=== PATIENT | female | born 1945 | race Caucasian/White ===

== ENCOUNTER 2016-07-26 23:52 | Inpatient (IN) | payer MEDICARE, OTHER ==
[2016-07-27] MEDS ORDERED: HYDROmorphone 1 MG/ML 1 ML SYRINGE IVP STA (00:51)
[2016-07-27] MEDS ORDERED: ONDANSETRON 4 MG/2 ML VIAL IVP STA (00:51)
[2016-07-27] MEDS ORDERED: SODIUM CHLORIDE 0.9% 1,000 ML IV ONE (00:51)
--- NOTE | 2016-07-27 01:11 | ED ---
Abdominal Pain HPI - General Source: patient, RN notes reviewed Mode of arrival: wheelchair Limitations: no limitations <Sarah Toney - Last Filed: 07/27/16 04:21> <Collin Barnhart - Last Filed: 08/03/16 08:51> - General Chief Complaint: Abdominal Pain Stated Complaint: Abd Pain/Vomiting Time Seen by Provider: 07/27/16 00:25 - History of Present Illness Initial Comments: Patient is a 70-year-old female presents to the emergency room for evaluation of abdominal pain. Patient states the pain began around 7 PM this evening. Patient states the pain began about 2 hours after she ate. Patient states the pain is sharp and constant. Patient states she never had pain this bad before. Patient states the pain is a right upper quadrant radiates to her back. Patient states that she's been vomiting from the pain. Patient does admit that she's had slight right upper quadrant pain over the past few weeks and is supposed to go in for an ultrasound of her gallbladder tomorrow morning. Patient states she has a history section. Patient denies any other surgical histories in her abdomen. Patient denies chest pain, shortness of breath, fevers, chills. Patient denies constipation or diarrhea. Patient states she is very nauseous right now. Patient states having 10 out of 10 pain. (Sarah Toney) - Related Data Home Medications Medication Instructions Recorded Confirmed Aspirin 81 mg PO HS 11/03/14 07/27/16 Cetirizine HCl [Zyrtec] 10 mg PO DAILY PRN 11/03/14 07/27/16 Cholecalciferol [Vitamin D3] 1,000 unit PO DAILY@69911/03/14 07/27/16 FLUoxetine HCL [PROzac] 20 mg PO DAILY@69911/03/14 07/27/16 Fenofibrate Nanocrystallized 145 mg PO HS 11/03/14 07/27/16 [Tricor] Fluticasone/Salmeterol [Advair 1 puff INHALATION RT-BID 11/03/14 07/27/16 100-50 Diskus] Metoprolol Tartrate [Lopressor] 50 mg PO BID 11/03/14 07/27/16 Pantoprazole Sodium 40 mg PO DAILY@59911/03/14 07/27/16 Sucralfate [Carafate] 1 gm PO QID PRN 11/03/14 07/27/16 Albuterol Sulfate [Proventil Hfa] 2 puff INHALATION RT-Q6H PRN 07/27/16 07/27/16 Digoxin [Lanoxin] 125 mcg PO DAILY 07/27/16 07/27/16 Estradiol [Vagifem] 10 mcg VAGINAL Q72H 07/27/16 07/27/16 Levothyroxine Sodium [Synthroid] 112 mcg PO DAILY@0600 07/27/16 07/27/16 busPIRone HCL 15 mg PO DAILY@0600 07/27/16 07/27/16 mg Trisilicate/Alh/Nahco3/Aa 2 tab PO QID PRN 07/27/16 07/27/16 [Gaviscon 80-14.2 mg Tab Chew] Previous Rx's Medication Instructions Recorded Amoxic-Pot Clav 875-125Mg 1 tab PO Q12HR #14 tablet 07/28/16 [Augmentin 875-125] traMADol HCl [Ultram] 50 mg PO Q4H PRN #20 tab 07/28/16 Ondansetron HCl [Zofran] 4 mg PO Q6H PRN #14 tablet 07/29/16 traMADol HCl [Ultram] 50 mg PO QID tab 07/29/16 Allergies Allergy/AdvReac Type Severity Reaction Status Date / Time atorvastatin calcium Allergy Itching Verified 07/27/16 08:29 [From Lipitor] codeine Allergy Nausea Verified 07/27/16 08:29 erythromycin base Allergy Abdominal Verified 07/27/16 08:29 Pain yeast, dried [yeast] Allergy Nausea & Verified 07/27/16 08:29 Vomiting & Diarrhea Iodinated Contrast Media - AdvReac KIDNEY Verified 07/27/16 08:43 Oral and ISSUES Review of Systems ROS Other: All systems not noted in ROS Statement are negative. <Sarah Toney - Last Filed: 07/27/16 04:21> ROS Other: All systems not noted in ROS Statement are negative. <Collin Barnhart - Last Filed: 08/03/16 08:51> ROS Statement: Those systems with pertinent positive or pertinent negative responses have been documented in the HPI. Past Medical History Past Medical History: Atrial Fibrillation, Asthma, GERD/Reflux, Hyperlipidemia, Thyroid Disorder Additional Past Medical History / Comment(s): lo, back pain DDD SPINAL STENOSIS, BOARDERLINE DIABETIC, KIDNEY STONES, UTI, CATARACT History of Any Multi-Drug Resistant Organisms: None Reported Past Surgical History: Adenoidectomy, Breast Surgery, Section, Orthopedic Surgery, Tonsillectomy Additional Past Surgical History / Comment(s): thyroidectomy, LT KNEE REPLACEMENT(HAD SEVERAL SX ON THAT KNEE, 1 ST ONE HAD A TORN MENISCUS HAD SX THEN GOT INFECTION /SEPTIC HAD TO REOPEN IT. THEN 20 YEARS LATER HAD A TOTAL KNEE REPLACEMENT.MILES CARPAL TUNNEL, CKC, 3 RT BREAST LUMPS REMOVED ALL BENIGN, STERO BIOPSY FOR SUSPICIUS CALCIFICATION BUT CAME BACK BENIGN, Past Anesthesia/Blood Transfusion Reactions: Motion Sickness Past Psychological History: Depression Smoking Status: Never smoker Past Alcohol Use History: Occasional Past Drug Use History: None Reported - Past Family History Father Additional Family Medical History / Comment(s): PARONIOD SCHITZ, HX TB. COMMITTED SUICIDE. Mother Additional Family Medical History / Comment(s): LEG INFECTION PT BECAME SEPTIC WAS HOSPITALIZED BUT . <Sarah Toney - Last Filed: 07/27/16 04:21> General Exam Limitations: no limitations General appearance: alert, in no apparent distress Head exam: Present: atraumatic, normocephalic, normal inspection Eye exam: Present: normal appearance ENT exam: Present: normal exam Neck exam: Present: normal inspection Respiratory exam: Present: normal lung sounds bilaterally. Absent: respiratory distress Cardiovascular Exam: Present: regular rate, normal rhythm, normal heart sounds GI/Abdominal exam: Present: soft, tenderness (RUQ), guarding (Voluntary guarding on palpating over the right upper quadrant), normal bowel sounds. Absent: distended, rebound, rigid Extremities exam: Present: normal inspection Back exam: Present: normal inspection Neurological exam: Present: alert, oriented X3, CN II-XII intact, normal gait Psychiatric exam: Present: normal affect, normal mood Skin exam: Present: warm, dry, intact, normal color. Absent: rash <Sarah Toney - Last Filed: 07/27/16 04:21> <Collin Barnhart - Last Filed: 08/03/16 08:51> - General Exam Comments Initial Comments: Laying in exam room, she was uncomfortable secondary to pain, no acute distress (Sarah Toney) Medical Decision Making - Lab Data Result diagrams: 07/27/16 00:50 07/27/16 00:50 - Radiology Data Radiology results: report reviewed, image reviewed <Sarah Toney - Last Filed: 07/27/16 04:21> - Lab Data Result diagrams: 07/29/16 06:28 07/29/16 06:28 <Collin Barnhart - Last Filed: 08/03/16 08:51> - Medical Decision Making Patient is a 70-year-old female presents to the emergency room for evaluation of abdominal pain. Labs shows no significant findings. However, ultrasound: Findings raising concern for the presence of acute cholecystitis. Examination of mild biliary and pancreatic ductal dilation can be seen in the setting of choledocholithiasis distally located stone, or due to a process involving the pancreatic head, the former of which is favored given the other findings present (per radiology). Case discussed with Dr. Barnhart. Patient will be admitted and further evaluated by general surgery. (Sarah Toney) I saw this patient in conjunction with the physician diver assistant. I performed independent history and physical exam. Agree with case management. (Collin Barnhart) - Lab Data Lab Results 07/27/16 07/27/16 07/27/16 Range/Units 00:50 00:50 00:50 WBC 6.3 (3.8-10.6) k/uL RBC 4.64 (3.80-5.40) m/uL Hgb 13.5 (11.4-16.0) gm/dL Hct 38.8 (34.0-46.0) % MCV 83.7 (80.0-100.0) fL MCH 29.2 (25.0-35.0) pg MCHC 34.9 (31.0-37.0) g/dL RDW 12.6 (11.5-15.5) % Plt Count 197 (150-450) k/uL Neutrophils % 70 % Lymphocytes % 23 % Monocytes % 5 % Eosinophils % 1 % Basophils % 0 % Neutrophils # 4.4 (1.3-7.7) k/uL Lymphocytes # 1.4 (1.0-4.8) k/uL Monocytes # 0.3 (0-1.0) k/uL Eosinophils # 0.1 (0-0.7) k/uL Basophils # 0.0 (0-0.2) k/uL Sodium 143 (137-145) mmol/L Potassium 4.1 (3.5-5.1) mmol/L Chloride 106 (98-107) mmol/L Carbon Dioxide 21 L (22-30) mmol/L Anion Gap 16 mmol/L BUN 23 H (7-17) mg/dL Creatinine 1.10 H (0.52-1.04) mg/dL Est GFR (MDRD) Af Amer 60 (>60 ml/min/1.73 sqM) Est GFR (MDRD) Non-Af 49 (>60 ml/min/1.73 sqM) Glucose 182 H (74-99) mg/dL Estimated Ave Glu mg/dL 126 mg/dL Hemoglobin A1c 6.0 (4.2-6.1) % Calcium 10.2 (8.4-10.2) mg/dL Magnesium 1.6 (1.6-2.3) mg/dL Total Bilirubin 0.6 (0.2-1.3) mg/dL AST 26 (14-36) U/L ALT 38 (9-52) U/L Alkaline Phosphatase 61 (38-126) U/L Total Protein 7.2 (6.3-8.2) g/dL Albumin 4.6 (3.5-5.0) g/dL Amylase 41 (30-110) U/L Lipase 113 (23-300) U/L Urine Color Urine Appearance (Clear) Urine pH (5.0-8.0) Ur Specific [place] (1.001-1.035) Urine Protein (Negative) Urine Glucose (UA) (Negative) Urine Ketones (Negative) Urine Blood (Negative) Urine Nitrate (Negative) Urine Bilirubin (Negative) Urine Urobilinogen (<2.0) mg/dL Ur Leukocyte Esterase (Negative) Urine RBC (0-5) /hpf Ur Squamous Epith Cells (0-4) /hpf Amorphous Sediment (None) /hpf Urine Bacteria (None) /hpf Urine Mucus (None) /hpf 07/27/16 Range/Units 01:55 WBC (3.8-10.6) k/uL RBC (3.80-5.40) m/uL Hgb (11.4-16.0) gm/dL Hct (34.0-46.0) % MCV (80.0-100.0) fL MCH (25.0-35.0) pg MCHC (31.0-37.0) g/dL RDW (11.5-15.5) % Plt Count (150-450) k/uL Neutrophils % % Lymphocytes % % Monocytes % % Eosinophils % % Basophils % % Neutrophils # (1.3-7.7) k/uL Lymphocytes # (1.0-4.8) k/uL Monocytes # (0-1.0) k/uL Eosinophils # (0-0.7) k/uL Basophils # (0-0.2) k/uL Sodium (137-145) mmol/L Potassium (3.5-5.1) mmol/L Chloride (98-107) mmol/L Carbon Dioxide (22-30) mmol/L Anion Gap mmol/L BUN (7-17) mg/dL Creatinine (0.52-1.04) mg/dL Est GFR (MDRD) Af Amer (>60 ml/min/1.73 sqM) Est GFR (MDRD) Non-Af (>60 ml/min/1.73 sqM) Glucose (74-99) mg/dL Estimated Ave Glu mg/dL mg/dL Hemoglobin A1c (4.2-6.1) % Calcium (8.4-10.2) mg/dL Magnesium (1.6-2.3) mg/dL Total Bilirubin (0.2-1.3) mg/dL AST (14-36) U/L ALT (9-52) U/L Alkaline Phosphatase (38-126) U/L Total Protein (6.3-8.2) g/dL Albumin (3.5-5.0) g/dL Amylase (30-110) U/L Lipase (23-300) U/L Urine Color Yellow Urine Appearance Cloudy H (Clear) Urine pH 8.0 (5.0-8.0) Ur Specific [place] 1.013 (1.001-1.035) Urine Protein Negative (Negative) Urine Glucose (UA) Negative (Negative) Urine Ketones Negative (Negative) Urine Blood Negative (Negative) Urine Nitrate Negative (Negative) Urine Bilirubin Negative (Negative) Urine Urobilinogen <2.0 (<2.0) mg/dL Ur Leukocyte Esterase Negative (Negative) Urine RBC 2 (0-5) /hpf Ur Squamous Epith Cells 5 H (0-4) /hpf Amorphous Sediment Rare H (None) /hpf Urine Bacteria Occasional H (None) /hpf Urine Mucus Rare H (None) /hpf Disposition Decision Date: 07/27/16 <Sarah Toney - Last Filed: 07/27/16 04:21> <Collin Barnhart - Last Filed: 08/03/16 08:51> Clinical Impression: Abdominal pain Disposition: ADMITTED IP TO THIS HOSP Condition: Stable
[2016-07-27 01:14] LABS: Basophils % (A) 0 %; CH 30.4; CHCM 36.5; Eosinophils # (A) 0.1 k/uL (0-0.7); Eosinophils % (A) 1 %; HCT 38.8 % (34.0-46.0); HDW 2.75; HGB 13.5 gm/dL (11.4-16.0); Luc % (Auto) 2; Lymphocytes # (A) 1.4 k/uL (1.0-4.8); Lymphocytes % (A) 23 %; MCH 29.2 pg (25.0-35.0); MCHC 34.9 g/dL (31.0-37.0); MCV 83.7 fL (80.0-100.0); Mean Platelet Volume 7.5; Monocytes # (A) 0.3 k/uL (0-1.0); Monocytes % (A) 5 %; Neutrophils # (A) 4.4 k/uL (1.3-7.7); Neutrophils % (A) 70 %; RBC 4.64 m/uL (3.80-5.40); RDW 12.6 % (11.5-15.5); WBC 6.3 k/uL (3.8-10.6)
[2016-07-27 01:18] LABS: Calcium 10.2 mg/dL (8.4-10.2); Magnesium 1.6 mg/dL (1.6-2.3); Potassium 4.1 mmol/L (3.5-5.1); Total Bilirubin 0.6 mg/dL (0.2-1.3); Total Protein 7.2 g/dL (6.3-8.2)
--- NOTE | 2016-07-27 01:47 | US ---
EXAM: US Abdomen Limited, Right Upper Quadrant. CLINICAL HISTORY: Reason: Pain TECHNIQUE: Real-time ultrasound of the right upper quadrant with image documentation. COMPARISON: No relevant prior studies available. FINDINGS: Liver: Mildly enlarged liver measuring 18.9 cm in length with diffusely increased echogenicity consistent with generalized hepatic steatosis. Intra-and extrahepatic biliary duct dilatation with common duct measuring up to 10 mm in the melecio hepatis. Gallbladder: Distended gallbladder, which contains an approximate or 13-14 mm stone that appears lodged in the region of the gallbladder neck, and smaller stones or debris elsewhere within the gallbladder. While no gallbladder wall thickening or pericholecystic fluid is seen, there was a reported sonographic Chaves sign. Common bile duct: See above. Pancreas: Mild pancreatic ductal dilatation with common duct measuring just over 3 mm in the proximal to mid pancreas. The distal pancreas is not seen. Right kidney: Unremarkable. No stones. No solid mass. No hydronephrosis. IMPRESSION: 1. Findings raising concern for the presence of acute cholecystitis. 2. The combination of mild biliary and pancreatic ductal dilatation can be seen in the setting of choledocholithiasis with distally located stone, or due to a process involving the pancreatic head, the former of which is favored given the other findings present. Further evaluation the form of MRI/MRCP could be considered on a follow-up basis.
[2016-07-27 02:12] LABS: Amorphous Sediment,Urine Rare /hpf; Appearance,Urine Cloudy (Clear); Bacteria,Urine Occasional /hpf; Bilirubin,Urine Negative (Negative); Glucose,Urine (UA) Negative (Negative); Ketones,Urine Negative (Negative); Leukocyte Esterase,Urine Negative (Negative); Mucus,Urine Rare /hpf; Nitrite,Urine Negative (Negative); Particle Count 6108; Protein,Urine Negative (Negative); RBC,Urine 2 /hpf (0-5); Specific Gravity,Urine 1.013 (1.001-1.035); Squamous Epithelial Cell,Urine 5 /hpf (0-4); UA Billing (MACRO vs. MICRO) MICRO; Urobilinogen,Urine <2.0 mg/dL (<2.0)
[2016-07-27] MEDS ORDERED: HYDROmorphone 1 MG/ML 1 ML SYRINGE IV PRN (02:28)
[2016-07-27] MEDS ORDERED: NALOXONE 0.4 MG/ML 1 ML VIAL IV PRN (02:28)
[2016-07-27] MEDS ORDERED: SODIUM CHLORIDE 0.9% 1,000 ML IV SCH (02:30)
[2016-07-27 03:50] VITALS: BMI 29.2
[2016-07-27] MEDS ORDERED: LORATADINE 10 MG TAB PO PRN (07:50)
[2016-07-27] MEDS ORDERED: SYMBICORT 80-4.5 MCG INHALER INHALATION PRN (07:50)
[2016-07-27] MEDS ORDERED: SUCRALFATE 1 GM TAB PO PRN (07:50)
[2016-07-27] MEDS ORDERED: IPRATROPIUM-ALBUTEROL 3 ML NEB INHALATION PRN (07:50)
[2016-07-27] MEDS ORDERED: DIGOXIN 250 MCG TAB PO SCH (09:00)
[2016-07-27] MEDS ORDERED: LEVOTHYROXINE 125 MCG TAB PO SCH (09:00)
[2016-07-27] MEDS: METOPROLOL TARTRATE 50 MG TAB PO SCH ×2 (09:31→20:51)
[2016-07-27] MEDS: FLUoxetine HCL 20 MG CAP PO SCH (09:32)
[2016-07-27] MEDS: PANTOPRAZOLE 40 MG TABLET PO SCH (09:32)
[2016-07-27] MEDS: CHOLECALCIFEROL 1,000 UNIT TAB PO SCH (09:33)
[2016-07-27] MEDS ORDERED: ALBUTEROL NEBULIZED 2.5 MG/3 ML INHALATION PRN (09:34)
[2016-07-27] MEDS: ONDANSETRON 4 MG/2 ML VIAL IVP PRN ×2 (09:44→20:19)
[2016-07-27] MEDS: LEVOTHYROXINE 112 MCG TAB PO SCH (09:46)
[2016-07-27] MEDS ORDERED: DEXAMETHASONE SOD PHOS (MDV) 100 MG/10 ML VIAL ONE (10:29)
[2016-07-27] MEDS ORDERED: ONDANSETRON 4 MG/2 ML VIAL ONE (10:29)
[2016-07-27] MEDS ORDERED: ROCURONIUM BROMIDE 10 MG/ML 10 ML VIAL IV ONE (10:29)
[2016-07-27] MEDS ORDERED: LIDOCAINE 1% INJ 10MG/ML (20 ML MDV) ONE (10:29)
[2016-07-27] MEDS ORDERED: KETOROLAC 30 MG/ML 1 ML VIAL ONE (10:29)
[2016-07-27] MEDS ORDERED: PHENYLEPHRINE-0.9% NACL SYG 1 MG/10 ML SYRINGE ONE (10:29)
[2016-07-27] MEDS ORDERED: PROPOFOL 10 MG/ML 20 ML VIAL IV ONE (10:29)
[2016-07-27] MEDS ORDERED: SUCCINYLCHOLINE CHLORIDE 100 MG/5 ML SYR IV ONE (10:29)
[2016-07-27] MEDS ORDERED: HYDROmorphone (PF) 1 MG/ML ONE (10:29)
[2016-07-27] MEDS ORDERED: MIDAZOLAM 2 MG/2 ML VIAL ONE (10:29)
[2016-07-27] MEDS ORDERED: GLYCOPYRROLATE 0.2 MG/ML 2 ML VIAL ONE (10:29)
[2016-07-27] MEDS ORDERED: NEOSTIGMINE 1 MG/ML 10 ML VIAL ONE (10:29)
[2016-07-27] MEDS ORDERED: fentaNYL (PF) 50 MCG/ML 2 ML AMP ONE (10:29)
[2016-07-27] MEDS: SODIUM CHLORIDE 0.9% 1,000 ML IV SCH (11:48)
--- NOTE | 2016-07-27 12:28 | P.GSCN ---
History of Present Illness Consult date: 07/27/16 Reason for Consult: Cholecystitis Requesting physician: Twila Medina History of present illness: Thank you very much for asking me to see Mrs. Wall who I just saw in the office last week. She had commented that time for evaluation for screening colonoscopy. She developed severe abdominal pain last night presented to the emergency room. Had some nausea and vomiting. The pain radiated the to the back. Similar symptoms. Ultrasound showed cholelithiasis with a stone impacted in the area of the neck of the gallbladder. The jaundice. No major change in her bowel habits. No definite fever or chills at home. Past history well-documented. Since for degenerative joint disease with multiple replacements. in 1982. Thyroidectomy for Lo's disease. Breast lumpectomies for benign disease. Has uncomplicated asthma. Atrial fibrillation on digoxin. History of depression, reflux disease hyperlipidemia. Medications as listed including Synthroid Protonix Lopressor Lanoxin Prozac buspirone TriCor Advair Diskus Combivent Vagifem vitamin D.. ALLERGIES Yeast, codeine, Lipitor no erythromycin. Social history and family history well-documented. Systems review as above. No chest pain or cough hemoptysis. No urinary symptoms. No vaginal discharge or bleeding. No TIN POURER problems at this time. On examination the patient is well-built well-nourished has a low-grade fever. Little overweight at the 77 kg BMI of 29.2. She is anicteric hydration borderline. Heart regular. The lungs are clear. Abdomen is soft with marked tenderness in the right upper quadrant with some guarding. No mass or organomegaly or hernias noted. LFTs are normal. WBC mildly elevated. Ultrasound reviewed. Impression acute cholecystitis cholelithiasis medical issues as above. Recommendation continue IV fluids antibiotics. Recommend a laparoscopic cholecystectomy possible open and informed consent was obtained procedure having been explained to him including potential complications particular bleeding and infection surrounding injury possibly of open surgery etc. she understood and agree to proceed. Past Medical History Past Medical History: Atrial Fibrillation, Asthma, GERD/Reflux, Hyperlipidemia, Thyroid Disorder Additional Past Medical History / Comment(s): lo, back pain DDD SPINAL STENOSIS, BOARDERLINE DIABETIC, KIDNEY STONES, UTI, CATARACT History of Any Multi-Drug Resistant Organisms: None Reported Past Surgical History: Adenoidectomy, Breast Surgery, Section, Orthopedic Surgery, Tonsillectomy Additional Past Surgical History / Comment(s): thyroidectomy, LT KNEE REPLACEMENT(HAD SEVERAL SX ON THAT KNEE, 1 ST ONE HAD A TORN MENISCUS HAD SX THEN GOT INFECTION /SEPTIC HAD TO REOPEN IT. THEN 20 YEARS LATER HAD A TOTAL KNEE REPLACEMENT.MILES CARPAL TUNNEL, CKC, 3 RT BREAST LUMPS REMOVED ALL BENIGN, STERO BIOPSY FOR SUSPICIUS CALCIFICATION BUT CAME BACK BENIGN, Past Anesthesia/Blood Transfusion Reactions: Motion Sickness Additional Past Anesthesia/Blood Transfusion Reaction / Comm: Anesthesia- depends on what they give her. Past Psychological History: Depression Additional Psychological History / Comment(s): Takes prozac and busporin Smoking Status: Never smoker Past Alcohol Use History: Occasional Past Drug Use History: None Reported - Past Family History Father Additional Family Medical History / Comment(s): PARONIOD [place]EVER[place], HX TB. COMMITTED SUICIDE. Mother Additional Family Medical History / Comment(s): LEG INFECTION PT BECAME SEPTIC WAS HOSPITALIZED BUT . Medications and Allergies Home Medications Medication Instructions Recorded Confirmed Type Aspirin 81 mg PO HS 11/03/14 07/27/16 History Cetirizine HCl [Zyrtec] 10 mg PO DAILY PRN 11/03/14 07/27/16 History Cholecalciferol [Vitamin D3] 1,000 unit PO DAILY@0700 11/03/14 07/27/16 History FLUoxetine HCL [PROzac] 20 mg PO DAILY@0700 11/03/14 07/27/16 History Fenofibrate Nanocrystallized 145 mg PO HS 11/03/14 07/27/16 History [Tricor] Fluticasone/Salmeterol [Advair 1 puff INHALATION RT-BID 11/03/14 07/27/16 History 100-50 Diskus] Metoprolol Tartrate [Lopressor] 50 mg PO BID 11/03/14 07/27/16 History Pantoprazole Sodium 40 mg PO DAILY@0600 11/03/14 07/27/16 History Sucralfate [Carafate] 1 gm PO QID PRN 11/03/14 07/27/16 History Albuterol Sulfate [Proventil Hfa] 2 puff INHALATION RT-Q6H PRN 07/27/16 History Digoxin [Lanoxin] 125 mcg PO DAILY 07/27/16 07/27/16 History Estradiol [Vagifem] 10 mcg VAGINAL Q72H 07/27/16 07/27/16 History Krill Oil 500 mg PO DAILY 07/27/16 07/27/16 History Levothyroxine Sodium [Synthroid] 112 mcg PO DAILY@0600 07/27/16 07/27/16 History busPIRone HCL 15 mg PO DAILY@0600 07/27/16 07/27/16 History mg Trisilicate/Alh/Nahco3/Aa 2 tab PO QID PRN 07/27/16 07/27/16 History [Gaviscon 80-14.2 mg Tab Chew] Allergies Allergy/AdvReac Type Severity Reaction Status Date / Time atorvastatin calcium Allergy Itching Verified 07/27/16 08:29 [From Lipitor] codeine Allergy Nausea Verified 07/27/16 08:29 erythromycin base Allergy Abdominal Verified 07/27/16 08:29 Pain yeast, dried [yeast] Allergy Nausea & Verified 07/27/16 08:29 Vomiting & Diarrhea Iodinated Contrast Media - AdvReac KIDNEY Verified 07/27/16 08:43 Oral and ISSUES Surgical - Exam Vital Signs Temp Pulse Resp BP Pulse Ox 97.7 F 80 20 130/64 97 07/27/16 00:12 07/27/16 00:12 07/27/16 00:12 07/27/16 00:12 07/27/16 00:12 Results - Labs 07/27/16 00:50 07/27/16 00:50
[2016-07-27] MEDS: metroNIDAZOLE-NS PMX 500 MG in SALINE 1 100ML.BAG IVPB SCH ×2 (12:32→20:12)
[2016-07-27 13:27] LABS: Glucose,Whole Blood 103 mg/dL (75-99)
[2016-07-27] MEDS: INSULIN LISPRO (humaLOG) 300 UNIT/3 ML VIAL SQ SCH ×3 (13:30→21:04)
[2016-07-27] MEDS ORDERED: HYDROmorphone 1 MG/ML 1 ML SYRINGE IVP PRN (14:40)
--- NOTE | 2016-07-27 14:41 | P.HPIM ---
History of Present Illness H&P Date: 07/27/16 Chief Complaint: Abdominal pain This is a 70-year-old female. Her primary care physician is Dr. Harrington. She has a past medical history of atrial fibrillation, mild intermittent asthma, gastroesophageal reflux disease, hypothyroidism with Lo, degenerative disc disease of the lumbar spine and spinal stenosis, borderline diabetic, kidney stones, urinary tract infection, cataract, depression. Patient states that she has had some abdominal pain in the right upper quadrant for couple weeks but was very mild. Yesterday at 7 PM approximately 2 hours after she ate she developed sharp constant abdominal pain to the right upper quadrant along with vomiting. She came into [facility] emergency center with the above area and abdominal ultrasound showed acute cholecystitis. Mild biliary and pancreatic ductal dilatation may be seen in the setting of choledocholelithiasis with distally located stone or due to process involving the pancreatic head. CBC was normal. BUN 23 and creatinine 1.1 with GFR of 49. This appears to be patient's baseline. Blood sugar was 182 red amylase and lipase were normal as well as liver function tests. Urinalysis was cloudy, occasional bacteria, leukoesterase and nitrate negative. Patient was [facility] floor and started on Zofran, Dilaudid for pain, IV fluids and consult with Dr. Jamilah cool. He is planning for cholecystectomy for tomorrow. Patient is also started on IV antibiotics in form of ceftriaxone and Flagyl. Review of Systems All systems: negative Constitutional: Denies chills, Denies fever Eyes: denies blurred vision, denies pain Ears, nose, mouth and throat: Denies headache, Denies sore throat Cardiovascular: Denies chest pain, Denies shortness of breath Respiratory: Denies cough Gastrointestinal: Reports abdominal pain, Reports bloating, Reports nausea, Reports vomiting, Denies coffee ground emesis, Denies diarrhea, Denies hematemesis, Denies hematochezia, Denies melena Genitourinary: Denies dysuria, Denies hematuria Musculoskeletal: Denies myalgias Integumentary: Denies pruritus, Denies rash Neurological: Denies numbness, Denies weakness Psychiatric: Denies anxiety, Denies depression Endocrine: Denies fatigue, Denies weight change Past Medical History Past Medical History: Atrial Fibrillation, Asthma, GERD/Reflux, Hyperlipidemia, Thyroid Disorder Additional Past Medical History / Comment(s): lo, back pain DDD SPINAL STENOSIS, BOARDERLINE DIABETIC, KIDNEY STONES, UTI, CATARACT History of Any Multi-Drug Resistant Organisms: None Reported Past Surgical History: Adenoidectomy, Breast Surgery, Section, Orthopedic Surgery, Tonsillectomy Additional Past Surgical History / Comment(s): thyroidectomy, LT KNEE REPLACEMENT(HAD SEVERAL SX ON THAT KNEE, 1 ST ONE HAD A TORN MENISCUS HAD SX THEN GOT INFECTION /SEPTIC HAD TO REOPEN IT. THEN 20 YEARS LATER HAD A TOTAL KNEE REPLACEMENT.MILES CARPAL TUNNEL, CKC, 3 RT BREAST LUMPS REMOVED ALL BENIGN, STERO BIOPSY FOR SUSPICIUS CALCIFICATION BUT CAME BACK BENIGN, Past Anesthesia/Blood Transfusion Reactions: Motion Sickness Additional Past Anesthesia/Blood Transfusion Reaction / Comment(s): Anesthesia- depends on what they give her. Past Psychological History: Depression Additional Psychological History / Comment(s): Takes prozac and busporin Smoking Status: Never smoker Past Alcohol Use History: Occasional Past Drug Use History: None Reported - Past Family History Father Additional Family Medical History / Comment(s): PARONIOD BEVERLY, HX TB. COMMITTED SUICIDE. Mother Additional Family Medical History / Comment(s): Mother at age 86 with history of hyperlipidemia. She had leg infection that became septic and she from this and acute kidney injury. Daughter(s) Additional Family Medical History / Comment(s): Malcolm has 2 children with no major medical problems. Medications and Allergies Home Medications Medication Instructions Recorded Confirmed Type Aspirin 81 mg PO HS 11/03/14 07/27/16 History Cetirizine HCl [Zyrtec] 10 mg PO DAILY PRN 11/03/14 07/27/16 History Cholecalciferol [Vitamin D3] 1,000 unit PO DAILY@0700 11/03/14 07/27/16 History FLUoxetine HCL [PROzac] 20 mg PO DAILY@0700 11/03/14 07/27/16 History Fenofibrate Nanocrystallized 145 mg PO HS 11/03/14 07/27/16 History [Tricor] Fluticasone/Salmeterol [Advair 1 puff INHALATION RT-BID 11/03/14 07/27/16 History 100-50 Diskus] Metoprolol Tartrate [Lopressor] 50 mg PO BID 11/03/14 07/27/16 History Pantoprazole Sodium 40 mg PO DAILY@0600 11/03/14 07/27/16 History Sucralfate [Carafate] 1 gm PO QID PRN 11/03/14 07/27/16 History Albuterol Sulfate [Proventil Hfa] 2 puff INHALATION RT-Q6H PRN 07/27/16 History Digoxin [Lanoxin] 125 mcg PO DAILY 07/27/16 07/27/16 History Estradiol [Vagifem] 10 mcg VAGINAL Q72H 07/27/16 07/27/16 History Krill Oil 500 mg PO DAILY 07/27/16 07/27/16 History Levothyroxine Sodium [Synthroid] 112 mcg PO DAILY@0600 07/27/16 07/27/16 History busPIRone HCL 15 mg PO DAILY@0600 07/27/16 07/27/16 History mg Trisilicate/Alh/Nahco3/Aa 2 tab PO QID PRN 07/27/16 07/27/16 History [Gaviscon 80-14.2 mg Tab Chew] Allergies Allergy/AdvReac Type Severity Reaction Status Date / Time atorvastatin calcium Allergy Itching Verified 07/27/16 08:29 [From Lipitor] codeine Allergy Nausea Verified 07/27/16 08:29 erythromycin base Allergy Abdominal Verified 07/27/16 08:29 Pain yeast, dried [yeast] Allergy Nausea & Verified 07/27/16 08:29 Vomiting & Diarrhea Iodinated Contrast Media - AdvReac KIDNEY Verified 07/27/16 08:43 Oral and ISSUES Physical Exam Vitals: Vital Signs Temp Pulse Pulse Resp BP BP Pulse Ox 07/27/16 07:00 98.9 F 96 16 119/54 98 07/27/16 03:30 74 14 07/27/16 03:22 98.2 F 74 14 95 07/27/16 02:50 78 16 124/68 98 Intake and Output 07/26/16 07/27/16 07/27/16 22:59 06:59 14:59 Other: Voiding Method Toilet Weight 77.111 kg Gen: This is a 70-year-old female. She is resting in bed and appears to be in no acute distress. HEENT: Head is atraumatic, normocephalic. Pupils equal, round. Sclerae is anicteric. Mucous membranes of the mouth are slightly dry. NECK: Supple. No JVD. No lymphadenopathy. No thyromegaly. LUNGS: Clear to auscultation. No wheezes or rhonchi. No intercostal retractions. HEART: Regular rate and rhythm. No murmur. ABDOMEN: Soft. Bowel sounds are present. No masses. Right upper quadrant tenderness. EXTREMITIES: No pedal edema. No calf tenderness. NEUROLOGICAL: Patient is awake, alert and oriented x3. Cranial nerves 2 through 12 are grossly intact. Results CBC & Chem 7: 07/27/16 00:50 07/27/16 00:50 Thrombosis Risk Factor Assmnt - DVT/VTE Prophylaxis DVT/VTE Prophylaxis: Pharmacologic Prophylaxis ordered - Choose All That Apply Any of the Below Risk Factors Present?: No Other Risk Factors: Yes Each Risk Factor Represents 2 Points: Age 61-74 years Other congenital or acquired thrombophilia - If yes, enter type in comment: No Thrombosis Risk Factor Assessment Total Risk Factor Score: 2 Thrombosis Risk Factor Assessment Level: Low Risk Assessment and Plan Plan: 1. Acute abdominal pain with vomiting due to acute cholecystitis. Continue Zofran for nausea, Dilaudid for pain, Flagyl and ceftriaxone. Consult with Dr. Jamilah cornejo. Patient plan for cholecystectomy for tomorrow. 2. Asthma, mild intermittent. Continue albuterol 4 times daily as needed, Symbicort twice daily. 3. History of paroxysmal atrial fibrillation. Continue digoxin 125 g daily, Lopressor 50 mg twice daily. 4. Hypothyroidism. Continue levothyroxine. 5. Borderline diabetic. Humalog scale. 6. Depression. Continue Prozac and BuSpar. 7. Esophageal reflux disease and gastric intestinal prophylaxis. Continue Protonix. 8. Hyperlipidemia. Continue TriCor. 9. Vitamin D deficiency. Continue supplement. 10. Chronic kidney disease stage III. Monitor kidney function. 11. DVT prophylaxis. Heparin subcu. Patient will be admitted to the hospital for a minimum of 2 night stay. Discharge plan: Return home Impression and plan of care have been directed as dictated by the signing physician. Ananya Pradhan nurse practitioner acting as scribe for signing physician. Time with Patient: Greater than 30
[2016-07-27 16:58] LABS: Glucose,Whole Blood 118 mg/dL (75-99)
[2016-07-27] MEDS: ACETAMINOPHEN IV (For NPO) 1,000 MG in EMPTY BAG 1 BAG IVPB PRN (17:21)
[2016-07-27] MEDS: SYMBICORT 80-4.5 MCG INHALER INHALATION SCH (19:14)
[2016-07-27] MEDS: MORPHINE SULFATE 2 MG/ML SYRINGE IVP PRN ×2 (20:39→23:12)
[2016-07-27] MEDS: FENOFIBRATE 160 MG TAB PO SCH (20:51)
[2016-07-27 20:58] LABS: Glucose,Whole Blood 129 mg/dL (75-99)
[2016-07-27] MEDS ORDERED: FENOFIBRATE 160 MG TAB PO SCH (21:00)
[2016-07-28] MEDS: SODIUM CHLORIDE 0.9% 1,000 ML IV SCH ×2 (00:41→21:39)
[2016-07-28] MEDS: ACETAMINOPHEN IV (For NPO) 1,000 MG in EMPTY BAG 1 BAG IVPB PRN (01:04)
[2016-07-28] MEDS: MORPHINE SULFATE 2 MG/ML SYRINGE IVP PRN ×5 (01:09→07:54)
[2016-07-28] MEDS: ONDANSETRON 4 MG/2 ML VIAL IVP PRN (04:04)
[2016-07-28] MEDS: metroNIDAZOLE-NS PMX 500 MG in SALINE 1 100ML.BAG IVPB SCH ×2 (04:09→12:00)
[2016-07-28] MEDS: LEVOTHYROXINE 112 MCG TAB PO SCH ×2 (05:55→08:45)
[2016-07-28 07:12] LABS: CH 29.4; CHCM 34.6; HCT 34.8 % (34.0-46.0); HDW 2.75; HGB 11.9 gm/dL (11.4-16.0); MCH 29.1 pg (25.0-35.0); MCHC 34.2 g/dL (31.0-37.0); MCV 85.2 fL (80.0-100.0); Mean Platelet Volume 7.5; RBC 4.08 m/uL (3.80-5.40); RDW 12.6 % (11.5-15.5); WBC 10.9 k/uL (3.8-10.6)
[2016-07-28 07:41] LABS: ALT 42 U/L (9-52); AST 29 U/L (14-36); Alkaline Phosphatase 46 U/L (38-126); Anion Gap 11 mmol/L; Blood Urea Nitrogen 12 mg/dL (7-17); Calcium 8.8 mg/dL (8.4-10.2); Carbon Dioxide 25 mmol/L (22-30); Chloride 105 mmol/L (98-107); Glucose 134 mg/dL (74-99); Non-African American GFR(MDRD) >60 (>60 ml/min/1.73 sqM); Potassium 4.1 mmol/L (3.5-5.1); Sodium 141 mmol/L (137-145); Total Bilirubin 1.4 mg/dL (0.2-1.3); Total Protein 6.2 g/dL (6.3-8.2)
[2016-07-28 07:43] LABS: Glucose,Whole Blood 134 mg/dL (75-99)
[2016-07-28] MEDS: KETOROLAC 30 MG/ML 1 ML VIAL IVP SCH ×3 (08:00→17:39)
[2016-07-28] MEDS: FLUoxetine HCL 20 MG CAP PO SCH (08:45)
[2016-07-28] MEDS: PANTOPRAZOLE 40 MG TABLET PO SCH (08:45)
[2016-07-28] MEDS: METOPROLOL TARTRATE 50 MG TAB PO SCH ×2 (08:46→21:22)
[2016-07-28] MEDS: DIGOXIN 125 MCG TAB PO SCH (08:46)
[2016-07-28] MEDS: INSULIN LISPRO (humaLOG) 300 UNIT/3 ML VIAL SQ SCH ×4 (08:49→21:37)
[2016-07-28] MEDS: SYMBICORT 80-4.5 MCG INHALER INHALATION SCH ×2 (09:38→21:16)
[2016-07-28] MEDS ORDERED: IV FLUID CONTINUATION 250 ML IV ONE (10:00)
[2016-07-28] MEDS ORDERED: BUPIVACAINE (PF) 0.25% 30 ML VIAL SQ ONE ×3 (10:35→10:47)
[2016-07-28] MEDS ORDERED: SODIUM CHLORIDE 0.9% IRRIGATION ONE (10:51)
[2016-07-28] MEDS ORDERED: HEPARIN SODIUM PORCINE IRRIGATION ONE (10:51)
[2016-07-28] MEDS ORDERED: LACTATED RINGERS 1,000 ML IV ONE (11:45)
--- NOTE | 2016-07-28 12:03 | P.OP ---
Date of Procedure: 07/28/16 Preoperative Diagnosis: Acute cholecystitis cholelithiasis Postoperative Diagnosis: Severe acute cholecystitis cholelithiasis Procedure(s) Performed: Laparoscopic cholecystectomy Anesthesia: JASON Surgeon: Viral Askew Estimated Blood Loss (ml): 30 Pathology: other (GB) Condition: stable Disposition: PACU Indications for Procedure: The patient is a 70-year-old white female who was admitted the night and a half ago with severe pain in the right upper quadrant associated with nausea vomiting and ultrasound evidence of cholelithiasis with leukocytosis and tenderness. Laparoscopic cholecystectomy possible open was recommended and informed consent was obtained procedure having been explained to her including potential complication particular bleeding and infection surrounding injury pain hernia etc. she understood and agreed to proceed. Operative Findings: Severe acute cholecystitis cholelithiasis Description of Procedure: After induction of general endotracheal anesthesia the abdominal wall was prepped with Betadine and draped local anesthetic Marcaine 0.5% plain was infiltrated into the skin and subcutaneous tissue just below the umbilicus where a transverse incision was made. The fascia was retracted infiltrated with the Marcaine and a Veress needle then inserted under direct vision with a satisfactory saline drop test. The peritoneal cavity was then inflated with carbon dioxide to pressure approximately 15 mmHg the needle was then replaced with a 10 mm trocar and the laparoscope inserted. 25 mm trochars were placed in the right upper quadrant and another 5 mm trocar in the epigastrium under direct vision. Visual exploration confirmed acute cholecystitis with omental adhesions to the gallbladder that was markedly distended with some fibrinous exudate on the serosal surface. The gallbladder was markedly distended. It had to be aspirated to decompress it. The fluid was sent for cultures. The gallbladder was then retracted area of the neck carefully dissected cystic cystic duct identified and skeletonized. Junction with the gallbladder well visualized. The cystic duct was then triply clipped and divided as was the cystic artery. The gallbladder was then dissected from its bed it was very edematous and thickened and difficult to dissect but eventually was able to be removed and placed in an Endo Catch bag and removed through the umbilical port site. This supra and infrahepatic spaces were thoroughly irrigated. Hemostasis was good and the field was dry. A NIDIA drain was placed in Zee's pouch and brought out through the lateral port site. WAS removed under direct vision. CO2 was evacuated. The fascial incision at the umbilicus closed with interrupted 0 Vicryl sutures and the skin with 4-0 Monocryl subcuticular sutures and Steri-Strips dressings were applied all counts were correct blood loss was about 20 MLS the patient remained stable and was transferred to the recovery room in stable condition. End of dictation
[2016-07-28] MEDS ORDERED: MORPHINE SULFATE 4 MG/ML SYRINGE IVP PRN (12:07)
[2016-07-28] MEDS ORDERED: HYDROcodone/APAP 7.5-325MG 1 EACH TAB PO PRN (12:09)
--- NOTE | 2016-07-28 13:06 | P.PN ---
Subjective This is a 70-year-old female. Her primary care physician is Dr. Harrington. She has a past medical history of atrial fibrillation, mild intermittent asthma, gastroesophageal reflux disease, hypothyroidism with Jing, degenerative disc disease of the lumbar spine and spinal stenosis, borderline diabetic, kidney stones, urinary tract infection, cataract, depression. Patient states that she has had some abdominal pain in the right upper quadrant for couple weeks but was very mild. Yesterday at 7 PM approximately 2 hours after she ate she developed sharp constant abdominal pain to the right upper quadrant along with vomiting. She came into [facility] emergency center with the above area and abdominal ultrasound showed acute cholecystitis. Mild biliary and pancreatic ductal dilatation may be seen in the setting of choledocholelithiasis with distally located stone or due to process involving the pancreatic head. CBC was normal. BUN 23 and creatinine 1.1 with GFR of 49. This appears to be patient's baseline. Blood sugar was 182 red amylase and lipase were normal as well as liver function tests. Urinalysis was cloudy, occasional bacteria, leukoesterase and nitrate negative. Patient was admitted to the MedSurg floor and started on Zofran, Dilaudid for pain, IV fluids and consult with Dr. Askew added. He is planning for cholecystectomy for tomorrow. Patient is also started on IV antibiotics in form of ceftriaxone and Flagyl. 07/28; patient did have low-grade fever during the night. Dilaudid had been switched to morphine. She is receiving as scheduled and not getting relief from her abdominal pain which is significantly worse. Toradol added. Patient denies passing any gas. She is scheduled for cholecystectomy today at [address] Askew. She is on IV Zosyn. Objective - Vital Signs Vital signs: Vital Signs Temp 99.7 F H 07/28/16 01:25 Pulse 74 07/28/16 00:45 Resp 18 07/28/16 00:45 BP 122/62 07/28/16 00:45 Pulse Ox 96 07/28/16 00:45 Intake & Output 07/27/16 07/28/16 07/28/16 18:59 06:59 18:59 Intake Total 980 Output Total 400 1300 Balance -400 -320 Intake: IV 980 Sodium Chloride 0.9% 1, 980 000 ml @ 100 mls/hr IV . Q10H [facility] Rx#:[id number] Output: Urine 400 1300 Other: Voiding Method Toilet Toilet - Exam Gen: This is a 70-year-old female. She is resting in bed and appears to be in no acute distress. HEENT: Head is atraumatic, normocephalic. Pupils equal, round. Sclerae is anicteric. Mucous membranes of the mouth are slightly dry. NECK: Supple. No JVD. No lymphadenopathy. No thyromegaly. LUNGS: Clear to auscultation. No wheezes or rhonchi. No intercostal retractions. HEART: Regular rate and rhythm. No murmur. ABDOMEN: Soft. Bowel sounds are present. No masses. Right upper quadrant tenderness. EXTREMITIES: No pedal edema. No calf tenderness. NEUROLOGICAL: Patient is awake, alert and oriented x3. Cranial nerves 2 through 12 are grossly intact. - Labs CBC & Chem 7: 07/28/16 06:48 07/28/16 06:47 Labs: Abnormal Lab Results - Last 24 Hours (Table) 07/27/16 07/27/16 07/27/16 Range/Units 13:24 16:56 20:56 WBC (3.8-10.6) k/uL POC Glucose (mg/dL) 103 H 118 H 129 H (75-99) mg/dL 07/28/16 Range/Units 06:48 WBC 10.9 H (3.8-10.6) k/uL POC Glucose (mg/dL) (75-99) mg/dL Assessment and Plan Plan: 1. Acute abdominal pain with vomiting due to acute cholecystitis. Continue Zofran for nausea, Morphine for pain, Zosyn. Consult with Dr. Askew appreciated. Patient plan for cholecystectomy. Toradol added. 2. Asthma, mild intermittent. Continue albuterol 4 times daily as needed, Symbicort twice daily. 3. History of paroxysmal atrial fibrillation. Continue digoxin 125 g daily, Lopressor 50 mg twice daily. 4. Hypothyroidism. Continue levothyroxine. 5. Borderline diabetic. Humalog scale. 6. Depression. Continue Prozac and BuSpar. 7. Esophageal reflux disease and gastric intestinal prophylaxis. Continue Protonix. 8. Hyperlipidemia. Continue TriCor. 9. Vitamin D deficiency. Continue supplement. 10. Chronic kidney disease stage III. Monitor kidney function. 11. DVT prophylaxis. Heparin subcu. Patient will be admitted to the hospital for a minimum of 2 night stay. Discharge plan: Return home Impression and plan of care have been directed as dictated by the signing physician. Ananya Pradhan nurse practitioner acting as scribe for signing physician. Time with Patient: Greater than 30
[2016-07-28] MEDS: CHOLECALCIFEROL 1,000 UNIT TAB PO SCH (13:40)
[2016-07-28] MEDS ORDERED: MIDAZOLAM 2 MG/2 ML VIAL IV PRN (13:44)
[2016-07-28] MEDS ORDERED: LACTATED RINGERS 1,000 ML IV SCH (13:44)
[2016-07-28] MEDS: traMADol 50 MG TAB PO SCH ×3 (13:54→21:45)
[2016-07-28] MEDS: PIPERACILLIN-TAZOBACTAM 3.375 GM in DEXTROSE/WATER 1 50ML.BAG IVPB SCH (15:47)
[2016-07-28 17:16] LABS: Glucose,Whole Blood 132 mg/dL (75-99)
[2016-07-28 21:00] LABS: Glucose,Whole Blood 197 mg/dL (75-99)
[2016-07-28] MEDS: FENOFIBRATE 160 MG TAB PO SCH (21:23)
[2016-07-28] MEDS: HEPARIN SODIUM,PORCINE 5,000 UNIT/ML 1 ML VIAL SQ SCH (21:23)
[2016-07-29] MEDS: KETOROLAC 30 MG/ML 1 ML VIAL IVP SCH ×3 (00:08→12:24)
[2016-07-29] MEDS: PIPERACILLIN-TAZOBACTAM 3.375 GM in DEXTROSE/WATER 1 50ML.BAG IVPB SCH ×2 (00:08→09:08)
[2016-07-29] MEDS: SODIUM CHLORIDE 0.9% 1,000 ML IV SCH ×2 (07:08→07:55)
[2016-07-29 07:09] LABS: CH 29.3; CHCM 34.2; HCT 31.4 % (34.0-46.0); HDW 2.72; HGB 10.6 gm/dL (11.4-16.0); MCHC 33.7 g/dL (31.0-37.0); Mean Platelet Volume 7.7; RBC 3.65 m/uL (3.80-5.40); RDW 12.8 % (11.5-15.5); WBC 8.3 k/uL (3.8-10.6)
[2016-07-29 07:20] LABS: Anion Gap 8 mmol/L; Blood Urea Nitrogen 17 mg/dL (7-17); Calcium 8.7 mg/dL (8.4-10.2); Carbon Dioxide 26 mmol/L (22-30); Chloride 107 mmol/L (98-107); Glucose 119 mg/dL (74-99); Non-African American GFR(MDRD) 53 (>60 ml/min/1.73 sqM); Potassium 4.1 mmol/L (3.5-5.1); Sodium 141 mmol/L (137-145)
[2016-07-29 07:28] LABS: Glucose,Whole Blood 116 mg/dL (75-99)
[2016-07-29] MEDS: LEVOTHYROXINE 112 MCG TAB PO SCH (07:36)
[2016-07-29 07:48] VITALS: RESP 16
[2016-07-29] MEDS: INSULIN LISPRO (humaLOG) 300 UNIT/3 ML VIAL SQ SCH ×2 (07:56→12:16)
[2016-07-29] MEDS: PANTOPRAZOLE 40 MG TABLET PO SCH (08:52)
[2016-07-29] MEDS: CHOLECALCIFEROL 1,000 UNIT TAB PO SCH (08:52)
[2016-07-29] MEDS: DIGOXIN 125 MCG TAB PO SCH (08:54)
[2016-07-29] MEDS: FLUoxetine HCL 20 MG CAP PO SCH (08:55)
[2016-07-29] MEDS: HEPARIN SODIUM,PORCINE 5,000 UNIT/ML 1 ML VIAL SQ SCH (08:55)
[2016-07-29] MEDS ORDERED: NON-FORMULARY DRUG (Estradiol [Vagifem] 10 MCG) VG SCH (09:00)
[2016-07-29] MEDS: traMADol 50 MG TAB PO SCH (09:08)
--- NOTE | 2016-07-29 09:12 | P.PN ---
Subjective Principal diagnosis: Acute cholecystitis Patient doing well today. Her pain is much improved. NIDIA drain is serosanguineous. She is tolerating her diet. White blood cell count 8.3. She would like to go home today. Objective - Vital Signs Vital signs: Vital Signs Temp 98.1 F 07/29/16 07:05 Pulse 67 07/29/16 09:02 Resp 16 07/29/16 07:05 BP 94/48 07/29/16 09:07 Pulse Ox 94 L 07/29/16 07:05 Intake & Output 07/28/16 07/29/16 07/29/16 18:59 06:59 18:59 Intake Total 1251 820 300 Output Total 195 670 Balance 1056 150 300 Intake: IV 1251 Intake, IV Titration 820 Amount Lactated Ringers 1,000 ml 820 @ 20 mls/hr IV .Q24H [facility] Rx#:[id number] Oral 300 Output: Drainage 70 Right Lateral Abdomen 70 Urine 180 600 Estimated Blood Loss 15 Other: Voiding Method Toilet # Voids 1 - Exam Abdomen: Soft, nondistended, mild incisional tenderness, NIDIA drain serosanguineous - Labs CBC & Chem 7: 07/29/16 06:28 07/29/16 06:28 Labs: Abnormal Lab Results - Last 24 Hours (Table) 07/28/16 07/28/16 07/29/16 Range/Units 17:13 20:59 06:28 RBC 3.65 L (3.80-5.40) m/uL Hgb 10.6 L (11.4-16.0) gm/dL Hct 31.4 L (34.0-46.0) % Plt Count 143 L (150-450) k/uL Glucose (74-99) mg/dL POC Glucose (mg/dL) 132 H 197 H (75-99) mg/dL 07/29/16 07/29/16 Range/Units 06:28 07:10 RBC (3.80-5.40) m/uL Hgb (11.4-16.0) gm/dL Hct (34.0-46.0) % Plt Count (150-450) k/uL Glucose 119 H (74-99) mg/dL POC Glucose (mg/dL) 116 H (75-99) mg/dL Microbiology - Last 24 Hours (Table) 07/28/16 11:37 Gram Stain - Preliminary Aspirate Body Fluid Culture - Preliminary 07/28/16 11:37 Anaerobic Culture - Preliminary Gallbladder Fluid Assessment and Plan (1) Acute cholecystitis Narrative/Plan: Stable for discharge. Prescription for pain medicine and antibiotics in the chart. Status: Acute
[2016-07-29] MEDS: SYMBICORT 80-4.5 MCG INHALER INHALATION SCH (10:08)
[2016-07-29 11:40] VITALS: BP 111/51; PULSE 63; TEMP 98.9
[2016-07-29 12:06] LABS: Glucose,Whole Blood 115 mg/dL (75-99)
[2016-07-29] MEDS: METOPROLOL TARTRATE 50 MG TAB PO SCH (12:56)
--- NOTE | 2016-07-29 22:01 | P.PN ---
Subjective This is a 70-year-old female. Her primary care physician is Dr. Harrington. She has a past medical history of atrial fibrillation, mild intermittent asthma, gastroesophageal reflux disease, hypothyroidism with Jing, degenerative disc disease of the lumbar spine and spinal stenosis, borderline diabetic, kidney stones, urinary tract infection, cataract, depression. Patient states that she has had some abdominal pain in the right upper quadrant for couple weeks but was very mild. Yesterday at 7 PM approximately 2 hours after she ate she developed sharp constant abdominal pain to the right upper quadrant along with vomiting. She came into [facility] emergency center with the above area and abdominal ultrasound showed acute cholecystitis. Mild biliary and pancreatic ductal dilatation may be seen in the setting of choledocholelithiasis with distally located stone or due to process involving the pancreatic head. CBC was normal. BUN 23 and creatinine 1.1 with GFR of 49. This appears to be patient's baseline. Blood sugar was 182 red amylase and lipase were normal as well as liver function tests. Urinalysis was cloudy, occasional bacteria, leukoesterase and nitrate negative. Patient was admitted to the MedSur floor and started on Zofran, Dilaudid for pain, IV fluids and consult with Dr. Askew added. He is planning for cholecystectomy for tomorrow. Patient is also started on IV antibiotics in form of ceftriaxone and Flagyl. 07/28; patient did have low-grade fever during the night. Dilaudid had been switched to morphine. She is receiving as scheduled and not getting relief from her abdominal pain which is significantly worse. Toradol added. Patient denies passing any gas. She is scheduled for cholecystectomy today at [address] Askew. She is on IV Zosyn. 07/29: Patient has been tolerating a regular diet with resolution of pain no fever no chills, patient's expected to be discharged today with oral antibiotic , stable and improved Objective - Vital Signs Vital signs: Vital Signs Temp 98.9 F 07/29/16 11:39 Pulse 63 07/29/16 11:39 Resp 16 07/29/16 11:39 BP 111/51 07/29/16 11:39 Pulse Ox 95 07/29/16 11:39 Intake & Output 07/28/16 07/29/16 07/29/16 18:59 06:59 18:59 Intake Total 1251 820 600 Output Total 195 670 30 Balance 1056 150 570 Intake: IV 1251 Intake, IV Titration 820 Amount Lactated Ringers 1,000 ml 820 @ 20 mls/hr IV .Q24H [facility] Rx#:[id number] Oral 600 Output: Drainage 70 30 Right Lateral Abdomen 70 30 Urine 180 600 Estimated Blood Loss 15 Other: Voiding Method Toilet # Voids 1 1 - Constitutional General appearance: Present: cooperative, no acute distress, obese - EENT Eyes: Present: anicteric sclerae, PERRLA, dentition normal, normal appearance ENT: Present: hearing grossly normal, NA/AT, normal oropharynx - Neck Neck: Present: normal ROM. Absent: lymphadenopathy, other, rigidity, stridor, thyromegaly - Respiratory Respiratory: bilateral: CTA - Cardiovascular Rhythm: regular Heart sounds: normal: S1, S2 Abnormal Heart Sounds: Absent: systolic murmur, diastolic murmur, rub, S3 Gallop , S4 Gallop, click, other - Gastrointestinal General gastrointestinal: Present: normal bowel sounds, soft - Integumentary Integumentary: Present: normal, normal turgor - Neurologic Neurologic: Present: CNII-XII intact - Musculoskeletal Musculoskeletal: Present: gait normal, strength equal bilaterally - Psychiatric Psychiatric: Present: A&O x's 3, appropriate affect, intact judgment & insight - Labs CBC & Chem 7: 07/29/16 06:28 07/29/16 06:28 Labs: Abnormal Lab Results - Last 24 Hours (Table) 07/28/16 07/28/16 07/29/16 Range/Units 17:13 20:59 06:28 RBC 3.65 L (3.80-5.40) m/uL Hgb 10.6 L (11.4-16.0) gm/dL Hct 31.4 L (34.0-46.0) % Plt Count 143 L (150-450) k/uL Glucose (74-99) mg/dL POC Glucose (mg/dL) 132 H 197 H (75-99) mg/dL 07/29/16 07/29/16 07/29/16 Range/Units 06:28 07:10 12:00 RBC (3.80-5.40) m/uL Hgb (11.4-16.0) gm/dL Hct (34.0-46.0) % Plt Count (150-450) k/uL Glucose 119 H (74-99) mg/dL POC Glucose (mg/dL) 116 H 115 H (75-99) mg/dL Microbiology - Last 24 Hours (Table) 07/28/16 11:37 Gram Stain - Preliminary Aspirate Body Fluid Culture - Preliminary 07/28/16 11:37 Anaerobic Culture - Preliminary Gallbladder Fluid Assessment and Plan Plan: . Acute abdominal pain with vomiting due to acute cholecystitis. Continue Zofran for nausea, Morphine for pain, Zosyn. Consult with Dr. Askew appreciated. Patient plan for cholecystectomy performed on 07/28/2016. Toradol added. 2. Asthma, mild intermittent. Continue albuterol 4 times daily as needed, Symbicort twice daily. 3. History of paroxysmal atrial fibrillation. Continue digoxin 125 g daily, Lopressor 50 mg twice daily. 4. Hypothyroidism. Continue levothyroxine. 5. Borderline diabetic. Humalog scale. 6. Depression. Continue Prozac and BuSpar. 7. Esophageal reflux disease and gastric intestinal prophylaxis. Continue Protonix. 8. Hyperlipidemia. Continue TriCor. 9. Vitamin D deficiency. Continue supplement. 10. Chronic kidney disease stage III. Monitor kidney function. 11. DVT prophylaxis. Heparin subcu. Discharge today stable and improved
--- NOTE | 2016-08-23 16:09 | P.DS ---
Providers Date of admission: 07/27/16 02:33 Expected date of discharge: 07/29/16 Attending physician: Torrey Jaimes Primary care physician: Rui Harrington [facility] Course: This is a 70-year-old female. Her primary care physician is Dr. Harrington. She has a past medical history of atrial fibrillation, mild intermittent asthma, gastroesophageal reflux disease, hypothyroidism with Jing, degenerative disc disease of the lumbar spine and spinal stenosis, borderline diabetic, kidney stones, urinary tract infection, cataract, depression. Patient states that she has had some abdominal pain in the right upper quadrant for couple weeks but was very mild. Yesterday at 7 PM approximately 2 hours after she ate she developed sharp constant abdominal pain to the right upper quadrant along with vomiting. She came into [facility] emergency center with the above area and abdominal ultrasound showed acute cholecystitis. Mild biliary and pancreatic ductal dilatation may be seen in the setting of choledocholelithiasis with distally located stone or due to process involving the pancreatic head. CBC was normal. BUN 23 and creatinine 1.1 with GFR of 49. This appears to be patient's baseline. Blood sugar was 182 red amylase and lipase were normal as well as liver function tests. Urinalysis was cloudy, occasional bacteria, leukoesterase and nitrate negative. Patient was admitted to the [facility] floor and started on Zofran, Dilaudid for pain, IV fluids and consult with Dr. Askew added. He is planning for cholecystectomy for tomorrow. Patient is also started on IV antibiotics in form of ceftriaxone and Flagyl. 07/28; patient did have low-grade fever during the night. Dilaudid had been switched to morphine. She is receiving as scheduled and not getting relief from her abdominal pain which is significantly worse. Toradol added. Patient denies passing any gas. She is scheduled for cholecystectomy today at [address] Askew. She is on IV Zosyn. 07/29: Patient has been tolerating a regular diet with resolution of pain no fever no chills, patient's expected to be discharged today with oral antibiotic , stable and improved Discharge diagnoses: 1. Acute abdominal pain with vomiting due to acute cholecystitis. 2. Asthma, mild intermittent. 3. History of paroxysmal atrial fibrillation. 4. Hypothyroidism. 5. Borderline diabetic. 6. Depression, recurrent. 7. Esophageal reflux disease 8. Hyperlipidemia. 9. Vitamin D deficiency. 10. Chronic kidney disease stage III. Discharge today stable and improved Impression and plan of care have been directed as dictated by the signing physician. Ananya Pradhan nurse practitioner acting as scribe for signing physician. Patient Condition at Discharge: Good Plan - Discharge Summary New Discharge Prescriptions: Amoxic-Pot Clav 875-125Mg [Augmentin 875-125] 1 tab PO Q12HR #14 tablet Ondansetron HCl [Zofran] 4 mg PO Q6H PRN #14 tablet PRN Reason: Nausea traMADol HCl [Ultram] 50 mg PO Q4H PRN #20 tab PRN Reason: Pain Discharge Medication List Aspirin 81 mg PO HS 11/03/14 [History] Cetirizine HCl [Zyrtec] 10 mg PO DAILY PRN 11/03/14 [History] Cholecalciferol [Vitamin D3] 1,000 unit PO DAILY@0711/03/14 [History] FLUoxetine HCL [PROzac] 20 mg PO DAILY@0711/03/14 [History] Fenofibrate Nanocrystallized [Tricor] 145 mg PO HS 11/03/14 [History] Fluticasone/Salmeterol [Advair 100-50 Diskus] 1 puff INHALATION RT-BID 11/03/14 [History] Metoprolol Tartrate [Lopressor] 50 mg PO BID 11/03/14 [History] Pantoprazole Sodium 40 mg PO DAILY@0611/03/14 [History] Sucralfate [Carafate] 1 gm PO QID PRN 11/03/14 [History] Albuterol Sulfate [Proventil Hfa] 2 puff INHALATION RT-Q6H PRN 07/27/16 [History ] Digoxin [Lanoxin] 125 mcg PO DAILY 07/27/16 [History] Estradiol [Vagifem] 10 mcg VAGINAL Q72H 07/27/16 [History] Levothyroxine Sodium [Synthroid] 112 mcg PO DAILY@0600 07/27/16 [History] busPIRone HCL 15 mg PO DAILY@00 07/27/16 [History] mg Trisilicate/Alh/Nahco3/Aa [Gaviscon 80-14.2 mg Tab Chew] 2 tab PO QID PRN [History] Amoxic-Pot Clav 875-125Mg [Augmentin 875-125] 1 tab PO Q12HR #14 tablet [Rx] traMADol HCl [Ultram] 50 mg PO Q4H PRN #20 tab 07/28/16 [Rx] Ondansetron HCl [Zofran] 4 mg PO Q6H PRN #14 tablet 07/29/16 [Rx] traMADol HCl [Ultram] 50 mg PO QID tab 07/29/16 [Rx] Follow up Appointment(s)/Referral(s): Rui Harrington MD [Primary Care Provider] - 1 Week Viral Askew MD [STAFF PHYSICIAN] - 1 Week Activity/Diet/Wound Care/Special Instructions: No heavy lifting X 1 week. Low fat diet. Hold Aspirin for 5 days. May shower. Last received tramadol at 0900 drink fluids. Call office for any increase in pain not covered by pain meds, fever, chills, increased redness or foul drainage from puncture or old drain site or any concerns. continue to use incentive spirometery at home. Discharge Disposition: HOME SELF-CARE
== END 2016-07-29 14:25 | disposition home or self-care (01) | DRG 419 ==
LOC: EC 23:52 → 6PED 07-27 02:33
PROVIDERS: ADMIT Internal Medicine; ATTEND Internal Medicine
PROC: 0FT44ZZ Resection of Gallbladder, Percutaneous Endoscopic Approach (ICD-10-PCS; principal; 2016-07-28 11:00)
DX: K80.00 Calculus of gallbladder with acute cholecystitis without obstruction (principal); I48.0 Paroxysmal atrial fibrillation; N18.3 Chronic kidney disease, stage 3 (moderate); R93.2 Abnormal findings on diagnostic imaging of liver and biliary tract; D72.829 Elevated white blood cell count, unspecified; K66.0 Peritoneal adhesions (postprocedural) (postinfection); R73.09 Other abnormal glucose; J45.20 Mild intermittent asthma, uncomplicated; H26.9 Unspecified cataract; K21.9 Gastro-esophageal reflux disease without esophagitis; E78.5 Hyperlipidemia, unspecified; R50.9 Fever, unspecified; R11.2 Nausea with vomiting, unspecified; E55.9 Vitamin D deficiency, unspecified; F32.9 Major depressive disorder, single episode, unspecified; E89.0 Postprocedural hypothyroidism; M19.90 Unspecified osteoarthritis, unspecified site; M51.36 Other intervertebral disc degeneration, lumbar region; M48.00 Spinal stenosis, site unspecified; Z96.652 Presence of left artificial knee joint; Z79.82 Long term (current) use of aspirin; Z87.442 Personal history of urinary calculi; Z86.19 Personal history of other infectious and parasitic diseases; Z87.440 Personal history of urinary (tract) infections; Z91.041 Radiographic dye allergy status; Z88.5 Allergy status to narcotic agent; Z88.8 Allergy status to other drugs, medicaments and biological substances; Z91.018 Allergy to other foods; Z86.39 Personal history of other endocrine, nutritional and metabolic disease; Z79.890 Hormone replacement therapy; Z79.51 Long term (current) use of inhaled steroids; Z79.899 Other long term (current) drug therapy; Z84.1 Family history of disorders of kidney and ureter
CPT/HCPCS: 36415; 76705; 80048; 80053; 81001; 82150; 83036; 83690; 83735; 85025; 85027; 87070; 87075; 87077; 87186; 87205; 88304; 94640; 96374; 99285

== ENCOUNTER → 2016-10-31 | Outpatient (CLI) | payer MEDICARE, OTHER ==
--- NOTE | 2016-11-01 11:04 | MM ---
Reason for exam: screening (asymptomatic). Last mammogram was performed 1 year ago. History: Patient is postmenopausal. Family history of breast cancer in paternal aunt at age 40 and breast cancer in maternal aunt at age 60. Benign stereotactic core biopsy of the right breast, 2006. Benign excisional biopsy of the right breast, 1994. Benign excisional biopsy of the right breast, 1990. Physical Findings: A clinical breast exam by your physician is recommended on an annual basis and results should be correlated with mammographic findings. MG 3D Screening Mammo W/Cad Bilateral CC and MLO view(s) were taken. Prior study comparison: October 29, 2015, bilateral MG 3d screening mammo w/cad. October 28, 2014, mammogram, performed at [facility]. The breast tissue is extremely dense which could obscure a lesion on mammography. Finding: There are typically benign round, regional calcifications in the inner quadrant of the right breast. Previous mammotome biopsy in the right breast. There is no discrete abnormality. ASSESSMENT: Benign, BI-RAD 2 RECOMMENDATION: Routine screening mammogram of both breasts in 1 year.
== END | disposition home or self-care (01) ==
LOC: RADMAMWWP 11:13
PROVIDERS: ATTEND Internal Medicine
DX: Z12.31 Encounter for screening mammogram for malignant neoplasm of breast (principal)
CPT/HCPCS: 77063; G0202

== ENCOUNTER → 2016-11-22 | Outpatient (CLI) | payer MEDICARE, OTHER ==
[2016-11-22 08:52] LABS: Calcium 9.7 mg/dL (8.4-10.2); Potassium 4.4 mmol/L (3.5-5.1); Total Bilirubin 0.8 mg/dL (0.2-1.3); Total Protein 7.1 g/dL (6.3-8.2)
[2016-11-22 09:26] LABS: Hemoglobin A1C 6.1 % (4.2-6.1)
[2016-11-22 17:14] LABS: Urine Creatinine 105.4 mg/dL
== END | disposition home or self-care (01) ==
LOC: LABWHC1 08:06
PROVIDERS: ATTEND Internal Medicine Endocrinology, Diabetes & Metabolism
DX: E03.8 Other specified hypothyroidism (principal)
CPT/HCPCS: 36415; 80053; 80061; 82043; 82570; 83036; 84443

== ENCOUNTER → 2017-01-03 | Outpatient (CLI) | payer MEDICARE, OTHER ==
[2017-01-03 10:47] LABS: Appearance,Urine Clear (Clear); Bilirubin,Urine Negative (Negative); Glucose,Urine (UA) Negative (Negative); Ketones,Urine Negative (Negative); Leukocyte Esterase,Urine Negative (Negative); Nitrite,Urine Negative (Negative); Protein,Urine Negative (Negative); Specific Gravity,Urine 1.013 (1.001-1.035); UA Billing (MACRO vs. MICRO) CHEM; Urobilinogen,Urine <2.0 mg/dL (<2.0)
[2017-01-03 10:50] LABS: CH 30.1; CHCM 35.2; HCT 40.1 % (34.0-46.0); HDW 2.69; HGB 13.7 gm/dL (11.4-16.0); MCH 29.4 pg (25.0-35.0); MCHC 34.2 g/dL (31.0-37.0); Mean Platelet Volume 7.8; RBC 4.66 m/uL (3.80-5.40); RDW 13.5 % (11.5-15.5); WBC 5.3 k/uL (3.8-10.6)
[2017-01-03 11:05] LABS: Calcium 9.6 mg/dL (8.4-10.2); Potassium 4.4 mmol/L (3.5-5.1); Total Bilirubin 0.9 mg/dL (0.2-1.3); Total Protein 6.9 g/dL (6.3-8.2)
--- NOTE | 2017-01-03 15:31 | US ---
EXAMINATION TYPE: US kidneys/renal and bladder DATE OF EXAM: 01/03/2017 COMPARISON: ABD Limited US 2017 CLINICAL HISTORY: N18.3 Chronic kidney disease stage 3; Prior renal stones per patient EXAM MEASUREMENTS: Right Kidney: 9.9 x 5.3 x 3.7 cm Left Kidney: 10.7 x 4.5 x 5.3 cm Post Void Residual Volume: 0.1 mL Right Kidney: prominent column of Maxi mid upper pole; parallel hyperechoic lines noted on image #6 400 may represent vascular calcification Left Kidney: couple of hyperechoic foci may represent renal stones with more prominent calcifications with posterior shadowing noted mid pole =0.5 x 0.3 x 0.5cm Bladder: not fully distended Bilateral Jets seen: Yes Normal Post Void Residual: Yes IMPRESSION: 1. Single nonobstructing 5 mm left midpole renal calculus. 2. No evidence of hydronephrosis. 3. Cortical medullary differentiation is maintained, no sonographic evidence of medical renal disease .
== END | disposition home or self-care (01) ==
LOC: RADUSWWP 10:15
PROVIDERS: ATTEND Internal Medicine Endocrinology, Diabetes & Metabolism
DX: N20.0 Calculus of kidney (principal); N18.3 Chronic kidney disease, stage 3 (moderate); E11.22 Type 2 diabetes mellitus with diabetic chronic kidney disease; I12.9 Hypertensive chronic kidney disease with stage 1 through stage 4 chronic kidney disease, or unspecified chronic kidney disease; E03.8 Other specified hypothyroidism; R53.83 Other fatigue
CPT/HCPCS: 76770; 80053; 81003; 84100; 85027

== ENCOUNTER → 2017-03-15 | Outpatient (CLI) | payer MEDICARE, OTHER ==
[2017-03-15 13:58] LABS: CH 30.3; HCT 39.5 % (34.0-46.0); HDW 2.68; HGB 13.7 gm/dL (11.4-16.0); MCH 30.2 pg (25.0-35.0); MCHC 34.6 g/dL (31.0-37.0); MCV 87.1 fL (80.0-100.0); Mean Platelet Volume 7.5; RBC 4.53 m/uL (3.80-5.40); RDW 13.4 % (11.5-15.5); WBC 6.3 k/uL (3.8-10.6)
[2017-03-15 14:23] LABS: Calcium 9.9 mg/dL (8.4-10.2); Phosphorous 3.9 mg/dL (2.5-4.5); Potassium 4.7 mmol/L (3.5-5.1); Total Bilirubin 0.6 mg/dL (0.2-1.3)
[2017-03-15 14:25] LABS: Appearance,Urine Cloudy (Clear); Bacteria,Urine Rare /hpf; Bilirubin,Urine Negative (Negative); Glucose,Urine (UA) Negative (Negative); Ketones,Urine Negative (Negative); Leukocyte Esterase,Urine Large (Negative); Mucus,Urine Few /hpf; Nitrite,Urine Negative (Negative); Particle Count 5246; Protein,Urine Negative (Negative); RBC,Urine 3 /hpf (0-5); Specific Gravity,Urine 1.018 (1.001-1.035); Squamous Epithelial Cell,Urine 21 /hpf (0-4); UA Billing (MACRO vs. MICRO) MICRO; Urobilinogen,Urine <2.0 mg/dL (<2.0); WBC,Urine 19 /hpf (0-5)
== END | disposition home or self-care (01) ==
LOC: LABWHC1 13:26
PROVIDERS: ATTEND Internal Medicine
DX: D64.9 Anemia, unspecified (principal); N39.0 Urinary tract infection, site not specified; E83.39 Other disorders of phosphorus metabolism
CPT/HCPCS: 36415; 80053; 81001; 84100; 85027

== ENCOUNTER → 2017-09-17 | Outpatient (CLI) | payer MEDICARE, OTHER ==
[2017-09-17 10:52] LABS: Albumin 4.3 g/dL (3.5-5.0); Calcium 9.7 mg/dL (8.4-10.2); Potassium 4.4 mmol/L (3.5-5.1); Total Bilirubin 0.8 mg/dL (0.2-1.3); Total Protein 6.8 g/dL (6.3-8.2)
[2017-09-17 18:41] LABS: Hemoglobin A1C 5.7 % (4.0-6.0)
== END | disposition home or self-care (01) ==
LOC: LABWHC1 09:49
PROVIDERS: ATTEND Internal Medicine Endocrinology, Diabetes & Metabolism
DX: E11.9 Type 2 diabetes mellitus without complications (principal)
CPT/HCPCS: 36415; 80053; 80061; 82043; 82570; 83036; 84443

== ENCOUNTER → 2017-10-22 | Outpatient (CLI) | payer MEDICARE, OTHER ==
[2017-10-22 10:01] LABS: MCH 29.5 pg (25.0-35.0); MCV 84.4 fL (80.0-100.0); Mean Platelet Volume 6.6; Platelet Count 235 k/uL (150-450); RBC 4.73 m/uL (3.80-5.40); RDW 12.5 % (11.5-15.5); WBC 5.4 k/uL (3.8-10.6)
[2017-10-22 10:05] LABS: Appearance,Urine Clear (Clear); Bilirubin,Urine Negative (Negative); Blood,Urine Negative (Negative); Color,Urine Yellow; Glucose,Urine (UA) Negative (Negative); Ketones,Urine Negative (Negative); Leukocyte Esterase,Urine Negative (Negative); Nitrite,Urine Negative (Negative); Protein,Urine Negative (Negative); Specific Gravity,Urine 1.013 (1.001-1.035); Urobilinogen,Urine <2.0 mg/dL (<2.0)
[2017-10-22 10:12] LABS: Albumin 4.3 g/dL (3.5-5.0); Calcium 9.6 mg/dL (8.4-10.2); Magnesium 1.7 mg/dL (1.6-2.3); Phosphorus 3.9 mg/dL (2.5-4.5); Potassium 4.5 mmol/L (3.5-5.1); Total Bilirubin 0.5 mg/dL (0.2-1.3); Total Protein 6.5 g/dL (6.3-8.2); Uric Acid 5.3 mg/dL (3.7-7.4)
[2017-10-22 16:17] LABS: Iron Saturation 17.96 (12.00-45.00)
[2017-10-22 16:47] LABS: Parathyroid Hormone Intact 27.2 pg/mL (14.0-72.0)
== END | disposition home or self-care (01) ==
LOC: LABWHC1 09:24
PROVIDERS: ATTEND Internal Medicine
DX: N18.3 Chronic kidney disease, stage 3 (moderate) (principal); D64.9 Anemia, unspecified; N39.0 Urinary tract infection, site not specified; E55.9 Vitamin D deficiency, unspecified; M10.9 Gout, unspecified; N25.81 Secondary hyperparathyroidism of renal origin
CPT/HCPCS: 36415; 80053; 81003; 82570; 82728; 83540; 83550; 83735; 83970; 84100; 84156; 84550; 85027

== ENCOUNTER → 2017-11-06 | Outpatient (CLI) | payer MEDICARE, OTHER | END | disposition home or self-care (01) | LOC: LABWHC1 10:16 | PROVIDERS: ATTEND Orthopaedic Surgery | DX: M17.12 Unilateral primary osteoarthritis, left knee (principal) | CPT/HCPCS: 36415; 85652; 86140 ==

== ENCOUNTER → 2017-11-06 | Outpatient (CLI) | payer MEDICARE, OTHER ==
--- NOTE | 2017-11-07 10:01 | MM ---
Reason for exam: screening (asymptomatic). Last mammogram was performed 1 year ago. History: Patient is postmenopausal. Family history of breast cancer in paternal aunt at age 40 and breast cancer in maternal aunt at age 60. Benign stereotactic core biopsy of the right breast, 2006. Benign excisional biopsy of the right breast, 1994. Benign excisional biopsy of the right breast, 1990. Physical Findings: A clinical breast exam by your physician is recommended on an annual basis and results should be correlated with mammographic findings. MG 3D Screening Mammo W/Cad Bilateral CC and MLO view(s) were taken. Prior study comparison: October 31, 2016, bilateral MG 3d screening mammo w/cad. October 29, 2015, bilateral MG 3d screening mammo w/cad. The breast tissue is heterogeneously dense. This may lower the sensitivity of mammography. There is chronic nodularity in the left breast. No significant changes when compared with prior studies. ASSESSMENT: Benign, BI-RAD 2 RECOMMENDATION: Routine screening mammogram of both breasts in 1 year.
== END | disposition home or self-care (01) ==
LOC: RADMAMWWP 09:49
PROVIDERS: ATTEND Internal Medicine
DX: Z12.31 Encounter for screening mammogram for malignant neoplasm of breast (principal)
CPT/HCPCS: 77063; 77067

== ENCOUNTER 2017-11-29 11:34 | Emergency (ER) | payer MEDICARE, OTHER ==
[2017-11-29 11:39] VITALS: BP 138/81; PULSE 71; RESP 18; TEMP 97.8
[2017-11-29] MEDS ORDERED: SODIUM CHLORIDE 0.9% 1,000 ML IV STA (11:41)
--- NOTE | 2017-11-29 12:06 | ED ---
General Adult HPI - General Chief complaint: Chest Pain Stated complaint: Abnormal Ekg/dizzy Time Seen by Provider: 11/29/17 11:41 Source: patient, RN notes reviewed, old records reviewed Mode of arrival: ambulatory Limitations: no limitations - History of Present Illness Initial comments: This is a 71-year-old female the ER for evaluation of dizziness lightheadedness vertigo type symptoms. Patient has history of A. fib history of heart disease. Patient was seen at urgent care earlier today and sent to ER for evaluation. She denies chest pain is main complaint of dizziness, room spinning. No recent change in medications no nausea vomiting or diarrhea - Related Data Home Medications Medication Instructions Recorded Confirmed Aspirin 81 mg PO HS 11/03/14 11/29/17 Cholecalciferol [Vitamin D3] 5,000 unit PO DAILY 11/03/14 11/29/17 FLUoxetine HCL [PROzac] 20 mg PO DAILY 11/03/14 11/29/17 Fenofibrate Nanocrystallized 145 mg PO HS 11/03/14 11/29/17 [Tricor] Fluticasone/Salmeterol [Advair 1 puff INHALATION RT-BID 11/03/14 11/29/17 100-50 Diskus] Digoxin [Lanoxin] 125 mcg PO Q48H 07/27/16 11/29/17 Estradiol [Vagifem] 10 mcg VAGINAL Q72H 07/27/16 11/29/17 Levothyroxine Sodium [Synthroid] 112 mcg PO MOTUWETHFRSA 07/27/16 11/29/17 busPIRone HCL 15 mg PO DAILY 07/27/16 11/29/17 Glucosamine/Chondr Brooks A Sod [Osteo 1 tab PO DAILY 11/29/17 11/29/17 Bi-Flex Caplet] Ipratropium/Albuterol Sulfate 1 puff INHALATION RT-QID PRN 11/29/17 11/29/17 [Combivent Respimat Inhaler] Magnus Red 500 mg PO DAILY 11/29/17 11/29/17 Metoprolol Succinate [Toprol XL] 50 mg PO BID 11/29/17 11/29/17 traMADol HCl [Ultram] 50 mg PO QID PRN 11/29/17 11/29/17 Allergies Allergy/AdvReac Type Severity Reaction Status Date / Time atorvastatin calcium Allergy Itching Verified 11/29/17 12:15 [From Lipitor] codeine Allergy Nausea Verified 11/29/17 12:15 erythromycin base Allergy Abdominal Verified 11/29/17 12:15 Pain yeast, dried [yeast] Allergy Nausea & Verified 11/29/17 12:15 Vomiting & Diarrhea Iodinated Contrast- Oral and AdvReac KIDNEY Verified 11/29/17 11:40 IV Dye ISSUES [Iodinated Contrast Media - Oral and] morphine AdvReac Nausea Verified 11/29/17 12:15 Review of Systems ROS Statement: Those systems with pertinent positive or pertinent negative responses have been documented in the HPI. ROS Other: All systems not noted in ROS Statement are negative. Past Medical History Past Medical History: Atrial Fibrillation, Asthma, GERD/Reflux, Hyperlipidemia, Thyroid Disorder Additional Past Medical History / Comment(s): lo, back pain DDD SPINAL STENOSIS, BOARDERLINE DIABETIC, KIDNEY STONES, UTI, CATARACT History of Any Multi-Drug Resistant Organisms: None Reported Past Surgical History: Adenoidectomy, Breast Surgery, Section, Orthopedic Surgery, Tonsillectomy Additional Past Surgical History / Comment(s): thyroidectomy, LT KNEE REPLACEMENT(HAD SEVERAL SX ON THAT KNEE, 1 ST ONE HAD A TORN MENISCUS HAD SX THEN GOT INFECTION /SEPTIC HAD TO REOPEN IT. THEN 20 YEARS LATER HAD A TOTAL KNEE REPLACEMENT.MILES CARPAL TUNNEL, CKC, 3 RT BREAST LUMPS REMOVED ALL BENIGN, STERO BIOPSY FOR SUSPICIUS CALCIFICATION BUT CAME BACK BENIGN, Past Anesthesia/Blood Transfusion Reactions: Motion Sickness Additional Past Anesthesia/Blood Transfusion Reaction / Comment(s): Anesthesia- depends on what they give her. Past Psychological History: Depression Smoking Status: Never smoker Past Alcohol Use History: Occasional Past Drug Use History: None Reported - Past Family History Daughter(s) Additional Family Medical History / Comment(s): Malcolm has 2 children with no major medical problems. Father Additional Family Medical History / Comment(s): PARONIOD SCHITZ, HX TB. COMMITTED SUICIDE. Mother Additional Family Medical History / Comment(s): Mother at age 86 with history of hyperlipidemia. She had leg infection that became septic and she from this and acute kidney injury. General Exam Limitations: no limitations General appearance: alert, in no apparent distress Head exam: Present: atraumatic, normocephalic, normal inspection Eye exam: Present: normal appearance, PERRL, EOMI. Absent: scleral icterus, conjunctival injection, periorbital swelling ENT exam: Present: normal exam, mucous membranes moist Neck exam: Present: normal inspection. Absent: tenderness, meningismus, lymphadenopathy Respiratory exam: Present: normal lung sounds bilaterally. Absent: respiratory distress, wheezes, rales, rhonchi, stridor Cardiovascular Exam: Present: regular rate, normal rhythm, normal heart sounds. Absent: systolic murmur, diastolic murmur, rubs, gallop, clicks GI/Abdominal exam: Present: soft, normal bowel sounds. Absent: distended, tenderness, guarding, rebound, rigid Extremities exam: Present: normal inspection, full ROM, normal capillary refill. Absent: tenderness, pedal edema, joint swelling, calf tenderness Back exam: Present: normal inspection Neurological exam: Present: alert, oriented X3, CN II-XII intact Psychiatric exam: Present: normal affect, normal mood Skin exam: Present: warm, dry, intact, normal color. Absent: rash Course Vital Signs 11/29/17 11:37 Temperature 97.8 F Pulse Rate 71 Respiratory 18 Rate Blood Pressure 138/81 O2 Sat by Pulse 99 Oximetry - Reevaluation(s) Reevaluation #1: 11/29/17 12:06 corroborates the patient does seem to walk staggered Reevaluation #2: 11/29/17 14:35 Patient is able to ambulate without difficulty EKG Findings - EKG Comments: EKG Findings:: EKG shows sinus rhythm rate of 66, ID [id number], QRS 76, QTc 4:15, anterior T-wave inversion Medical Decision Making - Medical Decision Making 71 female the ER for evaluation of vertiginous symptoms, CT negative, patient does not have abnormal EKG EKG is normal. She also has prior heart catheterization which is completely clean. Patient can be discharged home - Lab Data Result diagrams: 11/29/17 12:06 11/29/17 12:06 Lab Results 11/29/17 11/29/17 11/29/17 Range/Units 12:06 12:06 12:06 WBC 5.3 (3.8-10.6) k/uL RBC 4.80 (3.80-5.40) m/uL Hgb 14.0 (11.4-16.0) gm/dL Hct 40.5 (34.0-46.0) % MCV 84.3 (80.0-100.0) fL MCH 29.3 (25.0-35.0) pg MCHC 34.7 (31.0-37.0) g/dL RDW 12.7 (11.5-15.5) % Plt Count 218 (150-450) k/uL Neutrophils % 56 % Lymphocytes % 33 % Monocytes % 5 % Eosinophils % 3 % Basophils % 1 % Neutrophils # 3.0 (1.3-7.7) k/uL Lymphocytes # 1.8 (1.0-4.8) k/uL Monocytes # 0.3 (0-1.0) k/uL Eosinophils # 0.2 (0-0.7) k/uL Basophils # 0.0 (0-0.2) k/uL PT (9.0-12.0) sec INR (<1.2) APTT (22.0-30.0) sec Sodium 142 (137-145) mmol/L Potassium 4.7 (3.5-5.1) mmol/L Chloride 104 (98-107) mmol/L Carbon Dioxide 25 (22-30) mmol/L Anion Gap 13 mmol/L BUN 17 (7-17) mg/dL Creatinine 1.17 H (0.52-1.04) mg/dL Est GFR (CKD-EPI)AfAm 55 (>60 ml/min/1.73 sqM) Est GFR (CKD-EPI)NonAf 48 (>60 ml/min/1.73 sqM) Glucose 99 (74-99) mg/dL Calcium 9.6 (8.4-10.2) mg/dL Magnesium 1.8 (1.6-2.3) mg/dL Total Bilirubin 0.7 (0.2-1.3) mg/dL AST 28 (14-36) U/L ALT 40 (9-52) U/L Alkaline Phosphatase 50 (38-126) U/L Total Creatine Kinase 45 (30-135) U/L CK-MB (CK-2) 0.3 (0.0-2.4) ng/mL CK-MB (CK-2) Rel Index 0.7 Troponin I <0.012 (0.000-0.034) ng/mL NT-Pro-B Natriuret Pep pg/mL Total Protein 6.7 (6.3-8.2) g/dL Albumin 4.4 (3.5-5.0) g/dL Lipase 61 (23-300) U/L 11/29/17 11/29/17 Range/Units 12:06 12:06 WBC (3.8-10.6) k/uL RBC (3.80-5.40) m/uL Hgb (11.4-16.0) gm/dL Hct (34.0-46.0) % MCV (80.0-100.0) fL MCH (25.0-35.0) pg MCHC (31.0-37.0) g/dL RDW (11.5-15.5) % Plt Count (150-450) k/uL Neutrophils % % Lymphocytes % % Monocytes % % Eosinophils % % Basophils % % Neutrophils # (1.3-7.7) k/uL Lymphocytes # (1.0-4.8) k/uL Monocytes # (0-1.0) k/uL Eosinophils # (0-0.7) k/uL Basophils # (0-0.2) k/uL PT 10.8 (9.0-12.0) sec INR 1.1 (<1.2) APTT 25.0 (22.0-30.0) sec Sodium (137-145) mmol/L Potassium (3.5-5.1) mmol/L Chloride (98-107) mmol/L Carbon Dioxide (22-30) mmol/L Anion Gap mmol/L BUN (7-17) mg/dL Creatinine (0.52-1.04) mg/dL Est GFR (CKD-EPI)AfAm (>60 ml/min/1.73 sqM) Est GFR (CKD-EPI)NonAf (>60 ml/min/1.73 sqM) Glucose (74-99) mg/dL Calcium (8.4-10.2) mg/dL Magnesium (1.6-2.3) mg/dL Total Bilirubin (0.2-1.3) mg/dL AST (14-36) U/L ALT (9-52) U/L Alkaline Phosphatase (38-126) U/L Total Creatine Kinase (30-135) U/L CK-MB (CK-2) (0.0-2.4) ng/mL CK-MB (CK-2) Rel Index Troponin I (0.000-0.034) ng/mL NT-Pro-B Natriuret Pep 69 pg/mL Total Protein (6.3-8.2) g/dL Albumin (3.5-5.0) g/dL Lipase (23-300) U/L - Radiology Data Radiology results: report reviewed (CT brain chest x-ray are negative), image reviewed Disposition Clinical Impression: BPPV (benign paroxysmal positional vertigo) Disposition: HOME SELF-CARE Condition: Good Instructions: Vertigo (ED), Benign Paroxysmal Positional Vertigo (ED) Is patient prescribed a controlled substance at d/c from ED?: No Referrals: Rui Harrington MD [Primary Care Provider] - 1-2 days
[2017-11-29] MEDS ORDERED: FAMOTIDINE 20 MG/2 ML VIAL IV STA (12:21)
[2017-11-29] MEDS ORDERED: methylPREDNISolone SOD SUCCI 125 MG/2 ML VIAL IV STA (12:21)
[2017-11-29] MEDS ORDERED: diphenhydrAMINE 50 MG/ML 1 ML VIAL IVP STA (12:21)
[2017-11-29 12:33] LABS: Basophils % (A) 1 %; Eosinophils # (A) 0.2 k/uL (0-0.7); Eosinophils % (A) 3 %; HCT 40.5 % (34.0-46.0); Lymphocytes # (A) 1.8 k/uL (1.0-4.8); Lymphocytes % (A) 33 %; MCH 29.3 pg (25.0-35.0); MCHC 34.7 g/dL (31.0-37.0); MCV 84.3 fL (80.0-100.0); Mean Platelet Volume 6.6; Monocytes # (A) 0.3 k/uL (0-1.0); Monocytes % (A) 5 %; Neutrophils % (A) 56 %; Platelet Count 218 k/uL (150-450); RDW 12.7 % (11.5-15.5); WBC 5.3 k/uL (3.8-10.6)
[2017-11-29 12:41] LABS: INR 1.1 (<1.2); Prothrombin Time 10.8 sec (9.0-12.0)
[2017-11-29 12:42] LABS: Albumin 4.4 g/dL (3.5-5.0); Calcium 9.6 mg/dL (8.4-10.2); Magnesium 1.8 mg/dL (1.6-2.3); Potassium 4.7 mmol/L (3.5-5.1); Total Bilirubin 0.7 mg/dL (0.2-1.3); Total Protein 6.7 g/dL (6.3-8.2)
[2017-11-29 12:56] LABS: Creatine Kinase 45 U/L (30-135)
[2017-11-29 13:09] LABS: Creatine Kinase MB 0.3 ng/mL (0.0-2.4); Troponin I <0.012 ng/mL (0.000-0.034)
--- NOTE | 2017-11-29 13:12 | CT ---
EXAMINATION TYPE: CT brain wo con DATE OF EXAM: 11/29/2017 COMPARISON: NONE HISTORY: 71-year-old female Dizziness TECHNIQUE: Examination was done in axial plane without intravenous contrast. Coronal and sagittal r econstructions performed. CT DLP: 1088 mGycm Automated exposure control for dose reduction was used. FINDINGS: There is no evidence of acute intracranial hemorrhage, acute ischemic changes, mass, mass-effect, or extra-axial fluid collection. There is no effacement of cerebral sulci or basal subarachnoid cister ns. There is no hydrocephalus. There is no midline shift. Perez-white matter distinction is preserv ed. Benign basal ganglia calcifications asymmetrically on the right. 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 Lobulated partial opacificat ion with extensive associated calcifications. Mastoid air cells well pneumatized. Orbits and globes i ntact. Normal variant hyperostosis frontalis interna. IMPRESSION: 1. No acute intracranial abnormality seen. 2. Long-standing left maxillary sinus disease. Given the associated calcifications, correlate to excl ude superimposed aspergillus infection. Consider outpatient ENT referral.
--- NOTE | 2017-11-29 13:23 | XR ---
EXAMINATION TYPE: XR chest 2V DATE OF EXAM: 11/29/2017 COMPARISON: Prior chest x-ray 11/03/2014 HISTORY: Chest pain, cough and congestion TECHNIQUE: Frontal and lateral views of the chest are obtained. FINDINGS: There is no focal air space opacity, pleural effusion, or pneumothorax seen. The cardiac silhouette size is stable. The osseous structures are intact. There are overlying cardiac leads. IMPRESSION: No acute cardiopulmonary process.
== END 2017-11-29 14:48 | disposition home or self-care (01) ==
LOC: EC 11:34
DX: H81.10 Benign paroxysmal vertigo, unspecified ear (principal); R07.9 Chest pain, unspecified; I48.91 Unspecified atrial fibrillation; J45.909 Unspecified asthma, uncomplicated; K21.9 Gastro-esophageal reflux disease without esophagitis; E78.5 Hyperlipidemia, unspecified; E07.9 Disorder of thyroid, unspecified; F32.9 Major depressive disorder, single episode, unspecified; Z96.652 Presence of left artificial knee joint; Z79.82 Long term (current) use of aspirin; Z79.51 Long term (current) use of inhaled steroids; Z79.890 Hormone replacement therapy; Z79.899 Other long term (current) drug therapy; Z88.8 Allergy status to other drugs, medicaments and biological substances; Z88.5 Allergy status to narcotic agent; Z88.1 Allergy status to other antibiotic agents; Z91.048 Other nonmedicinal substance allergy status; Z91.041 Radiographic dye allergy status; Z95.818 Presence of other cardiac implants and grafts; Z53.8 Procedure and treatment not carried out for other reasons
CPT/HCPCS: 36415; 93005; 83880; 80053; 82550; 82553; 83690; 83735; 84484; 85025; 85610; 85730; 71046; 70450; 99285; 96374; 96361 ×2; J2930

== ENCOUNTER → 2018-03-18 | Outpatient (CLI) | payer MEDICARE, OTHER ==
--- NOTE | 2018-03-18 19:07 | BD ---
EXAMINATION TYPE: Axial Bone Density DATE OF EXAM: 03/18/2018 COMPARISON: NONE CLINICAL HISTORY: 72-year-old female postmenopausal screening for osteoporosis Height: 64 Weight: 180.8 FRAX RISK QUESTIONS: Alcohol (3 or more units per day): no Family History (Parent hip fracture): no Glucocorticoids (More than 3mos): no (Ex: prednisone, prednisolone, methylprednisolone, dexamethasone, and hydrocortisone). History of Fracture in Adulthood: yes Secondary Osteoporosis: 1. Type 1 Diabetes: no 2. Hyperthyroidism: no 3. Menopause before 45: yes 4. Malnutrition: no 5. Chronic liver disease: no Rheumatoid Arthritis: no Current Tobacco Use: no RISK FACTORS HISTORY OF: History of Wrist Fracture: right When: 2005 Surgery to Spine/Hip(right/left)/Wrist (right/left): right When: 2006 Family History of Osteoporosis: no Active: sometimes Diet low in dairy products/other sources of calcium: no Postmenopausal woman: around age 42 Lost more than 2 inches in height since high school: no Adrenal Insufficiency: stage 3 kidney disease MEDICATIONS: buspirone, tricor, advair, combivent, tramadol, metoprolol, lanoxin, prozac, vagifem Thyroid Medications: synthroid How Lon years Additional History: EXAM MEASUREMENTS: Bone mineral densitometry was performed using the [employer] System. Bone mineral density as measured about the Lumbar spine is: ----- L1-L4(G/cm2): 1.168 T Score Values are as follows: ----- L2: -0.1 ----- L3: -0.3 ----- L4: 0.4 ----- L1-L4: -0.1 Bone mineral density : baseline Bone mineral density about the R hip (g/cm2): 0.806 Bone mineral density about the L hip (g/cm2): 0.769 T Score values are as follows: -----R Neck: -1.7 -----L Neck: -1.9 -----R Total: -1.4 -----L Total: -1.4 Bone mineral density : baseline IMPRESSION: Osteopenia (T Score between -2.5 and -1). There is slightly increased risk of fracture and the patient may be considered for treatment. Re-Screen 2-5 years. NOTE: T-SCORE=SD OF THE YOUNG ADULT MEAN.
== END ==
LOC: RADBDWWP 08:56
PROVIDERS: ATTEND Internal Medicine
DX: M85.80 Other specified disorders of bone density and structure, unspecified site (principal)
CPT/HCPCS: 77080

== ENCOUNTER → 2018-03-18 | Outpatient (CLI) | payer MEDICARE, OTHER ==
[2018-03-18 11:14] LABS: Albumin 4.1 g/dL (3.5-5.0); Calcium 9.7 mg/dL (8.4-10.2); Potassium 5.2 mmol/L (3.5-5.1); Total Bilirubin 0.5 mg/dL (0.2-1.3); Total Protein 6.7 g/dL (6.3-8.2)
[2018-03-18 20:02] LABS: Hemoglobin A1C 5.6 % (4.0-6.0)
== END | disposition home or self-care (01) ==
LOC: LABWHC1 09:01
PROVIDERS: ATTEND Internal Medicine Endocrinology, Diabetes & Metabolism
DX: E11.9 Type 2 diabetes mellitus without complications (principal); E03.8 Other specified hypothyroidism
CPT/HCPCS: 36415; 80053; 80061; 83036; 84443

== ENCOUNTER → 2018-04-03 | Outpatient (CLI) | payer MEDICARE, OTHER ==
--- NOTE | 2018-04-03 12:13 | CT ---
EXAMINATION TYPE: CT sinus wo con DATE OF EXAM: 04/03/2018 COMPARISON: None HISTORY: Right sided facial pain and pressure CT DLP: 581.4 mGycm. Automated Exposure Control for Dose Reduction was Utilized. TECHNIQUE: CT scan of the sinuses is performed without contrast, axial images are obtained, coronal r eformatted images are also reviewed. FINDINGS: Severe mucosal thickening involving the left maxillary sinus with near-complete opacificati on. Hyperdensity within the soft tissues suggests possible hemorrhagic changes or high proteinaceous secretions. Less likely consider fungal disease. New sentence ostomy oh complex patent bilaterally. N cb septal deviation noted. Nasopharynx and oropharynx are symmetric. Hyperostosis of the calvarium. Small amount of soft tissue attenuation in the right sphenoid sinus. Visualized portion of mastoid air cells show no abnormal opacification. The globes are intact bilate rally. IMPRESSION: 1. Severe left maxillary sinusitis, however, the ostiomeatal complex is patent bilaterally.
== END ==
LOC: RADCTMAIN 11:43
PROVIDERS: ATTEND Otolaryngology
DX: J32.0 Chronic maxillary sinusitis (principal)
CPT/HCPCS: 70486

== ENCOUNTER → 2018-09-18 | Outpatient (CLI) | payer MEDICARE, OTHER ==
[2018-09-18 17:56] LABS: Albumin 4.4 g/dL (3.80-4.90); Albumin/Globulin Ratio 2.75 (1.60-3.17); Calcium 9.5 mg/dL (8.7-10.3); Globulin 1.6 g/dL (1.6-3.3); LDL Cholesterol,Calculated 65.6 mg/dL (0.0-131.0); Potassium 4.5 mmol/L (3.5-5.5); VLDL Calculation 56.4 mg/dL (5.00-40.00)
[2018-09-18 19:34] LABS: Hemoglobin A1C 5.8 % (4.0-6.0)
== END | disposition home or self-care (01) ==
LOC: LABWHC1 09:41
PROVIDERS: ATTEND Internal Medicine Endocrinology, Diabetes & Metabolism
DX: E11.9 Type 2 diabetes mellitus without complications (principal); E03.8 Other specified hypothyroidism
CPT/HCPCS: 36415; 80053; 80061; 82043; 82570; 83036; 84443

== ENCOUNTER → 2018-10-23 | Outpatient (CLI) | payer MEDICARE, OTHER ==
[2018-10-23 15:02] LABS: Appearance,Urine Clear (Clear); Bilirubin,Urine Negative (Negative); Blood,Urine Trace (Negative); Color,Urine Yellow; Glucose,Urine (UA) Negative (Negative); Ketones,Urine Negative (Negative); Leukocyte Esterase,Urine Negative (Negative); Mucus,Urine Rare /hpf; Nitrite,Urine Negative (Negative); Protein,Urine Negative (Negative); RBC,Urine 1 /hpf (0-5); Specific Gravity,Urine 1.021 (1.001-1.035); Squamous Epithelial Cell,Urine 5 /hpf (0-4); Urobilinogen,Urine <2.0 mg/dL (<2.0); WBC,Urine 2 /hpf (0-5)
[2018-10-23 15:03] LABS: HCT 40.3 % (34.0-46.0); HGB 13.5 gm/dL (11.4-16.0); MCH 28.5 pg (25.0-35.0); MCHC 33.5 g/dL (31.0-37.0); Platelet Count 180 k/uL (150-450); RBC 4.74 m/uL (3.80-5.40); RDW 13.5 % (11.5-15.5); WBC 5.7 k/uL (3.8-10.6)
[2018-10-23 19:39] LABS: Parathyroid Hormone Intact 28.8 pg/mL (14.0-72.0)
[2018-10-23 20:14] LABS: Iron Saturation 22.15 (12.00-45.00)
[2018-10-23 20:23] LABS: Vitamin D 25 Hydroxy 46.6 ng/mL (30.0-100.0)
[2018-10-23 20:33] LABS: Albumin 4.4 g/dL (3.80-4.90); Albumin/Globulin Ratio 2.44 (1.60-3.17); Calcium 9.5 mg/dL (8.7-10.3); Globulin 1.8 g/dL (1.6-3.3); Magnesium 1.8 mg/dL (1.5-2.4); Phosphorus 4.5 mg/dL (2.4-5.1); Potassium 4.6 mmol/L (3.5-5.5); Total Protein 6.2 g/dL (6.2-8.2); Uric Acid 6.8 mg/dL (2.9-7.7)
[2018-10-24 00:37] LABS: Total Protein,Urine Random 7.5 mg/dL (0.0-13.5)
== END | disposition home or self-care (01) ==
LOC: LABWHC1 13:39
PROVIDERS: ATTEND Nurse Practitioner Family
DX: N18.3 Chronic kidney disease, stage 3 (moderate) (principal); D63.1 Anemia in chronic kidney disease; N39.0 Urinary tract infection, site not specified; R80.9 Proteinuria, unspecified; E21.3 Hyperparathyroidism, unspecified; E55.9 Vitamin D deficiency, unspecified; M10.9 Gout, unspecified
CPT/HCPCS: 36415; 80053; 81001; 82306; 82570; 82728; 83540; 83550; 83735; 83970; 84100; 84156; 84550; 85027; 87086

== ENCOUNTER → 2019-01-07 | Outpatient (CLI) | payer MEDICARE, OTHER ==
[2019-01-07 16:10] LABS: African American GFR (CKD) 65.6 (60.0-200.0); Albumin 4.2 g/dL (3.80-4.90); Albumin/Globulin Ratio 2.47 (1.60-3.17); Anion Gap 9.2 mmol/L (4.00-12.00); Calcium 9.2 mg/dL (8.7-10.3); Carbon Dioxide 26.8 mmol/L (21.6-31.8); Globulin 1.7 g/dL (1.6-3.3); LDL Cholesterol,Calculated 75.2 mg/dL (0.0-131.0); Potassium 4.5 mmol/L (3.5-5.5); Total Bilirubin 0.9 mg/dL (0.2-1.2); Total Protein 5.9 g/dL (6.2-8.2); VLDL Calculation 43.8 mg/dL (5.00-40.00)
[2019-01-07 16:12] LABS: Hemoglobin A1C 6.1 % (4.0-6.0)
== END | disposition home or self-care (01) ==
LOC: LABWHC1 10:29
PROVIDERS: ATTEND Internal Medicine Endocrinology, Diabetes & Metabolism
DX: E11.9 Type 2 diabetes mellitus without complications (principal); E03.8 Other specified hypothyroidism
CPT/HCPCS: 36415; 80053; 80061; 82043; 82570; 83036; 84439; 84443

== ENCOUNTER 2019-02-09 10:40 | Observation (INO) | payer MEDICARE, OTHER ==
[2019-02-09] MEDS ORDERED: SODIUM CHLORIDE 0.9% 1,000 ML IV STA ×2 (10:49→11:40)
[2019-02-09] MEDS ORDERED: HYDROmorphone 0.5 MG/0.5 ML SYRINGE IVP STA (10:49)
[2019-02-09] MEDS ORDERED: ONDANSETRON 4 MG/2 ML VIAL IVP STA (10:49)
[2019-02-09 11:10] LABS: Albumin 4.4 g/dL (3.5-5.0); Calcium 9.3 mg/dL (8.4-10.2); Potassium 3.9 mmol/L (3.5-5.1); Total Bilirubin 0.9 mg/dL (0.2-1.3); Total Protein 6.9 g/dL (6.3-8.2)
[2019-02-09 11:11] LABS: Basophils # (A) 0.1 k/uL (0-0.2); Basophils % (A) 1 %; Eosinophils # (A) 0.2 k/uL (0-0.7); Eosinophils % (A) 3 %; HCT 40.9 % (34.0-46.0); HGB 14.4 gm/dL (11.4-16.0); Lymphocytes % (A) 30 %; MCH 29.2 pg (25.0-35.0); MCHC 35.2 g/dL (31.0-37.0); MCV 83.2 fL (80.0-100.0); Mean Platelet Volume 7.1; Monocytes # (A) 0.3 k/uL (0-1.0); Monocytes % (A) 4 %; Neutrophils # (A) 3.9 k/uL (1.3-7.7); Neutrophils % (A) 59 %; Platelet Count 237 k/uL (150-450); RBC 4.92 m/uL (3.80-5.40); RDW 15.8 % (11.5-15.5); WBC 6.6 k/uL (3.8-10.6)
--- NOTE | 2019-02-09 11:35 | CT ---
EXAMINATION TYPE: CT abdomen pelvis wo con DATE OF EXAM: 02/09/2019 COMPARISON: Renal ultrasound dated 01/03/2017 HISTORY: Left hip pain radiating into the LLQ and groin for 4 days; Hx of UTI and Kidney stones CT DLP: 687.2 mGycm Automated exposure control for dose reduction was used. TECHNIQUE: Helical acquisition of images was performed from the lung bases through the pelvis. FINDINGS: LUNG BASES: Lipomatous lesion is seen surrounding the suprahepatic inferior vena cava mass effect on the inferior vena cava. LIVER/GB: Hepatic parenchyma is diffusely hypoattenuated in comparison to that of the spleen, most co mmonly seen in hepatic steatosis. This finding limits evaluation for hepatic masses. Geographic areas of hyperattenuation likely relate to areas of focal fatty sparing throughout the liver. No intrahepa tic biliary ductal dilatation. Gallbladder is surgically absent. PANCREAS: Atrophy of the pancreatic head and uncinate process are noted. No ductal dilatation of the unenhanced pancreas. Ill-defined fat plane between the descending duodenum and pancreatic head. SPLEEN: No significant abnormality is seen. ADRENALS: No significant abnormality is seen. KIDNEYS: No hydronephrosis nor nephrolithiasis of either kidney. FREE AIR: No free air is visualized ADENOPATHY: No greater than 1 cm short axis lymph node in the abdomen or pelvis. OSSEOUS STRUCTURES: Moderate multilevel degenerative disc disease of the visualized thoracolumbar sp ine. BOWEL: Short segment narrowing of the redundant sigmoid colon is seen on image 59. Moderate degree c olonic fecal stasis is noted throughout. Appendix is not clearly delineated however no focal right lo wer quadrant fat stranding changes are seen. OTHER: Moderate atherosclerosis of the abdominal aorta and its branches. IMPRESSION: 1. No hydronephrosis or nephrolithiasis of either kidney. No calculi in the urinary bladder or visual ized proximal urethra. 2. 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 Correlate with serum amylase and lipase. 3. At least moderate grade hepatic steatosis with geographic areas of relative hyperattenuation sugge sting multifocal fatty sparing that could be confirmed with nonemergent three-phase CT abdomen or MRI . 4. Focal narrowing of the sigmoid colon in a short segment. This may represent nonobstructing colonic spasm however correlation with any recent colonoscopy would be recommended.
[2019-02-09] MEDS ORDERED: SODIUM CHLORIDE 0.9% 1,000 ML IV ONE (11:41)
[2019-02-09] MEDS ORDERED: SODIUM CHLORIDE 0.9% 500 ML 500 ML IV ONE (11:41)
--- NOTE | 2019-02-09 11:43 | ED ---
Abdominal Pain HPI - General Chief Complaint: Abdominal Pain Stated Complaint: Stomach pain Time Seen by Provider: 02/09/19 10:42 Source: patient, EMS, RN notes reviewed Mode of arrival: EMS Limitations: no limitations - History of Present Illness Initial Comments: 73-year-old female presents emergency Department chief complaint of left-sided abdominal pain. Patient states 4 days ago she was outside doing some work and states that she normally gets a sore back but states that she started having discomfort and which she stopped. Patient states that she developed worsening pain in her abdomen that she follow-up with her PCP who is referred her to her surgeon. Patient states that she did have a bowel movement with days ago but nothing recent. Denies any melena or hematochezia and no hematemesis copremesis no dysuria or hematuria. Patient does have a history kidney stones but states this feels much different. Patient states that this morning the pain became so intense that she currently comfortable. Patient states that she's never had a nything like this in the past. She reports no fevers or chills. - Related Data Home Medications Medication Instructions Recorded Confirmed Aspirin 81 mg PO HS 11/03/14 02/09/19 Cholecalciferol [Vitamin D3 (25 5,000 unit PO DAILY 11/03/14 02/09/19 Mcg = 1000 Iu)] FLUoxetine HCL [PROzac] 20 mg PO DAILY 11/03/14 02/09/19 Fluticasone/Salmeterol [Advair 1 puff INHALATION RT-BID 11/03/14 02/09/19 100-50 Diskus] Digoxin [Lanoxin] 125 mcg PO Q48H 07/27/16 02/09/19 Estradiol [Vagifem] 10 mcg VAGINAL Q72H 07/27/16 02/09/19 Levothyroxine Sodium [Synthroid] 112 mcg PO MOTUWETHFRSA 07/27/16 02/09/19 busPIRone HCL 15 mg PO DAILY 07/27/16 02/09/19 Ipratropium/Albuterol Sulfate 1 puff INHALATION RT-QID PRN 11/29/17 02/09/19 [Combivent Respimat Inhaler] Magnus Red 500 mg PO DAILY 11/29/17 02/09/19 Metoprolol Succinate [Toprol XL] 50 mg PO BID 11/29/17 02/09/19 Famotidine [Pepcid] 20 mg PO BID 02/09/19 02/09/19 Mag/Aluminum/Sod Bicarb/Alginc 1 tab PO DAILY PRN 02/09/19 02/09/19 [Gaviscon 80-14.2 mg Tab Chew] Metoprolol Succinate (ER) [Toprol 25 mg PO BID 02/09/19 02/09/19 Xl] Pravastatin Sodium [Pravachol] 20 mg PO HS 02/09/19 02/09/19 Allergies Allergy/AdvReac Type Severity Reaction Status Date / Time atorvastatin calcium Allergy Itching Verified 02/09/19 11:04 [From Lipitor] codeine Allergy Nausea Verified 02/09/19 11:04 erythromycin base Allergy Abdominal Verified 02/09/19 11:04 Pain yeast, dried [yeast] Allergy Nausea & Verified 02/09/19 11:04 Vomiting & Diarrhea Iodinated Contrast- Oral and AdvReac KIDNEY Verified 02/09/19 11:04 IV Dye ISSUES [Iodinated Contrast Media - Oral and] morphine AdvReac Nausea Verified 02/09/19 11:04 Review of Systems ROS Statement: Those systems with pertinent positive or pertinent negative responses have been documented in the HPI. ROS Other: All systems not noted in ROS Statement are negative. Past Medical History Past Medical History: Atrial Fibrillation, Asthma, GERD/Reflux, Hyperlipidemia, Thyroid Disorder Additional Past Medical History / Comment(s): lo, back pain DDD SPINAL STENOSIS, BOARDERLINE DIABETIC, KIDNEY STONES, UTI, CATARACT History of Any Multi-Drug Resistant Organisms: None Reported Past Surgical History: Adenoidectomy, Breast Surgery, Section, Orthopedic Surgery, Tonsillectomy Additional Past Surgical History / Comment(s): thyroidectomy, LT KNEE REPLACEMENT(HAD SEVERAL SX ON THAT KNEE, 1 ST ONE HAD A TORN MENISCUS HAD SX T [facility]EN GOT INFECTION /SEPTIC HAD TO REOPEN IT. THEN 20 YEARS LATER HAD A TOTAL KNEE REPLACEMENT.MILES CARPAL TUNNEL, CKC, 3 RT BREAST LUMPS REMOVED ALL BENIGN, STERO BIOPSY FOR SUSPICIUS CALCIFICATION BUT CAME BACK BENIGN, Past Anesthesia/Blood Transfusion Reactions: Motion Sickness Additional Past Anesthesia/Blood Transfusion Reaction / Comment(s): Anesthesia- depends on what they give her. Past Psychological History: Depression Smoking Status: Never smoker Past Alcohol Use History: Occasional Past Drug Use History: None Reported - Past Family History Daughter(s) Additional Family Medical History / Comment(s): Chin has 2 children with no major medical problems. Father Additional Family Medical History / Comment(s): PARONIOD SCHITZ, HX TB. COMMITTED SUICIDE. Mother Additional Family Medical History / Comment(s): Mother at age 86 with history of hyperlipidemia. She had leg infection that became septic and she from this and acute kidney injury. General Exam Limitations: no limitations General appearance: alert, in no apparent distress Head exam: Present: atraumatic, normocephalic, normal inspection Eye exam: Present: normal appearance, PERRL, EOMI. Absent: scleral icterus, conjunctival injection, periorbital swelling ENT exam: Present: normal exam, normal oropharynx, mucous membranes moist Neck exam: Present: normal inspection. Absent: tenderness, meningismus, lymphadenopathy Respiratory exam: Present: normal lung sounds bilaterally. Absent: respiratory distress, wheezes, rales, rhonchi, stridor Cardiovascular Exam: Present: regular rate, normal rhythm, normal heart sounds. Absent: systolic murmur, diastolic murmur, rubs, gallop, clicks GI/Abdominal exam: Present: soft, tenderness (Minimal left-sided), normal bowel sounds. Absent: distended, guarding, rebound, rigid Back exam: Absent: CVA tenderness (R), CVA tenderness (L) Neurological exam: Present: alert Skin exam: Present: warm, dry, intact, normal color. Absent: rash Course Vital Signs 02/09/19 02/09/19 10:49 12:30 Temperature 98.7 F 97.7 F Pulse Rate 80 71 Respiratory 20 18 Rate Blood Pressure 132/64 122/58 O2 Sat by Pulse 98 95 Oximetry Medical Decision Making - Medical Decision Making 73-year-old female presented from for abdominal pain. Patient's lactic acid is elevated at 5.8, there is no signs of infection no signs of sepsis. Patient had CT which shows some nonspecific changes. Case discussed with Dr. Jaimes who will admit the patient repeat lactic IV hydrate and reevaluate - Lab Data Result diagrams: 02/09/19 10:45 02/09/19 10:45 Lab Results 02/09/19 02/09/19 02/09/19 Range/Units 10:45 10:45 10:45 WBC 6.6 (3.8-10.6) k/uL RBC 4.92 (3.80-5.40) m/uL Hgb 14.4 (11.4-16.0) gm/dL Hct 40.9 (34.0-46.0) % MCV 83.2 (80.0-100.0) fL MCH 29.2 (25.0-35.0) pg MCHC 35.2 (31.0-37.0) g/dL RDW 15.8 H (11.5-15.5) % Plt Count 237 (150-450) k/uL Neutrophils % 59 % Lymphocytes % 30 % Monocytes % 4 % Eosinophils % 3 % Basophils % 1 % Neutrophils # 3.9 (1.3-7.7) k/uL Lymphocytes # 2.0 (1.0-4.8) k/uL Monocytes # 0.3 (0-1.0) k/uL Eosinophils # 0.2 (0-0.7) k/uL Basophils # 0.1 (0-0.2) k/uL Sodium 140 (137-145) mmol/L Potassium 3.9 (3.5-5.1) mmol/L Chloride 104 (98-107) mmol/L Carbon Dioxide 21 L (22-30) mmol/L Anion Gap 15 mmol/L BUN 15 (7-17) mg/dL Creatinine 0.85 (0.52-1.04) mg/dL Est GFR (CKD-EPI)AfAm 80 (>60 ml/min/1.73 sqM) Est GFR (CKD-EPI)NonAf 69 (>60 ml/min/1.73 sqM) Glucose 143 H (74-99) mg/dL Plasma Lactic Acid Claus 5.8 H* (0.7-2.0) mmol/L Calcium 9.3 (8.4-10.2) mg/dL Total Bilirubin 0.9 (0.2-1.3) mg/dL AST 28 (14-36) U/L ALT 33 (9-52) U/L Alkaline Phosphatase 82 (38-126) U/L Total Protein 6.9 (6.3-8.2) g/dL Albumin 4.4 (3.5-5.0) g/dL Amylase 51 (30-110) U/L Lipase 83 (23-300) U/L Urine Color Urine Appearance (Clear) Urine pH (5.0-8.0) Ur Specific [place] (1.001-1.035) Urine Protein (Negative) Urine Glucose (UA) (Negative) Urine Ketones (Negative) Urine Blood (Negative) Urine Nitrite (Negative) Urine Bilirubin (Negative) Urine Urobilinogen (<2.0) mg/dL Ur Leukocyte Esterase (Negative) 02/09/19 Range/Units 12:20 WBC (3.8-10.6) k/uL RBC (3.80-5.40) m/uL Hgb (11.4-16.0) gm/dL Hct (34.0-46.0) % MCV (80.0-100.0) fL MCH (25.0-35.0) pg MCHC (31.0-37.0) g/dL RDW (11.5-15.5) % Plt Count (150-450) k/uL Neutrophils % % Lymphocytes % % Monocytes % % Eosinophils % % Basophils % % Neutrophils # (1.3-7.7) k/uL Lymphocytes # (1.0-4.8) k/uL Monocytes # (0-1.0) k/uL Eosinophils # (0-0.7) k/uL Basophils # (0-0.2) k/uL Sodium (137-145) mmol/L Potassium (3.5-5.1) mmol/L Chloride (98-107) mmol/L Carbon Dioxide (22-30) mmol/L Anion Gap mmol/L BUN (7-17) mg/dL Creatinine (0.52-1.04) mg/dL Est GFR (CKD-EPI)AfAm (>60 ml/min/1.73 sqM) Est GFR (CKD-EPI)NonAf (>60 ml/min/1.73 sqM) Glucose (74-99) mg/dL Plasma Lactic Acid Claus (0.7-2.0) mmol/L Calcium (8.4-10.2) mg/dL Total Bilirubin (0.2-1.3) mg/dL AST (14-36) U/L ALT (9-52) U/L Alkaline Phosphatase (38-126) U/L Total Protein (6.3-8.2) g/dL Albumin (3.5-5.0) g/dL Amylase (30-110) U/L Lipase (23-300) U/L Urine Color Yellow Urine Appearance Clear (Clear) Urine pH 7.0 (5.0-8.0) Ur Specific [place] 1.018 (1.001-1.035) Urine Protein Negative (Negative) Urine Glucose (UA) Negative (Negative) Urine Ketones Negative (Negative) Urine Blood Negative (Negative) Urine Nitrite Negative (Negative) Urine Bilirubin Negative (Negative) Urine Urobilinogen <2.0 (<2.0) mg/dL Ur Leukocyte Esterase Negative (Negative) Disposition Clinical Impression: Abdominal pain, Lactic acidosis Disposition: ADMITTED IP TO THIS HOSP Condition: Fair Referrals: Twila Medina MD [Primary Care Provider] - 1-2 days
[2019-02-09 12:59] LABS: Appearance,Urine Clear (Clear); Bilirubin,Urine Negative (Negative); Blood,Urine Negative (Negative); Color,Urine Yellow; Glucose,Urine (UA) Negative (Negative); Ketones,Urine Negative (Negative); Leukocyte Esterase,Urine Negative (Negative); Nitrite,Urine Negative (Negative); Protein,Urine Negative (Negative); Specific Gravity,Urine 1.018 (1.001-1.035); Urobilinogen,Urine <2.0 mg/dL (<2.0)
[2019-02-09] MEDS ORDERED: NALOXONE 0.4 MG/ML 1 ML VIAL IV PRN (13:50)
[2019-02-09] MEDS ORDERED: HYDROmorphone 1 MG/ML 1 ML SYRINGE IVP PRN (13:50)
[2019-02-09] MEDS: SODIUM CHLORIDE 0.9% 1,000 ML IV SCH ×2 (14:49→22:48)
[2019-02-09 16:30] VITALS: BMI 68.1
[2019-02-09] MEDS: HYDROmorphone 0.5 MG/0.5 ML SYRINGE IVP PRN ×2 (16:48→20:23)
[2019-02-09] MEDS: ONDANSETRON 4 MG/2 ML VIAL IVP PRN (20:24)
[2019-02-09] MEDS ORDERED: BISACODYL 10 MG SUPP RECTAL PRN (21:50)
[2019-02-09] MEDS: METOPROLOL SUCCINATE (ER) 50 MG TAB.ER.24H PO SCH (22:43)
[2019-02-09] MEDS: ASPIRIN 81 MG PO SCH (22:44)
[2019-02-09] MEDS: PRAVASTATIN SODIUM 20 MG TAB PO SCH (22:44)
[2019-02-10] MEDS: SODIUM CHLORIDE 0.9% 1,000 ML IV SCH ×2 (08:30→21:38)
[2019-02-10] MEDS: METOPROLOL SUCCINATE (ER) 50 MG TAB.ER.24H PO SCH (08:30)
[2019-02-10] MEDS ORDERED: IPRATROPIUM-ALBUTEROL 3 ML NEB INHALATION PRN (11:21)
[2019-02-10] MEDS ORDERED: ACETAMINOPHEN TAB 325 MG TAB PO PRN (12:07)
[2019-02-10] MEDS ORDERED: HYDROcodone/APAP 5-325MG 1 EACH TAB PO PRN (12:07)
[2019-02-10] MEDS ORDERED: PEG 3350-NA SULF,BICARB,CL/KCL 4,000 ML BOTTLE PO ONE (12:08)
[2019-02-10] MEDS: LEVOTHYROXINE 112 MCG TAB PO SCH (12:45)
[2019-02-10] MEDS: BACLOFEN 10 MG TAB PO SCH ×2 (12:45→18:39)
[2019-02-10] MEDS: ONDANSETRON 4 MG/2 ML VIAL IVP PRN (12:46)
--- NOTE | 2019-02-10 14:29 | US ---
EXAMINATION TYPE: US renals and bladder DATE OF EXAM: 02/10/2019 COMPARISON: CT, US CLINICAL HISTORY: Left Flank pain per patient; patient stated passed right renal stone earlier this y ear. EXAM MEASUREMENTS: Right Kidney: 9.5 x 4.7 x 3.7 cm Left Kidney: 9.7 x 5.7 x 5.1 cm Post Void Residual Volume: not assessed on inpatient Right Kidney: prominent Column of Maxi is noted, hyperechoic micro focus seen in cortex mid pole. Left Kidney: cluster of mid pole small calcifications seen at corticomedullary borer which may be ves jose luis wall calcifications vs. microlithiasis Bladder: wnl Bilateral Jets seen: no, only left ureteral jet was seen No hydronephrosis. IMPRESSION: Bilateral nephrolithiasis with no overt hydronephrosis. Increased echogenicity of the renal cortex romano ggest chronic medical renal disease.
--- NOTE | 2019-02-10 14:49 | P.HPIM ---
History of Present Illness H&P Date: 02/10/19 Chief Complaint: Back pain, left lower quadrant pain This is a 73-year-old female patient of Dr. Medina with past medical history of paroxysmal atrial fibrillation, mild intermittent asthma, gastroesophageal reflux disease, hypothyroidism with Lo, degenerative disc disease of the lumbar spine and spinal stenosis, borderline diabetic, kidney stones, urinary tract infection, cataract, depression. Patient gives history that she saw Dr. Medina on Sunday for back pain that was in the lower thoracic area and wrapped around to her left lower quadrant in the abdomen. He was concerned about colon issue and patient was to be set up with an appointment with Dr. rogers or Dr. Joya to see. Patient has had a previous colonoscopy in the last one being 3 years ago with polyp removal done by Dr. Askew. Patient states that over the weekend the pain became much worse on Sunday she wasn't able to walk due to the pain. Her last bowel movement was yesterday. She states she has daily bowel movements. CBC was unremarkable, blood sugar 143. Initial lactic acid 5.8 status post fluid resuscitation. Repeat lactic acid 1.1. Electrolytes within normal limits, kidney function and liver function within normal limits. Urinalysis negative for infection. CAT scan of the abdomen and pelvis without contrast revealed no hydronephrosis or nephrolithiasis of either kidney. No calculi in the urinary bladder or visualized proximal urethra. 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 At least moderate grade hepatic steatosis which patient states she has known about. Focal narrowing of the sigmoid colon in a short segment. May represent nonobstructing colonic spasm however correlation with any recent colonoscopy would be recommended. Patient was admitted initially to the cardiac stepdown unit due to lactic acidosis. We have now downgraded her to [facility] floor without telemetry. Renal ultrasound reveals bilateral nephrolithiasis with no overt hydronephrosis. Increased echogenicity of the renal cortex suggest chronic medical renal disease. Review of Systems Constitutional: Denies anorexia, Denies chills, Denies fatigue, Denies fever, Denies lethargy, Denies malaise, Denies poor appetite, Denies weakness Ears, nose, mouth and throat: Denies headache, Denies sore throat, Denies vertigo Cardiovascular: Denies decreased exercise tolerance, Denies dyspnea on exertion, Denies leg edema, Denies lightheadedness, Denies syncope Respiratory: Denies congestion, Denies cough with sputum, Denies dyspnea, Denies excessive sputum, Denies hemoptysis, Denies home oxygen, Denies wheezing Gastrointestinal: Reports abdominal pain, Reports loss of appetite, Denies constipation, Denies diarrhea, Denies vomiting Genitourinary: Denies dysuria, Denies urgency, Denies urinary frequency Musculoskeletal: Reports gait dysfunction, Denies myalgias Integumentary: Denies pruritus, Denies rash, Denies wounds Neurological: Reports gait dysfunction, Denies numbness, Denies weakness Psychiatric: Denies anxiety, Denies depression Endocrine: Denies fatigue, Denies weight change Past Medical History Past Medical History: Atrial Fibrillation, Asthma, GERD/Reflux, Hyperlipidemia, Thyroid Disorder Additional Past Medical History / Comment(s): lo, back pain DDD SPINAL STENOSIS, BOARDERLINE DIABETIC, KIDNEY STONES, UTI, CATARACT History of Any Multi-Drug Resistant Organisms: None Reported Past Surgical History: Adenoidectomy, Breast Surgery, Section, Orthopedic Surgery, Tonsillectomy Additional Past Surgical History / Comment(s): thyroidectomy, LT KNEE REPLACEMENT(HAD SEVERAL SX ON THAT KNEE, 1 ST ONE HAD A TORN MENISCUS HAD SX THEN GOT INFECTION /SEPTIC HAD TO REOPEN IT. THEN 20 YEARS LATER HAD A TOTAL KNEE REPLACEMENT.MILES CARPAL TUNNEL, CKC, 3 RT BREAST LUMPS REMOVED ALL BENIGN, STERO BIOPSY FOR SUSPICIUS CALCIFICATION BUT CAME BACK BENIGN, Past Anesthesia/Blood Transfusion Reactions: Motion Sickness Additional Past Anesthesia/Blood Transfusion Reaction / Comment(s): Anesthesia- depends on what they give her. Past Psychological History: Depression Additional Psychological History / Comment(s): Takes prozac and busporin Smoking Status: Never smoker Past Alcohol Use History: Occasional Past Drug Use History: None Reported - Past Family History Daughter(s) Additional Family Medical History / Comment(s): has 2 children with no major medical problems. Father Additional Family Medical History / Comment(s): PARONIOD SCHITZ, HX TB. COMMITTED SUICIDE. Mother Additional Family Medical History / Comment(s): Mother at age 86 with history of hyperlipidemia. She had leg infection that became septic and she from this and acute kidney injury. Medications and Allergies Home Medications Medication Instructions Recorded Confirmed Type Aspirin 81 mg PO HS 11/03/14 02/09/19 History Cholecalciferol [Vitamin D3 (25 5,000 unit PO DAILY 11/03/14 02/09/19 History Mcg = 1000 Iu)] FLUoxetine HCL [PROzac] 20 mg PO DAILY 11/03/14 02/09/19 History Fluticasone/Salmeterol [Advair 1 puff INHALATION RT-BID 11/03/14 02/09/19 History 100-50 Diskus] Digoxin [Lanoxin] 125 mcg PO DAILY 07/27/16 02/10/19 History Estradiol [Vagifem] 10 mcg VAGINAL Q72H 07/27/16 02/09/19 History Levothyroxine Sodium [Synthroid] 112 mcg PO MOTUWETHFRSA 07/27/16 02/09/19 History busPIRone HCL 15 mg PO DAILY 07/27/16 02/09/19 History Ipratropium/Albuterol Sulfate 1 puff INHALATION RT-QID PRN 11/29/17 02/09/19 History [Combivent Respimat Inhaler] Magnus Red 500 mg PO DAILY 11/29/17 02/09/19 History Metoprolol Succinate [Toprol XL] 50 mg PO BID 11/29/17 02/09/19 History Famotidine [Pepcid] 20 mg PO BID 02/09/19 02/09/19 History Mag/Aluminum/Sod Bicarb/Alginc 1 tab PO DAILY PRN 02/09/19 02/09/19 History [Gaviscon 80-14.2 mg Tab Chew] Metoprolol Succinate (ER) [Toprol 25 mg PO BID 02/09/19 02/09/19 History Xl] Pravastatin Sodium [Pravachol] 20 mg PO HS 02/09/19 02/09/19 History Allergies Allergy/AdvReac Type Severity Reaction Status Date / Time atorvastatin calcium Allergy Itching Verified 02/09/19 11:04 [From Lipitor] codeine Allergy Nausea Verified 02/09/19 11:04 erythromycin base Allergy Abdominal Verified 02/09/19 11:04 Pain yeast, dried [yeast] Allergy Nausea & Verified 02/09/19 11:04 Vomiting & Diarrhea Iodinated Contrast- Oral and AdvReac KIDNEY Verified 02/09/19 11:04 IV Dye ISSUES [Iodinated Contrast Media - Oral and] morphine AdvReac Nausea Verified 02/09/19 11:04 Physical Exam Vitals: Vital Signs Temp Pulse Pulse Resp BP BP Pulse Ox 02/10/19 08:00 98.8 F 65 18 110/49 94 L 02/10/19 04:00 97.9 F 60 18 118/67 96 02/09/19 23:16 98.1 F 65 17 111/63 95 02/09/19 20:00 97.0 F L 64 18 132/64 97 02/09/19 16:00 68 20 02/09/19 15:32 98.1 F 72 15 126/63 98 02/09/19 15:12 97.6 F 68 20 112/57 Intake and Output 02/09/19 02/10/19 02/10/19 22:59 06:59 14:59 Output Total 200 400 0 Balance -200 -400 0 Output: Urine 400 0 Emesis 200 Other: # Voids 1 1 # Bowel Movements 0 0 # Emeses 1 Weight 86.7 kg Gen: This is a 73-year-old female. Patient is resting bed but appears to be uncomfortable secondary to pain with movement in bed. HEENT: Head is atraumatic, normocephalic. Pupils equal, round. Sclerae is anicteric. NECK: Supple. No JVD. No lymphadenopathy. No thyromegaly. LUNGS: Clear to auscultation. No wheezes or rhonchi. No intercostal retractions. HEART: Regular rate and rhythm. No murmur. ABDOMEN: Soft. Bowel sounds are present. No masses. Left lower quadrant tenderness. Bilateral CVA tenderness. EXTREMITIES: No pedal edema. No calf tenderness. NEUROLOGICAL: Patient is awake, alert and oriented x3. Cranial nerves 2 through 12 are grossly intact. Results CBC & Chem 7: 02/09/19 10:45 02/09/19 10:45 Thrombosis Risk Factor Assmnt - DVT/VTE Prophylaxis DVT/VTE Prophylaxis: Pharmacologic Prophylaxis ordered - Choose All That Apply Each Factor Represents 1 point: Obesity (BMI >25) Each Risk Factor Represents 2 Points: Age 61-74 years Thrombosis Risk Factor Assessment Total Risk Factor Score: 3 Thrombosis Risk Factor Assessment Level: Moderate Risk Assessment and Plan Plan: 1. Left lower quadrant pain and sigmoid narrowing found on CAT scan. Consult with general surgery. Continue IV fluids 0.9 normal saline at 100 mL per hour. [place], Tylenol or Dilaudid for pain control. Zofran for nausea and vomiting. Barium enema ordered for tomorrow. 2. Bilateral flank pain and tenderness secondary to bilateral renal stones without hydronephrosis. Continue IV fluids, strain urine. Continue current pain management. 3. Paroxysmal atrial fibrillation. Continue Toprol-XL 75 mg twice daily, digoxin 125 g daily. 4. Mild intermittent asthma. Continue DuoNeb treatments 4 times daily as needed, Symbicort twice daily. 5. Hypothyroidism with Lo. Continue levothyroxine 112 g Sunday through Sunday. 6. Hyperlipidemia. Continue pravastatin 20 mg at bedtime. 7. Gastroesophageal reflux disease. Continue Pepcid. 8. Degenerative disc disease of lumbar spine and spinal stenosis. Continue baclofen 10 mg 3 times daily. 9. Recurrent depression. Continue Prozac 20 mg daily, BuSpar 15 mg daily. 10. DVT prophylaxis. Heparin subcu. Patient will be admitted to the hospital for a minimum of 2 night stay. Discharge plan: Return home in next 24-48 hours Impression and plan of care have been directed as dictated by the signing physician. Ananya Pradhan nurse practitioner acting as scribe for signing physician.
--- NOTE | 2019-02-10 14:52 | XR ---
EXAMINATION TYPE: XR thoracic spine complete DATE OF EXAM: 02/10/2019 COMPARISON: NONE HISTORY: Pain Alignment is anatomic. There is no compression deformities. Vertebral body height and disc interspa summer are maintained. Hypertrophic and degenerative change of the spine are noted. Surgical clips in t he upper abdomen noted. IMPRESSION: 1. Multilevel degenerative disc disease. Recommend follow-up MRI.
[2019-02-10] MEDS: HEPARIN SODIUM,PORCINE 5,000 UNIT/ML 1 ML VIAL SQ SCH (18:40)
[2019-02-10] MEDS: SYMBICORT 80-4.5 MCG INHALER INHALATION SCH (19:24)
[2019-02-10] MEDS: ASPIRIN 81 MG PO SCH (20:05)
[2019-02-10] MEDS: FAMOTIDINE 20 MG TAB PO SCH (20:05)
[2019-02-10] MEDS: PRAVASTATIN SODIUM 20 MG TAB PO SCH (20:05)
[2019-02-10] MEDS: METOPROLOL SUCCINATE (ER) 25 MG TAB.ER.24H PO SCH (20:06)
[2019-02-11] MEDS: BACLOFEN 10 MG TAB PO SCH ×2 (00:38→08:14)
[2019-02-11] MEDS: HEPARIN SODIUM,PORCINE 5,000 UNIT/ML 1 ML VIAL SQ SCH ×2 (00:38→08:14)
[2019-02-11] MEDS: SODIUM CHLORIDE 0.9% 1,000 ML IV SCH (06:53)
[2019-02-11] MEDS: LEVOTHYROXINE 112 MCG TAB PO SCH (06:53)
[2019-02-11] MEDS: SYMBICORT 80-4.5 MCG INHALER INHALATION SCH (08:13)
[2019-02-11] MEDS: METOPROLOL SUCCINATE (ER) 25 MG TAB.ER.24H PO SCH (08:13)
[2019-02-11] MEDS: FAMOTIDINE 20 MG TAB PO SCH (08:14)
[2019-02-11 08:46] VITALS: BP 129/67; PULSE 61; RESP 16; TEMP 98.2
[2019-02-11] MEDS ORDERED: busPIRone HCl 5 MG TAB PO SCH (09:00)
[2019-02-11] MEDS ORDERED: FLUoxetine HCL 20 MG CAP PO SCH (09:00)
[2019-02-11] MEDS ORDERED: DIGOXIN 125 MCG TAB PO SCH (09:00)
--- NOTE | 2019-02-11 11:13 | FL ---
EXAMINATION TYPE: FL barium enema w air contrast DATE OF EXAM: 02/11/2019 COMPARISON: CT abdomen and pelvis from 2 days ago. HISTORY: Left lower quadrant pain, abnormal CT with sigmoid narrowing. Recent negative colonoscopy 3 years ago. TECHNIQUE: A double contrast barium enema study is performed. A total of 1 minute 54 seconds of fluo roscopic time was utilized during procedure. 34 spot images are saved to PACS. FINDINGS: Automobile Mechanic view of the abdomen shows overall non-obstructive bowel gas pattern. Cholecystectomy clips are redemonstrated. After discussion with position of most concern is the sigmoid colon at area of CT concern. Enema stud y is begun. There is successful filling of redundant sigmoid colon up to level of left colon. Patient has increased pain and thus contrast is not further given as area of clinical concern is successfull y opacified. There is no fixed stricture or concentric neoplasm throughout the redundant sigmoid colo n. Area of concern on CT is consistent with spasm. Some fecal debris noted throughout the colon parti cularly left colon. IMPRESSION: As above, successful clearance of the sigmoid colon from focal stricture or constricting neoplasm.
--- NOTE | 2019-02-11 14:50 | P.DS ---
Providers Date of admission: 02/09/19 13:50 Expected date of discharge: 02/11/19 Attending physician: Torrey Jaimes Consults: 02/10/19 11:12 Consult Physician Routine Consulting Provider: Shahla Joya Consult Reason/Comments: LLQ pain, narrowing sigmoid Do you want consulting provider notified?: Yes Primary care physician: Twila Medina Hospital Course: This is a 73-year-old female patient of Dr. Medina with past medical history of paroxysmal atrial fibrillation, mild intermittent asthma, gastroesophageal reflux disease, hypothyroidism with Jing, degenerative disc disease of the lumbar spine and spinal stenosis, borderline diabetic, kidney stones, urinary tract infection, cataract, depression. Patient gives history that she saw Dr. Medina on Sunday for back pain that was in the lower thoracic area and wrapped around to her left lower quadrant in the abdomen. He was concerned about colon issue and patient was to be set up with an appointment with Dr. alvarado or Dr. Joya to see. Patient has had a previous colonoscopy in the last one being 3 years ago with polyp removal done by Dr. Askew. Patient states that over the weekend the pain became much worse on Sunday she wasn't able to walk due to the pain. Her last bowel movement was yesterday. She states she has daily bowel movements. CBC was unremarkable, blood sugar 143. Initial lactic acid 5.8 status post fluid resuscitation. Repeat lactic acid 1.1. Electrolytes within normal limits, kidney function and liver function within normal limits. Urinalysis negative for infection. CAT scan of the abdomen and pelvis without contrast revealed no hydronephrosis or nephrolithiasis of either kidney. No calculi in the urinary bladder or visualized proximal urethra. 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 At least moderate grade hepatic steatosis which patient states she has known about. Focal narrowing of the sigmoid colon in a short segment. May represent nonobstructing colonic spasm however correlation with any recent colonoscopy would be recommended. Patient was admitted initially to the cardiac stepdown unit due to lactic acidosis. We have now downgraded her to [facility] floor without telemetry. Renal ultrasound reveals bilateral nephrolithiasis with no overt hydronephrosis. Increased echogenicity of the renal cortex suggest chronic medical renal disease. 02/11: Patient underwent barium enema this morning which confirmed a sigmoid spasm. Patient states that her abdominal pain is tolerable. She does have continued left groin pain which most likely is related to passing kidney stone. Urine is to be strained. Flomax will be started as well as baclofen. Lumbar spine x-ray showed degenerative changes. Patient will be discharged home today in stable condition. Discharge diagnoses: 1. Left lower quadrant pain and sigmoid narrowing found on CAT scan. Barium enema confirms sigmoid spasm. 2. Bilateral flank pain and tenderness secondary to bilateral renal stones without hydronephrosis. 3. Paroxysmal atrial fibrillation. 4. Mild intermittent asthma. 5. Hypothyroidism with Jing. 6. Hyperlipidemia. 7. Gastroesophageal reflux disease. 8. Degenerative disc disease of lumbar spine and spinal stenosis. 9. Recurrent depression. Discharge plan: Return home Impression and plan of care have been directed as dictated by the signing physician. Ananya Pradhan nurse practitioner acting as scribe for signing physician. Patient Condition at Discharge: Good Plan - Discharge Summary Discharge Rx Participant: No New Discharge Prescriptions: New Tamsulosin [Flomax] 0.4 mg PO DAILY #30 cap Baclofen [Lioresal] 10 mg PO TID #90 tab Continue Aspirin 81 mg PO HS Fluticasone/Salmeterol [Advair 100-50 Diskus] 1 puff INHALATION RT-BID FLUoxetine HCL [PROzac] 20 mg PO DAILY Cholecalciferol [Vitamin D3 (25 Mcg = 1000 Iu)] 5,000 unit PO DAILY busPIRone HCL 15 mg PO DAILY Levothyroxine Sodium [Synthroid] 112 mcg PO MOTUWETHFRSA Digoxin [Lanoxin] 125 mcg PO DAILY Estradiol [Vagifem] 10 mcg VAGINAL Q72H Magnus Red 500 mg PO DAILY Ipratropium/Albuterol Sulfate [Combivent Respimat Inhaler] 1 puff INHALATION RT-QID PRN PRN Reason: Shortness Of Breath Metoprolol Succinate [Toprol XL] 50 mg PO BID Famotidine [Pepcid] 20 mg PO BID Pravastatin Sodium [Pravachol] 20 mg PO HS Metoprolol Succinate (ER) [Toprol XL] 25 mg PO BID Mag/Aluminum/Sod Bicarb/Alginc [Gaviscon 80-14.2 mg Tab Chew] 1 tab PO DAILY PRN PRN Reason: Gi Upset Discharge Medication List Aspirin 81 mg PO HS 11/03/14 [History] Cholecalciferol [Vitamin D3 (25 Mcg = 1000 Iu)] 5,000 unit PO DAILY 11/03/14 [History] FLUoxetine HCL [PROzac] 20 mg PO DAILY 11/03/14 [History] Fluticasone/Salmeterol [Advair 100-50 Diskus] 1 puff INHALATION RT-BID 11/03/14 [History] Digoxin [Lanoxin] 125 mcg PO DAILY 07/27/16 [History] Estradiol [Vagifem] 10 mcg VAGINAL Q72H 07/27/16 [History] Levothyroxine Sodium [Synthroid] 112 mcg PO MOTUWETHFRSA 07/27/16 [History] busPIRone HCL 15 mg PO DAILY 07/27/16 [History] Ipratropium/Albuterol Sulfate [Combivent Respimat Inhaler] 1 puff INHALATION RT- QID PRN 11/29/17 [History] Magnus Red 500 mg PO DAILY 11/29/17 [History] Metoprolol Succinate [Toprol XL] 50 mg PO BID 11/29/17 [History] Famotidine [Pepcid] 20 mg PO BID 02/09/19 [History] Mag/Aluminum/Sod Bicarb/Alginc [Gaviscon 80-14.2 mg Tab Chew] 1 tab PO DAILY PRN 02/09/19 [History] Metoprolol Succinate (ER) [Toprol XL] 25 mg PO BID 02/09/19 [History] Pravastatin Sodium [Pravachol] 20 mg PO HS 02/09/19 [History] Baclofen [Lioresal] 10 mg PO TID #90 tab 02/11/19 [Rx] Tamsulosin [Flomax] 0.4 mg PO DAILY #30 cap 02/11/19 [Rx] Follow up Appointment(s)/Referral(s): Farhat Alvarado DO [Doctor of Osteopathic Medicine] - 02/19/19 10:30 am (Sunday -previously scheduled appointment) Twila Medina MD [Primary Care Provider] - 02/18/19 9:15 am (Sunday with Dr. Jaspreet lanza) Patient Instructions/Handouts: Kidney Stones (DC) Activity/Diet/Wound Care/Special Instructions: Strain urine Discharge Disposition: HOME SELF-CARE
== END 2019-02-11 12:49 | disposition home or self-care (01) ==
LOC: EC 10:40 → 3SCARD 13:50
PROVIDERS: ADMIT Internal Medicine; ATTEND Internal Medicine
DX: K58.9 Irritable bowel syndrome, unspecified (principal); R11.2 Nausea with vomiting, unspecified; N20.0 Calculus of kidney; I48.0 Paroxysmal atrial fibrillation; E87.2 Acidosis; J45.20 Mild intermittent asthma, uncomplicated; E06.3 Autoimmune thyroiditis; E78.5 Hyperlipidemia, unspecified; K21.9 Gastro-esophageal reflux disease without esophagitis; M51.36 Other intervertebral disc degeneration, lumbar region; M48.061 Spinal stenosis, lumbar region without neurogenic claudication; F33.9 Major depressive disorder, recurrent, unspecified; R73.03 Prediabetes; K76.0 Fatty (change of) liver, not elsewhere classified; E89.0 Postprocedural hypothyroidism; Z87.442 Personal history of urinary calculi; Z87.440 Personal history of urinary (tract) infections; E66.9 Obesity, unspecified; Z68.32 Body mass index [BMI] 32.0-32.9, adult; Z79.899 Other long term (current) drug therapy; Z79.890 Hormone replacement therapy; Z79.82 Long term (current) use of aspirin; Z88.1 Allergy status to other antibiotic agents; Z91.041 Radiographic dye allergy status; Z88.5 Allergy status to narcotic agent; Z88.8 Allergy status to other drugs, medicaments and biological substances; Z91.018 Allergy to other foods; Z81.8 Family history of other mental and behavioral disorders; Z84.1 Family history of disorders of kidney and ureter; Z82.49 Family history of ischemic heart disease and other diseases of the circulatory system
CPT/HCPCS: 96376 ×2; 96361 ×3; 96372 ×2; 96374; 96375; 99285; 36415; 94640 ×3; 80053; 82150; 83605; 83690; 84550; 85025; 81003; 72072; 74280; 76770; 74176; G0378 ×3; J1644 ×2; J2405 ×2; J1170

== ENCOUNTER → 2019-02-18 | Outpatient (CLI) | payer MEDICARE, OTHER ==
[2019-02-18 11:28] LABS: Basophils # (A) 0.1 k/uL (0-0.2); Basophils % (A) 1 %; Eosinophils # (A) 0.1 k/uL (0-0.7); Eosinophils % (A) 2 %; HCT 40.2 % (34.0-46.0); HGB 13.9 gm/dL (11.4-16.0); Lymphocytes # (A) 1.4 k/uL (1.0-4.8); Lymphocytes % (A) 19 %; MCH 28.8 pg (25.0-35.0); MCHC 34.5 g/dL (31.0-37.0); MCV 83.7 fL (80.0-100.0); Mean Platelet Volume 7.2; Monocytes # (A) 0.5 k/uL (0-1.0); Monocytes % (A) 7 %; Neutrophils # (A) 5.2 k/uL (1.3-7.7); Neutrophils % (A) 71 %; Platelet Count 192 k/uL (150-450); RDW 13.2 % (11.5-15.5); WBC 7.3 k/uL (3.8-10.6)
[2019-02-18 13:25] LABS: Erythrocyte Sedimentation Rate 6 mm/hr (0-20)
[2019-02-18 17:40] LABS: African American GFR (CKD) 74.6 (60.0-200.0); Albumin 4.4 g/dL (3.80-4.90); Albumin/Globulin Ratio 2.59 (1.60-3.17); Anion Gap 6.8 mmol/L (4.00-12.00); BUN/Creat Ratio 16.67 Ratio (12.00-20.00); C Reactive Protein 0.6 mg/dL (0.0-0.8); Calcium 9.3 mg/dL (8.7-10.3); Carbon Dioxide 28.2 mmol/L (21.6-31.8); Globulin 1.7 g/dL (1.6-3.3); Potassium 4.5 mmol/L (3.5-5.5); Total Bilirubin 1.1 mg/dL (0.3-1.2); Total Protein 6.1 g/dL (6.2-8.2)
== END | disposition home or self-care (01) ==
LOC: LABWHC1 10:21
PROVIDERS: ATTEND Internal Medicine
DX: N20.0 Calculus of kidney (principal); R10.30 Lower abdominal pain, unspecified
CPT/HCPCS: 36415; 80053; 83605; 83690; 85025; 85652; 86140

== ENCOUNTER 2019-02-25 07:30 | Emergency (ER) | payer MEDICARE, OTHER ==
[2019-02-25 07:38] VITALS: TEMP 96.9
[2019-02-25] MEDS ORDERED: SODIUM CHLORIDE 0.9% 500 ML 500 ML IV STA (07:40)
[2019-02-25] MEDS ORDERED: SODIUM CHLORIDE 0.9% 1,000 ML IV STA (07:40)
[2019-02-25] MEDS ORDERED: KETOROLAC 30 MG/ML 1 ML VIAL IVP STA (07:42)
--- NOTE | 2019-02-25 07:59 | ED ---
Extremity Problem HPI - General Chief complaint: Extremity Problem,Nontraumatic Stated complaint: lt groin pain Time Seen by Provider: 02/25/19 07:30 Source: patient, EMS, RN notes reviewed Mode of arrival: EMS Limitations: no limitations - History of Present Illness Initial comments: This is a 73-year-old female who states she's had left hip pain and leg pain for last 2 weeks but 5 AM this morning he got very severe stressing the anterior groin area sharp 10/10 severity she states she has of a history of degenerative bone disease. He denies any trauma no fevers chills nausea vomiting sweats no dysuria or hematuria she states that leg and she feels better and if flexed position she states she does have some pain sometimes to her left hip and bu ttock area. No loss of function to the lower extremity is pain with movement. No other modifying factors at this time MD Complaint: extremity pain - Related Data Home Medications Medication Instructions Recorded Confirmed Aspirin 81 mg PO HS 11/03/14 02/25/19 Cholecalciferol [Vitamin D3 (25 5,000 unit PO DAILY 11/03/14 02/25/19 Mcg = 1000 Iu)] FLUoxetine HCL [PROzac] 20 mg PO DAILY 11/03/14 02/25/19 Fluticasone/Salmeterol [Advair 1 puff INHALATION RT-BID 11/03/14 02/25/19 100-50 Diskus] Digoxin [Lanoxin] 125 mcg PO DAILY 07/27/16 02/25/19 Estradiol [Vagifem] 10 mcg VAGINAL Q72H 07/27/16 02/25/19 Levothyroxine Sodium [Synthroid] 112 mcg PO MOTUWETHFRSA 07/27/16 02/25/19 busPIRone HCL 15 mg PO DAILY 07/27/16 02/25/19 Ipratropium/Albuterol Sulfate 1 puff INHALATION RT-QID PRN 11/29/17 02/25/19 [Combivent Respimat Inhaler] Magnus Red 500 mg PO DAILY 11/29/17 02/25/19 Metoprolol Succinate [Toprol XL] 50 mg PO BID 11/29/17 02/25/19 Famotidine [Pepcid] 20 mg PO BID 02/09/19 02/25/19 Mag/Aluminum/Sod Bicarb/Alginc 1 tab PO DAILY PRN 02/09/19 02/25/19 [Gaviscon 80-14.2 mg Tab Chew] Metoprolol Succinate (ER) [Toprol 25 mg PO BID 02/09/19 02/25/19 XL] Pravastatin Sodium [Pravachol] 20 mg PO HS 02/09/19 02/25/19 Previous Rx's Medication Instructions Recorded Baclofen [Lioresal] 10 mg PO TID #90 tab 02/11/19 Tamsulosin [Flomax] 0.4 mg PO DAILY #30 cap 02/11/19 Hydrocodone/Acetaminophen [Tutwiler 1 each PO Q6HR PRN #12 tab 02/25/19 5-325] Ibuprofen 800 mg PO Q6HR PRN #20 tablet 02/25/19 Allergies Allergy/AdvReac Type Severity Reaction Status Date / Time atorvastatin calcium Allergy Itching Verified 02/25/19 08:03 [From Lipitor] codeine AdvReac Nausea Verified 02/25/19 08:03 erythromycin base AdvReac Abdominal Verified 02/25/19 08:03 Pain Iodinated Contrast Media AdvReac KIDNEY Verified 02/25/19 08:03 [Iodinated Contrast Media - ISSUES Oral and] morphine AdvReac Nausea Verified 02/25/19 08:03 yeast, dried [yeast] AdvReac Nausea & Verified 02/25/19 08:03 Vomiting & Diarrhea Review of Systems ROS Statement: Those systems with pertinent positive or pertinent negative responses have been documented in the HPI. ROS Other: All systems not noted in ROS Statement are negative. Past Medical History Past Medical History: Atrial Fibrillation, Asthma, GERD/Reflux, Hyperlipidemia, Thyroid Disorder Additional Past Medical History / Comment(s): lo, back pain DDD SPINAL STENOSIS, BOARDERLINE DIABETIC, KIDNEY STONES, UTI, CATARACT History of Any Multi-Drug Resistant Organisms: None Reported Past Surgical History: Adenoidectomy, Breast Surgery, Section, Orthopedic Surgery, Tonsillectomy Additional Past Surgical History / Comment(s): thyroidectomy, LT KNEE REPLACEMENT(HAD SEVERAL SX ON THAT KNEE, 1 ST ONE HAD A TORN MENISCUS HAD SX THEN GOT INFECTION /SEPTIC HAD TO REOPEN IT. THEN 20 YEARS LATER HAD A TOTAL KNEE REPLACEMENT.MILES CARPAL TUNNEL, CKC, 3 RT BREAST LUMPS REMOVED ALL BENIGN, STERO BIOPSY FOR SUSPICIUS CALCIFICATION BUT CAME BACK BENIGN, Past Anesthesia/Blood Transfusion Reactions: Motion Sickness Additional Past Anesthesia/Blood Transfusion Reaction / Comment(s): Anesthesia- depends on what they give her. Past Psychological History: Depression Smoking Status: Never smoker Past Alcohol Use History: Occasional Past Drug Use History: None Reported - Past Family History Daughter(s) Additional Family Medical History / Comment(s): has 2 children with no major medical problems. Father Additional Family Medical History / Comment(s): PARONIOD SCHITZ, HX TB. COMMITTED SUICIDE. Mother Additional Family Medical History / Comment(s): Mother at age 86 with history of hyperlipidemia. She had leg infection that became septic and she d ied from this and acute kidney injury. General Exam - General Exam Comments Initial Comments: This is a well-developed well-nourished awake alert oriented 3 female Limitations: no limitations General appearance: alert, anxious, in distress Head exam: Present: atraumatic, normocephalic, normal inspection Eye exam: Present: normal appearance, PERRL, EOMI. Absent: scleral icterus, conjunctival injection, periorbital swelling ENT exam: Present: normal exam, mucous membranes moist Neck exam: Present: normal inspection. Absent: tenderness, meningismus, lymphadenopathy Respiratory exam: Present: normal lung sounds bilaterally. Absent: respiratory distress, wheezes, rales, rhonchi, stridor Cardiovascular Exam: Present: regular rate, normal rhythm, normal heart sounds. Absent: systolic murmur, diastolic murmur, rubs, gallop, clicks GI/Abdominal exam: Present: soft, normal bowel sounds. Absent: distended, tenderness, guarding, rebound, rigid Rectal exam: Present: deferred Extremities exam: Present: normal inspection, full ROM, tenderness (Past p alpation of the left sciatic outlet over the left SI joint and over the left groin but no evidence of any hernias), normal capillary refill. Absent: pedal edema, joint swelling, calf tenderness Back exam: Present: normal inspection Neurological exam: Present: alert, oriented X3, CN II-XII intact Psychiatric exam: Present: normal affect, anxious Skin exam: Present: warm, dry, intact, normal color. Absent: rash Course Vital Signs 02/25/19 07:32 Temperature 96.9 F L Pulse Rate 75 Respiratory 18 Rate Blood Pressure 123/91 O2 Sat by Pulse 98 Oximetry Medical Decision Making - Medical Decision Making I did reevaluate patient multiple occasions she is showing improvement with decrease tenderness over left ankle area. Lab work is negative I did discuss case the patient regarding potential outpatient follow-up I did discuss case with Dr. alvarado the patient will follow-up in his office for evaluation of groin pain - Lab Data Result diagrams: 02/25/19 09:00 02/25/19 09:00 Lab Results 02/25/19 02/25/19 02/25/19 Range/Units 09:00 09:00 11:15 WBC 6.0 (3.8-10.6) k/uL RBC 5.09 (3.80-5.40) m/uL Hgb 14.5 (11.4-16.0) gm/dL Hct 41.8 (34.0-46.0) % MCV 82.2 (80.0-100.0) fL MCH 28.5 (25.0-35.0) pg MCHC 34.7 (31.0-37.0) g/dL RDW 12.8 (11.5-15.5) % Plt Count 219 (150-450) k/uL Neutrophils % 62 % Lymphocytes % 27 % Monocytes % 7 % Eosinophils % 2 % Basophils % 1 % Neutrophils # 3.8 (1.3-7.7) k/uL Lymphocytes # 1.6 (1.0-4.8) k/uL Monocytes # 0.4 (0-1.0) k/uL Eosinophils # 0.1 (0-0.7) k/uL Basophils # 0.1 (0-0.2) k/uL Sodium 141 (137-145) mmol/L Potassium 4.4 (3.5-5.1) mmol/L Chloride 105 (98-107) mmol/L Carbon Dioxide 26 (22-30) mmol/L Anion Gap 10 mmol/L BUN 12 (7-17) mg/dL Creatinine 0.82 (0.52-1.04) mg/dL Est GFR (CKD-EPI)AfAm 83 (>60 ml/min/1.73 sqM) Est GFR (CKD-EPI)NonAf 72 (>60 ml/min/1.73 sqM) Glucose 110 H (74-99) mg/dL Calcium 9.7 (8.4-10.2) mg/dL Magnesium 1.9 (1.6-2.3) mg/dL Total Bilirubin 1.3 (0.2-1.3) mg/dL AST 34 (14-36) U/L ALT 29 (9-52) U/L Alkaline Phosphatase 75 (38-126) U/L Creatine Kinase 46 (30-135) U/L Total Protein 7.1 (6.3-8.2) g/dL Albumin 4.3 (3.5-5.0) g/dL Urine Color Yellow Urine Appearance Turbid H (Clear) Urine pH 7.5 (5.0-8.0) Ur Specific [place] 1.017 (1.001-1.035) Urine Protein Trace H (Negative) Urine Glucose (UA) Negative (Negative) Urine Ketones Negative (Negative) Urine Blood Negative (Negative) Urine Nitrite Negative (Negative) Urine Bilirubin Negative (Negative) Urine Urobilinogen 3.0 (<2.0) mg/dL Ur Leukocyte Esterase Trace H (Negative) Urine WBC 4 (0-5) /hpf Ur Squamous Epith Cells 17 H (0-4) /hpf Amorphous Sediment Occasional H (None) /hpf Urine Mucus Moderate H (None) /hpf - Radiology Data Radiology results: report reviewed (I did review the imaging and report no acute findings.), image reviewed Disposition Clinical Impression: Left groin pain Disposition: HOME SELF-CARE Condition: Good Instructions (If sedation given, give patient instructions): Groin Pain (ED) Prescriptions: Ibuprofen 800 mg PO Q6HR PRN #20 tablet PRN Reason: Pain Hydrocodone/Acetaminophen [Tutwiler 5-325] 1 each PO Q6HR PRN #12 tab PRN Reason: Pain Is patient prescribed a controlled substance at d/c from ED?: Yes When asked, does pt state using other controlled substances?: No If prescribed controlled substance>3 days was MAPS reviewed?: Prescribed <3 Days If opioid is for acute pain is fill amount 7 days or less?: Yes If Rx opioid, was Start Talking consent form obtained?: Yes Referrals: Twila Medina MD [Primary Care Provider] - 1-2 days Farhat Alvarado DO [Doctor of Osteopathic Medicine] - 1-2 days
[2019-02-25 09:30] LABS: Basophils # (A) 0.1 k/uL (0-0.2); Basophils % (A) 1 %; Eosinophils # (A) 0.1 k/uL (0-0.7); Eosinophils % (A) 2 %; HCT 41.8 % (34.0-46.0); HGB 14.5 gm/dL (11.4-16.0); Lymphocytes # (A) 1.6 k/uL (1.0-4.8); Lymphocytes % (A) 27 %; MCH 28.5 pg (25.0-35.0); MCHC 34.7 g/dL (31.0-37.0); MCV 82.2 fL (80.0-100.0); Mean Platelet Volume 6.7; Monocytes # (A) 0.4 k/uL (0-1.0); Monocytes % (A) 7 %; Neutrophils # (A) 3.8 k/uL (1.3-7.7); Neutrophils % (A) 62 %; Platelet Count 219 k/uL (150-450); RBC 5.09 m/uL (3.80-5.40); RDW 12.8 % (11.5-15.5)
--- NOTE | 2019-02-25 09:34 | XR ---
EXAMINATION TYPE: XR Hip LT and AP Pelvis DATE OF EXAM: 02/25/2019 COMPARISON: NONE HISTORY: Left hip pain TECHNIQUE: A single AP view of the pelvis is obtained. Two views of the left hip are obtained. FINDINGS: There is no acute fracture/dislocation evident in the pelvis. There is mild concentric beverley rowing of the joints bilaterally. Hypertrophic change involving the lateral margin left acetabulum. C alcifications in pelvis is nonspecific. Mild arthropathy of the SI joints. IMPRESSION: 1. No acute fracture or dislocation.
[2019-02-25 09:38] LABS: Albumin 4.3 g/dL (3.5-5.0); Calcium 9.7 mg/dL (8.4-10.2); Magnesium 1.9 mg/dL (1.6-2.3); Total Bilirubin 1.3 mg/dL (0.2-1.3); Total Protein 7.1 g/dL (6.3-8.2)
[2019-02-25 09:39] LABS: Potassium 4.4 mmol/L (3.5-5.1)
[2019-02-25 11:56] LABS: Amorphous Sediment,Urine Occasional /hpf; Appearance,Urine Turbid (Clear); Bilirubin,Urine Negative (Negative); Blood,Urine Negative (Negative); Color,Urine Yellow; Glucose,Urine (UA) Negative (Negative); Ketones,Urine Negative (Negative); Leukocyte Esterase,Urine Trace (Negative); Mucus,Urine Moderate /hpf; Nitrite,Urine Negative (Negative); PH, Urine 7.5 (5.0-8.0); Protein,Urine Trace (Negative); Specific Gravity,Urine 1.017 (1.001-1.035); Squamous Epithelial Cell,Urine 17 /hpf (0-4); WBC,Urine 4 /hpf (0-5)
[2019-02-25 12:35] VITALS: BP 127/102; PULSE 81; RESP 16
== END 2019-02-25 12:43 | disposition home or self-care (01) ==
LOC: EC 07:30
DX: R10.30 Lower abdominal pain, unspecified (principal); M25.552 Pain in left hip; I48.91 Unspecified atrial fibrillation; J45.909 Unspecified asthma, uncomplicated; K21.9 Gastro-esophageal reflux disease without esophagitis; E78.5 Hyperlipidemia, unspecified; E07.9 Disorder of thyroid, unspecified; F32.9 Major depressive disorder, single episode, unspecified; Z87.442 Personal history of urinary calculi; Z87.440 Personal history of urinary (tract) infections; Z96.652 Presence of left artificial knee joint; Z98.890 Other specified postprocedural states; Z79.51 Long term (current) use of inhaled steroids; Z79.82 Long term (current) use of aspirin; Z79.890 Hormone replacement therapy; Z79.899 Other long term (current) drug therapy
CPT/HCPCS: 36415; 80053; 82550; 83735; 85025; 81001; 73502; 99284; 96374; 96361; J1885

== ENCOUNTER → 2019-03-19 | Outpatient (CLI) | payer MEDICARE, OTHER ==
--- NOTE | 2019-03-20 14:49 | MM ---
Reason for exam: screening (asymptomatic). Last mammogram was performed 1 year and 4 months ago. History: Patient is postmenopausal. Family history of breast cancer in paternal aunt at age 40 and breast cancer in maternal aunt at age 60. Benign stereotactic core biopsy of the right breast, 2006. Benign excisional biopsy of the right breast, 1994. Benign excisional biopsy of the right breast, 1990. Physical Findings: A clinical breast exam by your physician is recommended on an annual basis and results should be correlated with mammographic findings. MG 3D Screening Mammo W/Cad Bilateral CC and MLO view(s) were taken. Prior study comparison: November 06, 2017, bilateral MG 3d screening mammo w/cad. October 31, 2016, bilateral MG 3d screening mammo w/cad. The breast tissue is heterogeneously dense. This may lower the sensitivity of mammography. There is a benign appearing stable circumscribed low density left middle posterior depth central outer mass back to 2016. Benign appearing calcifications in the right breast. Post surgical change on right. ASSESSMENT: Benign, BI-RAD 2 RECOMMENDATION: Routine screening mammogram of both breasts in 1 year.
== END | disposition home or self-care (01) ==
LOC: RADMAMWWP 08:58
PROVIDERS: ATTEND Internal Medicine
DX: Z12.31 Encounter for screening mammogram for malignant neoplasm of breast (principal)
CPT/HCPCS: 77063; 77067

== ENCOUNTER → 2019-04-01 | Outpatient (CLI) | payer MEDICARE, OTHER ==
[2019-04-01 13:07] LABS: Basophils # (A) 0.1 k/uL (0-0.2); Basophils % (A) 1 %; Eosinophils # (A) 0.2 k/uL (0-0.7); Eosinophils % (A) 2 %; HCT 44.6 % (34.0-46.0); HGB 15.3 gm/dL (11.4-16.0); Lymphocytes # (A) 2.5 k/uL (1.0-4.8); Lymphocytes % (A) 26 %; MCH 29.4 pg (25.0-35.0); MCHC 34.2 g/dL (31.0-37.0); MCV 86.1 fL (80.0-100.0); Mean Platelet Volume 5.7; Monocytes # (A) 0.6 k/uL (0-1.0); Monocytes % (A) 6 %; Neutrophils % (A) 64 %; Platelet Count 193 k/uL (150-450); RBC 5.18 m/uL (3.80-5.40); RDW 12.9 % (11.5-15.5); WBC 9.5 k/uL (3.8-10.6)
[2019-04-01 16:41] LABS: Protein, Total 6.1 g/dL (6.2-8.2)
[2019-04-02 13:51] LABS: Albumin 3.84 g/dL (3.80-4.90); Gamma Globulin 0.54 g/dL (0.70-1.50)
== END | disposition home or self-care (01) ==
LOC: LABWHC1 11:04
PROVIDERS: ATTEND Physical Medicine & Rehabilitation
DX: M54.2 Cervicalgia (principal); M16.12 Unilateral primary osteoarthritis, left hip; M51.36 Other intervertebral disc degeneration, lumbar region; M47.812 Spondylosis without myelopathy or radiculopathy, cervical region; M47.816 Spondylosis without myelopathy or radiculopathy, lumbar region; M41.86 Other forms of scoliosis, lumbar region; M43.16 Spondylolisthesis, lumbar region; M76.02 Gluteal tendinitis, left hip; M54.12 Radiculopathy, cervical region; M25.552 Pain in left hip; M54.5 Low back pain; M70.62 Trochanteric bursitis, left hip
CPT/HCPCS: 36415; 84165; 85025

== ENCOUNTER → 2019-04-22 | Outpatient (CLI) | payer MEDICARE, OTHER ==
[2019-04-22 10:55] LABS: HCT 40.2 % (34.0-46.0); HGB 13.8 gm/dL (11.4-16.0); MCH 29.3 pg (25.0-35.0); MCHC 34.3 g/dL (31.0-37.0); MCV 85.3 fL (80.0-100.0); Mean Platelet Volume 5.6; Platelet Count 231 k/uL (150-450); RBC 4.71 m/uL (3.80-5.40); RDW 13.3 % (11.5-15.5); WBC 5.8 k/uL (3.8-10.6)
[2019-04-22 12:21] LABS: Appearance,Urine Cloudy (Clear); Bacteria,Urine Few /hpf; Bilirubin,Urine Negative (Negative); Blood,Urine Negative (Negative); Calcium Oxalate Crystals,Urine Rare /hpf; Color,Urine Yellow; Glucose,Urine (UA) Negative (Negative); Ketones,Urine Negative (Negative); Leukocyte Esterase,Urine Moderate (Negative); Mucus,Urine Few /hpf; Nitrite,Urine Negative (Negative); PH, Urine 5.5 (5.0-8.0); Protein,Urine Negative (Negative); RBC,Urine 3 /hpf (0-5); Specific Gravity,Urine 1.021 (1.001-1.035); Squamous Epithelial Cell,Urine 21 /hpf (0-4); Urobilinogen,Urine <2.0 mg/dL (<2.0); WBC,Urine 20 /hpf (0-5)
[2019-04-22 16:31] LABS: % Iron Saturation 31.19 (12.00-45.00); African American GFR (CKD) 74.6 (60.0-200.0); Albumin 4.4 g/dL (3.80-4.90); Albumin/Globulin Ratio 2.59 (1.60-3.17); Anion Gap 7.7 mmol/L (4.00-12.00); BUN/Creat Ratio 15.56 Ratio (12.00-20.00); Calcium 9.3 mg/dL (8.7-10.3); Carbon Dioxide 30.3 mmol/L (21.6-31.8); Chol/HDL Ratio 4.24; Globulin 1.7 g/dL (1.6-3.3); LDL Cholesterol,Calculated 72.4 mg/dL (0.0-131.0); Magnesium 1.8 mg/dL (1.5-2.4); Phosphorus 3.9 mg/dL (2.4-5.1); Potassium 4.7 mmol/L (3.5-5.5); Total Bilirubin 0.9 mg/dL (0.3-1.2); Total Protein 6.1 g/dL (6.2-8.2); Uric Acid 7.5 mg/dL (2.9-7.7); VLDL Calculation 47.6 mg/dL (5.00-40.00)
[2019-04-22 16:38] LABS: Hemoglobin A1C 6.6 % (4.0-6.0)
[2019-04-22 16:41] LABS: Ferritin 189.8 ng/mL (10.0-291.0)
== END | disposition home or self-care (01) ==
LOC: LABWHC1 10:15
PROVIDERS: ATTEND Internal Medicine Endocrinology, Diabetes & Metabolism
DX: E11.9 Type 2 diabetes mellitus without complications (principal); D63.1 Anemia in chronic kidney disease; N18.3 Chronic kidney disease, stage 3 (moderate); N39.0 Urinary tract infection, site not specified; R80.9 Proteinuria, unspecified; N25.81 Secondary hyperparathyroidism of renal origin; E55.9 Vitamin D deficiency, unspecified; M10.9 Gout, unspecified
CPT/HCPCS: 36415; 80053; 80061; 81001; 82043; 82570; 82728; 83036; 83540; 83550; 83735; 83970; 84100; 84156; 84443; 84550; 85027

== ENCOUNTER → 2019-04-30 | Outpatient (CLI) | payer MEDICARE, OTHER ==
--- NOTE | 2019-04-30 14:50 | NM ---
EXAMINATION TYPE: NM bone scan whole body DATE OF EXAM: 04/30/2019 COMPARISON: Chest x-ray 03/13/2019, pelvis 02/25/2019, thoracic spine 02/10/2019, CT sinus 04/03/2018 HISTORY: Back pain Delayed whole-body scanning was performed following the injection of 25.2 mCi Tc 99m MDP. Images acq uired 3 hours post injection. FINDINGS: There is photopenic defect present at the left knee consistent with knee arthroplasty, some mild denice articular uptake may be postoperative. Uptake within the feet, right knee, shoulders, sternoclavicula r joints is likely due to degenerative change. Mild uptake in the lumbar spine, thoracic spine is als o likely degenerative. Uptake in the left maxillary region may be due to underlying sinus disease. Up take in the maxilla and mandible may be due to periodontal disease. IMPRESSION: No evident metastatic disease. Degenerative disc disease, chronic sinusitis.
== END | disposition home or self-care (01) ==
LOC: RADNMMAIN 10:14
PROVIDERS: ATTEND Internal Medicine Hematology & Oncology
DX: J32.9 Chronic sinusitis, unspecified (principal); Z88.5 Allergy status to narcotic agent; Z88.1 Allergy status to other antibiotic agents
CPT/HCPCS: 78306; A9503

== ENCOUNTER 2019-05-12 12:16 | Day surgery (SDC) | payer MEDICARE, OTHER ==
[2019-05-12 12:30] VITALS: BP 134/62; PULSE 90; RESP 20; TEMP 98
--- NOTE | 2019-05-12 14:03 | US ---
ULTRASOUND GUIDED CORE BIOPSY LEFT GROIN LYMPH NODE: CLINICAL HISTORY: left groin lymph node FINDINGS: The procedure was explained to the patient. The risks, complications, benefits and alternatives were discussed and any questions were answered. Informed consent was obtained. Patient was placed supin e on the ultrasound table and prepped and draped in the usual sterile fashion. Utilizing a 18 gauge needle, 4 passes were made into the left groin lymph node. Patient was stable throughout the procedure. Pathology is pending. All elements of maximal barrier technique were utilized. IMPRESSION: 1. Successful ultrasound guided core biopsy left groin lymph node.
== END 2019-05-12 13:35 | disposition home or self-care (01) ==
LOC: RADPROMAIN 12:16
PROVIDERS: ATTEND Internal Medicine Hematology & Oncology
DX: R59.0 Localized enlarged lymph nodes (principal)
CPT/HCPCS: 38505; 76942; 88305

== ENCOUNTER → 2019-05-27 | Outpatient (CLI) | payer MEDICARE, OTHER ==
--- NOTE | 2019-05-27 15:31 | MR ---
MR left femur and thigh with and without contrast HISTORY: Large lymph nodes left hip area, swelling for 4 months Multiplanar multisequence and postcontrast images obtained through the proximal left femur region fol lowing 8 cc Gadavist IV Visualized bone marrow signal is normal. Muscular signal is normal. Subcutis fat shows an unremarkabl e appearance. Benign-appearing lymph nodes are present at the site of patient's overlying marker. No evident hip joint effusion. Articular cartilage signal is maintained. No abnormal enhancement followi ng contrast administration. Nabothian cysts incidentally noted within the cervix. Possible fibroid wi thin the uterus. There is some enhancement at the origin of the rectus femoris muscle, some increased signal present at the tendon origin. IMPRESSION: Benign appearing lymph nodes. There may be tendinosis, partial tear at the origin of the rectus femoris from the anterior inferior iliac spine.
== END | disposition home or self-care (01) ==
LOC: RADMRIMAIN 11:18
PROVIDERS: ATTEND Internal Medicine Hematology & Oncology
DX: R22.42 Localized swelling, mass and lump, left lower limb (principal)
CPT/HCPCS: 73720; A9585

== ENCOUNTER → 2019-06-05 | Outpatient (CLI) | payer MEDICARE, OTHER ==
[2019-06-05 14:35] LABS: HCT 40.8 % (34.0-46.0); HGB 14.4 gm/dL (11.4-16.0); MCH 30.4 pg (25.0-35.0); MCHC 35.2 g/dL (31.0-37.0); MCV 86.2 fL (80.0-100.0); Mean Platelet Volume 7.7; Platelet Count 263 k/uL (150-450); RBC 4.73 m/uL (3.80-5.40); RDW 13.1 % (11.5-15.5); WBC 7.8 k/uL (3.8-10.6)
[2019-06-05 14:55] LABS: Appearance,Urine Cloudy (Clear); Bacteria,Urine Occasional /hpf; Bilirubin,Urine Negative (Negative); Blood,Urine Negative (Negative); Color,Urine Yellow; Glucose,Urine (UA) Negative (Negative); Hyaline Casts,Urine 8 /lpf (0-2); Ketones,Urine Negative (Negative); Leukocyte Esterase,Urine Large (Negative); Mucus,Urine Few /hpf; Nitrite,Urine Negative (Negative); Protein,Urine Trace (Negative); RBC,Urine 4 /hpf (0-5); Specific Gravity,Urine 1.016 (1.001-1.035); Squamous Epithelial Cell,Urine 50 /hpf (0-4); Urobilinogen,Urine <2.0 mg/dL (<2.0); WBC,Urine 22 /hpf (0-5)
[2019-06-05 18:37] LABS: % Iron Saturation 24.73 (12.00-45.00); African American GFR (CKD) 58.5 (60.0-200.0); Albumin 4.7 g/dL (3.80-4.90); Albumin/Globulin Ratio 2.76 (1.60-3.17); Anion Gap 5.5 mmol/L (4.00-12.00); BUN/Creat Ratio 15.45 Ratio (12.00-20.00); Calcium 9.9 mg/dL (8.7-10.3); Carbon Dioxide 29.5 mmol/L (21.6-31.8); Globulin 1.7 g/dL (1.6-3.3); Magnesium 1.8 mg/dL (1.5-2.4); Non-African American GFR(CKD) 50.5 (60.0-200.0); Phosphorus 3.5 mg/dL (2.4-5.1); Potassium 4.2 mmol/L (3.5-5.5); Total Bilirubin 0.7 mg/dL (0.3-1.2); Total Protein 6.4 g/dL (6.2-8.2); Uric Acid 5.6 mg/dL (2.9-7.7)
[2019-06-05 18:45] LABS: Ferritin 217.7 ng/mL (10.0-291.0)
[2019-06-05 18:56] LABS: Creatinine,Urine Random 132.1 mg/dL
[2019-06-05 18:59] LABS: Total Protein,Urine Random 33.3 mg/dL (0.0-13.5)
== END | disposition home or self-care (01) ==
LOC: LABWHC1 13:56
PROVIDERS: ATTEND Nurse Practitioner Family
DX: N39.0 Urinary tract infection, site not specified (principal); N18.3 Chronic kidney disease, stage 3 (moderate); D63.1 Anemia in chronic kidney disease; N25.81 Secondary hyperparathyroidism of renal origin; E55.9 Vitamin D deficiency, unspecified; M10.9 Gout, unspecified; R80.9 Proteinuria, unspecified
CPT/HCPCS: 36415; 80053; 81001; 82570; 82728; 83540; 83550; 83735; 83970; 84100; 84156; 84550; 85027

== ENCOUNTER → 2019-06-24 | Outpatient (CLI) | payer MEDICARE, OTHER ==
--- NOTE | 2019-06-24 18:58 | US ---
EXAMINATION TYPE: US kidneys/renal and bladder DATE OF EXAM: 06/24/2019 COMPARISON: 01/03/2017 CLINICAL HISTORY: N20.0 Left nephrolithiasis. h/o renal stones from last exam, CT the day prior then last exam showed no stones, no symptoms, no hematuria EXAM MEASUREMENTS: Right Kidney: 9.6 x 4.3 x 3.5 cm Left Kidney: 9.9 x 4.6 x 5.5 cm Right Kidney: probable column of Maxi, otherwise no hydronephrosis or nephrolithiasis seen Left Kidney: No hydronephrosis or nephrolithiasis seen Bladder: wnl Bilateral Jets seen: yes IMPRESSION: 1. Cortical prominence involving the right kidney is stable from the prior exam and most typical of a column of Maxi. 2. No hydronephrosis or nephrolithiasis.
== END | disposition home or self-care (01) ==
LOC: RADUSWWP 15:52
PROVIDERS: ATTEND Internal Medicine Nephrology
DX: N20.0 Calculus of kidney (principal)
CPT/HCPCS: 76770

== ENCOUNTER → 2019-11-10 | Outpatient (CLI) | payer MEDICARE, OTHER ==
--- NOTE | 2019-11-10 11:39 | US ---
EXAMINATION TYPE: US groin LT DATE OF EXAM: 11/10/2019 COMPARISON: Ultrasound guided biopsy dated 05/12/2019 CLINICAL HISTORY: R59.0 Localized enlarged lymph nodes, Z71.3. Biopsied 05/12/20, negative for lympho ma. TECHNIQUE/FINDINGS: Targeted left groin ultrasound was performed utilizing grayscale imaging and colo r imaging to reassess for lymph nodes. Left groin lymph node measures 1.5 x 0.7 x 1.7cm. This previously measured 1.4 x 0.7 cm on the biopsi ed 05/12/2019. This is nonenlarged and maintains a normal fatty hilum with no cortical thickening. Adj acent morphologically normal lymph nodes are also seen. IMPRESSION: Morphologically lymph nodes in the left groin that are not enlarged. The previously biop sied negative lymph node demonstrates no significant interval growth.
== END | disposition home or self-care (01) ==
LOC: RADUSWWP 10:54
PROVIDERS: ATTEND Internal Medicine Hematology & Oncology
DX: R59.0 Localized enlarged lymph nodes (principal); Z71.3 Dietary counseling and surveillance

== ENCOUNTER 2019-11-12 06:22 | Day surgery (SDC) | payer MEDICARE, OTHER ==
[2019-11-11 12:18] VITALS: BMI 30.9
[~2019-11-12 06:22] MED LIST: LACTATED RINGERS 1,000 ML IV SCH; MOXIFLOXACIN HCL 0.5% DROPS 3 ML BTL OP ONE; TETRACAINE 0.5% OPHTH (PF) DROPS 4 ML BTL OP ONE; TIMOLOL 0.5% OPHTH DROPS 5 ML BTL OP ONE; fentaNYL (PF) 50 MCG/ML 2 ML AMP IV PRN
[2019-11-12] MEDS: CYCLOPENTOLATE 1% OPHTH SOLN 2 ML BTL OP ONE ×3 (06:48→07:00)
[2019-11-12] MEDS: PHENYLEPHRINE 2.5% OPHTH DRP 2ML OP NR ×3 (06:51→07:03)
[2019-11-12 06:54] LABS: Glucose,Whole Blood 100 mg/dL (75-99)
[2019-11-12 06:57] VITALS: TEMP 97.5
[2019-11-12] MEDS ORDERED: BALANCED SALT IRRIG SOLN COMB2 15 ML IRRIG.SOLN IRRIGATION ONE (07:25)
[2019-11-12] MEDS ORDERED: LIDOCAINE 1% (PF) 10MG/ML VIAL SQ ONE (07:25)
[2019-11-12] MEDS ORDERED: HYALURONATE SODIUM INTRAOCULAR 1 EACH SYRINGE (12MG/ML) INTRAOCULA ONE (07:25)
[2019-11-12] MEDS ORDERED: fentaNYL (PF) 50 MCG/ML 2 ML AMP ONE (07:27)
[2019-11-12] MEDS ORDERED: MIDAZOLAM 2 MG/2 ML VIAL ONE (07:27)
[2019-11-12] MEDS ORDERED: EPINEPHrine (PF) 0.3 ML in BALANCED SALT IRRIG SOLN COMB2 500 ML IRRIGATION ONE (07:43)
[2019-11-12] MEDS ORDERED: EPINEPHrine 1 MG/ML 1 ML AMP IRRIGATION ONE (07:52)
--- NOTE | 2019-11-12 08:03 | P.OP ---
Date of Procedure: 11/12/19 Preoperative Diagnosis: NS & CS & PXS Postoperative Diagnosis: same Procedure(s) Performed: PIOL, OS Implants: [id number] 19.50 Anesthesia: MAC Surgeon: Carloz Cortés Pathology: none sent Condition: stable Disposition: same day Indications for Procedure: blurry vision Operative Findings: no complications
[2019-11-12 08:19] VITALS: BP 105/55; PULSE 69; RESP 18
--- NOTE | 2019-11-12 18:02 | OP ---
OPERATIVE REPORT DATE OF SURGERY: November 12, 2019. PROCEDURE PERFORMED: Phacoemulsification of cataract and intraocular lens implant of the left eye. 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 POSTOPERATIVE DIAGNOSIS: Nuclear sclerosis and pseudoexfoliation. SURGEON: Dr. Carloz Cortés. ANESTHESIA: Topical. ESTIMATED BLOOD LOSS: None. SPECIMEN: Taken none. NARRATIVE: After obtaining the appropriate consent, the patient was brought to the operating room. There she was placed under cardiac monitoring, prepped and draped in the usual sterile manner. She was approached from her left temporal side and at the 5 o'clock position, a 1.1 mm MVR blade was used to create a paracentesis port. Through this opening, 1% Xylocaine MPF and 1:1000 epinephrine MPF and balanced salt solution ratio 1:2:1 was instilled into the anterior chamber. This was followed by stabilization of the anterior chamber with Amvisc. At the 3 o'clock position, a 2.5 mm keratome was used to create a self-sealing corneal flap incision. Through this opening, a cystotome was introduced to begin a continuous tear capsulorrhexis which was completed using the Utrata forceps. Hydrodissection and hydrodelineation of the lens was accomplished with balanced salt solution. Phacoemulsification of the lens utilizing phaco chop was accomplished in 15 seconds at 11% power. Additional Xylocaine epinephrine mixture was placed into the anterior chamber. This was followed by removal of the remaining cortex under irrigation and aspiration as well as careful polishing of the posterior capsule in capsule vacuum mode. Additional Amvisc was then used to stabilize the capsular bag and a 13 mm capsular tension ring, model 276 US1G was placed into the capsular bag without difficulty. Following the placement of the ring, an intra-ocular lens made by Bausch and Lomb model MX 60E 19.5 diopter was placed in the capsular bag as well with no difficulty. The remaining viscoelastic was then removed from in and around the intra-ocular lens and the eye was brought to normal intraocular pressures through the paracentesis port with balanced salt solution. The wounds were checked for watertight integrity and she then received 2 drops of 0.5% timolol followed by 2 drops of moxifloxacin, was then lightly patched and shielded in the usual manner. There were no complications from the procedure. She tolerated the procedure well, was returned to outpatient recovery in good condition. MMODL / IJN: [id number] /
== END 2019-11-12 08:33 | disposition home or self-care (01) ==
LOC: OR 06:22
PROVIDERS: ATTEND Ophthalmology
DX: H25.13 Age-related nuclear cataract, bilateral (principal); H26.8 Other specified cataract; H40.003 Preglaucoma, unspecified, bilateral; H04.129 Dry eye syndrome of unspecified lacrimal gland; H16.143 Punctate keratitis, bilateral; H52.02 Hypermetropia, left eye; H52.223 Regular astigmatism, bilateral; H43.393 Other vitreous opacities, bilateral; H52.4 Presbyopia; H00.023 Hordeolum internum right eye, unspecified eyelid; H00.026 Hordeolum internum left eye, unspecified eyelid; E89.0 Postprocedural hypothyroidism; I48.91 Unspecified atrial fibrillation; E11.9 Type 2 diabetes mellitus without complications; E78.00 Pure hypercholesterolemia, unspecified; J45.909 Unspecified asthma, uncomplicated; M19.90 Unspecified osteoarthritis, unspecified site; I11.9 Hypertensive heart disease without heart failure; K21.9 Gastro-esophageal reflux disease without esophagitis; F32.9 Major depressive disorder, single episode, unspecified; N28.9 Disorder of kidney and ureter, unspecified; E06.3 Autoimmune thyroiditis; Z91.048 Other nonmedicinal substance allergy status; Z88.5 Allergy status to narcotic agent; Z88.1 Allergy status to other antibiotic agents; Z88.8 Allergy status to other drugs, medicaments and biological substances; Z90.49 Acquired absence of other specified parts of digestive tract; Z98.890 Other specified postprocedural states; Z79.82 Long term (current) use of aspirin; Z79.84 Long term (current) use of oral hypoglycemic drugs; Z79.890 Hormone replacement therapy; Z79.899 Other long term (current) drug therapy; Z79.51 Long term (current) use of inhaled steroids; Z97.3 Presence of spectacles and contact lenses; Z82.49 Family history of ischemic heart disease and other diseases of the circulatory system; Z82.61 Family history of arthritis; Z88.2 Allergy status to sulfonamides; Z91.041 Radiographic dye allergy status
CPT/HCPCS: 66982; L8610; C1780; J2250; J0171 ×2; J3010; J2001

== ENCOUNTER → 2019-11-25 | Outpatient (CLI) | payer MEDICARE, OTHER ==
[2019-11-25 09:32] LABS: HCT 41.3 % (34.0-46.0); HGB 13.5 gm/dL (11.4-16.0); MCH 28.8 pg (25.0-35.0); MCHC 32.7 g/dL (31.0-37.0); MCV 87.9 fL (80.0-100.0); Mean Platelet Volume 7.2; Platelet Count 196 k/uL (150-450); RDW 12.6 % (11.5-15.5); WBC 7.5 k/uL (3.8-10.6)
[2019-11-25 09:37] LABS: Appearance,Urine Slightly Cloudy (Clear); Bacteria,Urine Rare /hpf; Bilirubin,Urine Negative (Negative); Color,Urine Yellow; Glucose,Urine (UA) Negative (Negative); Ketones,Urine Negative (Negative); Mucus,Urine Rare /hpf; Protein,Urine Negative (Negative); RBC,Urine 1 /hpf (0-5); Squamous Epithelial Cell,Urine 5 /hpf (0-4); WBC,Urine 1 /hpf (0-5)
[2019-11-25 09:38] LABS: Blood,Urine Negative (Negative); Leukocyte Esterase,Urine Negative (Negative); Nitrite,Urine Negative (Negative); Urobilinogen,Urine <2.0 mg/dL (<2.0)
[2019-11-25 09:44] LABS: Protein/Creatinine Ratio,Urine 0.096
[2019-11-25 17:27] LABS: % Iron Saturation 16.88 (12.00-45.00); African American GFR (CKD) 65.6 (60.0-200.0); Albumin 4.2 g/dL (3.80-4.90); Albumin/Globulin Ratio 2.33 (1.60-3.17); Anion Gap 9.1 mmol/L (4.00-12.00); Calcium 9.1 mg/dL (8.7-10.3); Carbon Dioxide 25.9 mmol/L (21.6-31.8); Globulin 1.8 g/dL (1.6-3.3); Magnesium 1.7 mg/dL (1.5-2.4); Non-African American GFR(CKD) 56.6 (60.0-200.0); Phosphorus 3.5 mg/dL (2.4-5.1); Potassium 4.1 mmol/L (3.5-5.5); Total Bilirubin 0.6 mg/dL (0.3-1.2); Uric Acid 5.3 mg/dL (2.9-7.7)
[2019-11-25 17:36] LABS: Ferritin 161.8 ng/mL (10.0-291.0)
== END | disposition home or self-care (01) ==
LOC: LABWHC1 08:34
PROVIDERS: ATTEND Nurse Practitioner Family
DX: N18.3 Chronic kidney disease, stage 3 (moderate) (principal); D63.1 Anemia in chronic kidney disease; N39.0 Urinary tract infection, site not specified; N25.81 Secondary hyperparathyroidism of renal origin; M10.9 Gout, unspecified; E55.9 Vitamin D deficiency, unspecified; R80.9 Proteinuria, unspecified
CPT/HCPCS: 36415; 80053; 81001; 82306; 82570; 82728; 83540; 83550; 83735; 83970; 84100; 84156; 84550; 85027

== ENCOUNTER 2019-11-26 07:31 | Day surgery (SDC) | payer MEDICARE, OTHER ==
[2019-11-25 08:30] VITALS: BMI 30.9
[~2019-11-26 07:31] MED LIST changes: +CYCLOPENTOLATE 1% OPHTH SOLN 2 ML BTL OP ONE; +PHENYLEPHRINE 2.5% OPHTH DRP 2ML OP NR; +Pre Op ABX Message 1 EACH MISC MISCELLANE ONE; -fentaNYL (PF) 50 MCG/ML 2 ML AMP IV PRN
[2019-11-26 07:51] VITALS: TEMP 98.2
[2019-11-26] MEDS: CYCLOPENTOLATE 1% OPHTH SOLN 2 ML BTL RIGHT EYE ONE ×3 (07:55→08:07)
[2019-11-26] MEDS: PHENYLEPHRINE 2.5% OPHTH DRP 2ML RIGHT EYE SCH ×3 (07:58→08:18)
[2019-11-26 08:06] LABS: Glucose,Whole Blood 121 mg/dL (75-99)
[2019-11-26 08:06] LABS: Glucose,Whole Blood 112 mg/dL (75-99)
[2019-11-26] MEDS ORDERED: LIDOCAINE 1% (10MG/ML) FOR IV START INTRADERMA ONE (08:19)
[2019-11-26] MEDS ORDERED: LACTATED RINGERS 1,000 ML IV ONE (08:19)
[2019-11-26] MEDS ORDERED: ONDANSETRON 4 MG/2 ML VIAL ONE (08:22)
[2019-11-26] MEDS ORDERED: ONDANSETRON 4 MG/2 ML VIAL IVP ONE (08:24)
[2019-11-26] MEDS ORDERED: MIDAZOLAM 2 MG/2 ML VIAL ONE (09:26)
[2019-11-26] MEDS ORDERED: fentaNYL (PF) 50 MCG/ML 2 ML AMP ONE (09:26)
[2019-11-26] MEDS ORDERED: EPINEPHrine (PF) 0.3 ML in BALANCED SALT IRRIG SOLN COMB2 500 ML IRRIGATION ONE (09:34)
[2019-11-26] MEDS ORDERED: HYALURONATE SODIUM INTRAOCULAR 1 EACH SYRINGE (12MG/ML) INTRAOCULA ONE (09:36)
[2019-11-26] MEDS ORDERED: LIDOCAINE 1% (PF) 10MG/ML VIAL SQ ONE (09:36)
[2019-11-26] MEDS ORDERED: BALANCED SALT IRRIG SOLN COMB2 15 ML IRRIG.SOLN IRRIGATION ONE (09:36)
--- NOTE | 2019-11-26 10:02 | P.OP ---
Date of Procedure: 11/26/19 Preoperative Diagnosis: NS & CS & PXs Postoperative Diagnosis: same Procedure(s) Performed: PIOL & CTR implant, right eye Implants: MX60 18.50 & CTR 13.00 Anesthesia: MAC Surgeon: Carloz Cortés Estimated Blood Loss (ml): 0 Pathology: none sent Condition: stable Disposition: same day Indications for Procedure: blurry vision Operative Findings: no complications
[2019-11-26 10:25] VITALS: BP 109/71; PULSE 66; RESP 16
--- NOTE | 2019-11-27 11:59 | OP ---
OPERATIVE REPORT DATE OF SURGERY: November 26, 2019. PROCEDURE: Phacoemulsification of cataract and intraocular lens implant of the right eye with capsular tension ring insertion, right eye. PREOPERATIVE DIAGNOSES: Nuclear sclerosis, cortical sclerosis, pseudoexfoliation of the right eye. POSTOPERATIVE DIAGNOSES: Nuclear sclerosis, cortical sclerosis, pseudoexfoliation of the right eye. SURGEON: Dr. Carloz Cortés. ANESTHESIA: MAC. ESTIMATED BLOOD LOSS: None. SPECIMEN: Taken none. NARRATIVE: After obtaining the appropriate consent, the patient was brought to the operating room. There she was placed under cardiac monitoring, prepped and draped in usual sterile manner. She was approached from the right temporal side and at the 11 o'clock position an MVR blade was used to create a paracentesis port through this opening 1% Xylocaine MPF 50 50 mix with balanced salt solution was injected into the anterior chamber. This was followed by stabilization of the anterior chamber with Amvisc. At the 9 o'clock position, 2.5 mm keratome was used to create a self-sealing corneal flap incision. Through this opening, a cystotome was introduced to begin a continuous tear capsulorrhexis which was completed using the Utrata forceps. Hydrodissection and hydrodelineation of the lens was accomplished with balanced salt solution. Phacoemulsification of the lens utilizing phaco chop was accomplished in 20.89 seconds at 14% power. Additional Xylocaine MPF was instilled into the anterior chamber. This was followed by removal of the remaining cortex under irrigation aspiration as well as careful polishing of the posterior capsule in the capsule vacuum mode. Amvisc was then used to stabilize the capsular bag and a Bausch and Lomb capsular tension ring CTR 11 L was then inserted into the capsular bag without difficulty. This was followed by insertion of a Bausch and Lomb MX 60 18.5 diopter posterior chamber intraocular lens was also introduced into the capsular bag without difficulty. The remaining viscoelastic was then removed from in and around the intraocular lens as well as the anterior chamber. The eye was then brought to normal intraocular pressures through the paracentesis port and the wound was confirmed watertight. She then received 2 drops of 0.5% timolol followed by 2 drops of moxifloxacin and then she was lightly patched and shielded in the usual manner. There were no complications with the procedure. She tolerated the procedure well and was returned to outpatient recovery in good condition. MMODL / IJN: [id number] /
== END 2019-11-26 10:43 | disposition home or self-care (01) ==
LOC: OR 07:31
PROVIDERS: ATTEND Ophthalmology
DX: H25.11 Age-related nuclear cataract, right eye (principal); H25.011 Cortical age-related cataract, right eye; H26.8 Other specified cataract; H40.003 Preglaucoma, unspecified, bilateral; H04.129 Dry eye syndrome of unspecified lacrimal gland; H16.143 Punctate keratitis, bilateral; H52.02 Hypermetropia, left eye; H52.223 Regular astigmatism, bilateral; H00.023 Hordeolum internum right eye, unspecified eyelid; H43.393 Other vitreous opacities, bilateral; H00.026 Hordeolum internum left eye, unspecified eyelid; H52.4 Presbyopia; Z98.42 Cataract extraction status, left eye; Z96.1 Presence of intraocular lens; I48.91 Unspecified atrial fibrillation; E78.5 Hyperlipidemia, unspecified; J45.909 Unspecified asthma, uncomplicated; E11.9 Type 2 diabetes mellitus without complications; E06.3 Autoimmune thyroiditis; F32.9 Major depressive disorder, single episode, unspecified; M19.90 Unspecified osteoarthritis, unspecified site; E89.0 Postprocedural hypothyroidism; E78.00 Pure hypercholesterolemia, unspecified; K21.9 Gastro-esophageal reflux disease without esophagitis; Z90.89 Acquired absence of other organs; Z79.82 Long term (current) use of aspirin; Z79.890 Hormone replacement therapy; Z79.899 Other long term (current) drug therapy; Z88.5 Allergy status to narcotic agent; Z88.2 Allergy status to sulfonamides; Z88.8 Allergy status to other drugs, medicaments and biological substances; Z91.041 Radiographic dye allergy status; Z88.1 Allergy status to other antibiotic agents; Z90.49 Acquired absence of other specified parts of digestive tract; Z98.890 Other specified postprocedural states; Z79.51 Long term (current) use of inhaled steroids; Z97.3 Presence of spectacles and contact lenses; Z82.49 Family history of ischemic heart disease and other diseases of the circulatory system; Z82.61 Family history of arthritis
CPT/HCPCS: 66982; C1780; J2250; J2405; J0171; J3010; J2001

== ENCOUNTER → 2019-12-02 | Outpatient (CLI) | payer MEDICARE, OTHER ==
[2019-12-02 13:56] LABS: Basophils % (A) 0 %; Eosinophils # (A) 0.2 k/uL (0-0.7); Eosinophils % (A) 2 %; HCT 44.5 % (34.0-46.0); HGB 14.9 gm/dL (11.4-16.0); Lymphocytes % (A) 24 %; MCHC 33.6 g/dL (31.0-37.0); MCV 89.3 fL (80.0-100.0); Mean Platelet Volume 7.5; Monocytes # (A) 0.4 k/uL (0-1.0); Monocytes % (A) 5 %; Neutrophils # (A) 5.7 k/uL (1.3-7.7); Neutrophils % (A) 67 %; Platelet Count 222 k/uL (150-450); RBC 4.98 m/uL (3.80-5.40); WBC 8.5 k/uL (3.8-10.6)
[2019-12-02 18:49] LABS: African American GFR (CKD) 47.8 (60.0-200.0); Albumin 4.5 g/dL (3.80-4.90); Albumin/Globulin Ratio 2.25 (1.60-3.17); Anion Gap 2.9 mmol/L (4.00-12.00); BUN/Creat Ratio 13.08 Ratio (12.00-20.00); Carbon Dioxide 32.1 mmol/L (21.6-31.8); Chol/HDL Ratio 3.8; Non-African American GFR(CKD) 41.2 (60.0-200.0); Potassium 4.6 mmol/L (3.5-5.5); Total Bilirubin 0.9 mg/dL (0.2-1.2); Total Protein 6.5 g/dL (6.2-8.2)
[2019-12-02 18:56] LABS: T4, Free (Free Thyroxine) 1.3 ng/dL (0.80-1.80)
[2019-12-02 19:22] LABS: Urine Creatinine 144.5 mg/dL
[2019-12-02 20:00] LABS: Hemoglobin A1C 5.9 % (4.0-6.0)
== END | disposition home or self-care (01) ==
LOC: LABWHC1 11:47
PROVIDERS: ATTEND Internal Medicine Endocrinology, Diabetes & Metabolism
DX: E11.9 Type 2 diabetes mellitus without complications (principal); E78.2 Mixed hyperlipidemia; I10 Essential (primary) hypertension
CPT/HCPCS: 36415; 80053; 80061; 82043; 82570; 83036; 84439; 84443; 85025

== ENCOUNTER 2020-02-16 06:03 | Day surgery (SDC) | payer MEDICARE, OTHER ==
[2020-02-11 15:07] VITALS: BMI 31.9
[~2020-02-16 06:03] MED LIST changes: +ACETAMINOPHEN TAB 500 MG TAB PO ONE; -CYCLOPENTOLATE 1% OPHTH SOLN 2 ML BTL OP ONE; +DEXAMETHASONE SOD PHOSPHATE 10 MG/ML 1 ML VIAL IV ONE; +HEPARIN SODIUM,PORCINE 5,000 UNIT/ML 1 ML VIAL SQ ONE; -MOXIFLOXACIN HCL 0.5% DROPS 3 ML BTL OP ONE; +ONDANSETRON 4 MG/2 ML VIAL IVP ONE; -PHENYLEPHRINE 2.5% OPHTH DRP 2ML OP NR; -Pre Op ABX Message 1 EACH MISC MISCELLANE ONE; -TETRACAINE 0.5% OPHTH (PF) DROPS 4 ML BTL OP ONE; -TIMOLOL 0.5% OPHTH DROPS 5 ML BTL OP ONE; +fentaNYL (PF) 50 MCG/ML 2 ML AMP IV PRN
[2020-02-16 07:11] LABS: Glucose,Whole Blood 134 mg/dL (75-99)
--- NOTE | 2020-02-16 07:43 | P.GSHP ---
History of Present Illness H&P Date: 02/16/20 Chief Complaint: Left inguinal adenopathy 74-year-old female seen in early January. Has complaints of a bulge with pain left groin. Ultrasound shows a 1.7 cm lymph node. She was seen by oncology. They are requesting a excisional biopsy. Apparently this was biopsied previ ously through a needle technique with benign results. Mass does not fluctuate in size. Pain has improved. Past Medical History Past Medical History: Atrial Fibrillation, Asthma, Diabetes Mellitus, GERD/Reflux, Hyperlipidemia, Thyroid Disorder Additional Past Medical History / Comment(s): lo, back pain DDD SPINAL STENOSIS, KIDNEY STONES, UTI,vertigo History of Any Multi-Drug Resistant Organisms: None Reported Past Surgical History: Adenoidectomy, Breast Surgery, Section, Cholecystectomy, Joint Replacement, Orthopedic Surgery, Tonsillectomy Additional Past Surgical History / Comment(s): thyroidectomy, LT KNEE REPLACEMENT(HAD SEVERAL SX ON THAT KNEE, 1 ST ONE HAD A TORN MENISCUS HAD SX THEN GOT INFECTION /SEPTIC HAD TO REOPEN IT.MILES CARPAL TUNNEL, Cold Knife Colonization, 3 RT BREAST LUMPS REMOVED ALL BENIGN, STERO BIOPSY FOR SUSPICIUS CALCIFICATION BUT CAME BACK BENIGN,MILES cataracts Past Anesthesia/Blood Transfusion Reactions: Motion Sickness, Postoperative Nausea & Vomiting (PONV) Additional Past Anesthesia/Blood Transfusion Reaction / Comment(s): no hx blood transfusion Smoking Status: Never smoker - Past Family History Daughter(s) Additional Family Medical History / Comment(s): has 2 sons, daughter is Mother Additional Family Medical History / Comment(s): Mother at age 86 with history of hyperlipidemia. She had leg infection that became septic and she from this and acute kidney injury. Medications and Allergies Home Medications Medication Instructions Recorded Confirmed Type Aspirin 81 mg PO HS 11/03/14 02/16/20 History Cholecalciferol [Vitamin D3 (25 5,000 unit PO DAILY 11/03/14 02/11/20 History Mcg = 1000 Iu)] FLUoxetine HCL [PROzac] 20 mg PO QAM 11/03/14 02/16/20 History Digoxin [Lanoxin] 125 mcg PO DAILY 07/27/16 02/16/20 History Estradiol [Vagifem] 10 mcg VAGINAL Q72H 07/27/16 02/16/20 History Levothyroxine Sodium [Synthroid] 112 mcg PO MOTUWETHFRSA 07/27/16 02/16/20 History busPIRone HCL 15 mg PO HS 07/27/16 02/16/20 History Ipratropium/Albuterol Sulfate 1 puff INHALATION RT-QID PRN 11/29/17 02/16/20 History [Combivent Respimat Inhaler] Magnus Red 500 mg PO DAILY 11/29/17 02/11/20 History Metoprolol Succinate [Toprol XL] 50 mg PO BID 11/29/17 02/16/20 History Mag/Aluminum/Sod Bicarb/Alginc 1 tab PO DAILY PRN 02/09/19 02/16/20 History [Gaviscon 80-14.2 mg Tab Chew] Metoprolol Succinate (ER) [Toprol 25 mg PO 1600 02/09/19 02/16/20 History XL] Pravastatin Sodium [Pravachol] 20 mg PO DAILY 02/09/19 02/16/20 History Fran/D3/Mag11/Zinc/Doctor Osteopathic/Felipe/Bor 1 tab PO DAILY 05/02/19 02/16/20 History [Caltrate 600+D Plus Tablet] Fenofibrate Nanocrystallized 145 mg PO DAILY 05/02/19 02/16/20 History [Tricor] Fluticasone/Salmeterol [Advair 1 inhalation PO BID 11/11/19 02/16/20 History 500-50 Diskus] Sucralfate [Carafate] 1 gm PO DAILY PRN 11/11/19 02/16/20 History sitaGLIPtin [Januvia] 50 mg PO DAILY 11/11/19 02/16/20 History Acetaminophen [Tylenol] 650 mg PO Q4H PRN 02/11/20 02/16/20 History Allergies Allergy/AdvReac Type Severity Reaction Status Date / Time atorvastatin calcium Allergy Itching Verified 02/16/20 06:51 [From Lipitor] codeine AdvReac Nausea Verified 02/16/20 06:51 erythromycin base AdvReac Abdominal Verified 02/16/20 06:51 Pain Iodinated Contrast Media AdvReac KIDNEY Verified 02/16/20 06:51 [Iodinated Contrast Media - ISSUES--nephro Oral and] does not want morphine AdvReac Nausea Verified 02/16/20 06:51 sulfamethoxazole AdvReac kidney Verified 02/16/20 06:51 [From Bactrim] issues--nephro does not want trimethoprim [From Bactrim] AdvReac kidney Verified 02/16/20 06:51 issues--nephro does not want yeast, dried [yeast] AdvReac sinus Verified 02/16/20 06:51 issues Surgical - Exam Vital Signs Temp Pulse Resp BP Pulse Ox 99.2 F 72 16 111/52 96 02/16/20 07:04 02/16/20 07:04 02/16/20 07:04 02/16/20 07:04 02/16/20 07:04 Physical exam: General: Well-developed, well-nourished HEENT: Normocephalic, sclerae nonicteric Abdomen: Nontender, nondistended, left inguinal adenopathy Extremities: No edema Neuro: Alert and oriented Results - Labs Abnormal Lab Results - Last 24 Hours (Table) 02/16/20 Range/Units 07:06 POC Glucose (mg/dL) 134 H (75-99) mg/dL Assessment and Plan (1) Inguinal adenopathy Narrative/Plan: Will proceed with excisional lymph node biopsy left inguinal region. Risks of bleeding, infection, seroma, scarring, wound, pain reviewed. She understands and wishes to proceed. We also discussed that if a hernia was found present as would be repaired simultaneously possibly with mesh. Current Visit: Yes Status: Acute Code(s): R59.0 - LOCALIZED ENLARGED LYMPH NODES SNOMED Code(s): 159328845
[2020-02-16] MEDS ORDERED: SUCCINYLCHOLINE CHLORIDE 100 MG/5 ML SYR IV ONE (07:50)
[2020-02-16] MEDS ORDERED: PROPOFOL 10 MG/ML 20 ML VIAL IV ONE (07:50)
[2020-02-16] MEDS ORDERED: fentaNYL (PF) 50 MCG/ML 2 ML AMP ONE (07:50)
[2020-02-16] MEDS ORDERED: KETOROLAC 15 MG/ML 1 ML VIAL ONE (07:50)
[2020-02-16] MEDS ORDERED: LIDOCAINE 1% INJ 10MG/ML (20 ML MDV) ONE (07:50)
[2020-02-16] MEDS ORDERED: MIDAZOLAM 2 MG/2 ML VIAL ONE (07:50)
[2020-02-16] MEDS ORDERED: LIDOCAINE 1%-EPI 1:100,000 20 ML VIAL SQ ONE (08:23)
[2020-02-16] MEDS ORDERED: NALOXONE 0.4 MG/ML 1 ML VIAL IV PRN (08:30)
--- NOTE | 2020-02-16 08:34 | P.OP ---
Date of Procedure: 02/16/20 Procedure(s) Performed: PREOPERATIVE DIAGNOSIS: Left inguinal adenopathy POSTOPERATIVE DIAGNOSIS: Same PROCEDURE: Left inguinal excisional lymph node biopsy SURGEON: Dung EBL: Minimal ANESTHESIA: General COMPLICATIONS: None OPERATIVE PROCEDURE: Patient placed in the supine position. The left groin was prepped and draped sterilely. An oblique incision was made overlying the left groin. Dissection through the subcutaneous tissues took place using electrocautery. The palpable lymph node was easily identified. This measured 1.5-2 cm in size. This was excised using both electrocautery and the LigaSure device. No bleeding was seen. Subcutaneous tissues were closed using 3-0 Vicryl sutures. Skin closed using 4-0 Monocryl sutures. Sterile dressings applied. DISPOSITION: Stable to recovery room
[2020-02-16 08:42] VITALS: TEMP 96.8
[2020-02-16 09:25] VITALS: RESP 18
[2020-02-16 09:39] VITALS: BP 116/63; PULSE 68
== END 2020-02-16 10:13 | disposition home or self-care (01) ==
LOC: OR 06:03
PROVIDERS: ATTEND Surgery
DX: R59.0 Localized enlarged lymph nodes (principal); I48.91 Unspecified atrial fibrillation; E78.5 Hyperlipidemia, unspecified; J45.909 Unspecified asthma, uncomplicated; E89.0 Postprocedural hypothyroidism; Z88.1 Allergy status to other antibiotic agents; Z88.2 Allergy status to sulfonamides; Z88.5 Allergy status to narcotic agent; Z91.041 Radiographic dye allergy status; Z91.09 Other allergy status, other than to drugs and biological substances; Z88.8 Allergy status to other drugs, medicaments and biological substances; Z79.82 Long term (current) use of aspirin; Z79.890 Hormone replacement therapy; Z79.84 Long term (current) use of oral hypoglycemic drugs; Z79.899 Other long term (current) drug therapy; Z87.442 Personal history of urinary calculi; Z90.49 Acquired absence of other specified parts of digestive tract; Z98.891 History of uterine scar from previous surgery; Z96.652 Presence of left artificial knee joint; Z98.41 Cataract extraction status, right eye; Z98.42 Cataract extraction status, left eye; Z90.89 Acquired absence of other organs; Z98.890 Other specified postprocedural states; Z84.1 Family history of disorders of kidney and ureter; Z80.3 Family history of malignant neoplasm of breast
CPT/HCPCS: 80162; 88307; 38500; J2250; J1644; J1100; J0690; J2405; J2001; J3010; J1885; J0330; J2704

== ENCOUNTER → 2020-03-26 | Outpatient (CLI) | payer MEDICARE, OTHER ==
[2020-03-26 15:44] LABS: African American GFR (CKD) 52.3 (60.0-200.0); Albumin 4.7 g/dL (3.80-4.90); Albumin/Globulin Ratio 2.47 (1.60-3.17); Anion Gap 7.2 mmol/L (4.00-12.00); BUN/Creat Ratio 13.33 Ratio (12.00-20.00); Carbon Dioxide 29.8 mmol/L (21.6-31.8); Globulin 1.9 g/dL (1.6-3.3); Non-African American GFR(CKD) 45.1 (60.0-200.0); Potassium 4.4 mmol/L (3.5-5.5); Total Bilirubin 0.7 mg/dL (0.3-1.2); Total Protein 6.6 g/dL (6.2-8.2)
== END | disposition home or self-care (01) ==
LOC: LABWHC1 10:21
PROVIDERS: ATTEND Internal Medicine Endocrinology, Diabetes & Metabolism
DX: E11.65 Type 2 diabetes mellitus with hyperglycemia (principal)
CPT/HCPCS: 36415; 80053

== ENCOUNTER → 2020-05-27 | Outpatient (CLI) | payer MEDICARE, OTHER ==
--- NOTE | 2020-06-01 10:06 | MM ---
Reason for exam: screening (asymptomatic). Last mammogram was performed 1 year and 2 months ago. History: Patient is postmenopausal. Family history of breast cancer in paternal aunt at age 40 and breast cancer in maternal aunt at age 60. Benign stereotactic core biopsy of the right breast, 2006. Benign excisional biopsy of the right breast, 1994. Benign excisional biopsy of the right breast, 1990. Physical Findings: A clinical breast exam by your physician is recommended on an annual basis and results should be correlated with mammographic findings. MG 3D Screening Mammo W/Cad Bilateral CC and MLO view(s) were taken. Prior study comparison: March 19, 2019, bilateral MG 3d screening mammo w/cad. November 06, 2017, bilateral MG 3d screening mammo w/cad. The breast tissue is extremely dense which could obscure a lesion on mammography. Previous mammotome biopsy in the right breast. There is chronic nodularity in the left breast posterior central CC view and anterior superior MLO view. Far posterior asymmetric density central medial right CC view persists on 3D. ASSESSMENT: Incomplete: need additional imaging evaluation, BI-RAD 0 RECOMMENDATION: Special view mammogram of the right breast. (3D) If lesion persists on supplemental views, image directed ultrasound is recommended. [facility] will attempt to contact patient to return for supplemental views and ultrasound if indicated.
== END | disposition home or self-care (01) ==
LOC: RADMAMWWP 11:00
PROVIDERS: ATTEND Internal Medicine
DX: Z12.31 Encounter for screening mammogram for malignant neoplasm of breast (principal); Z80.3 Family history of malignant neoplasm of breast
CPT/HCPCS: 77063; 77067

== ENCOUNTER → 2020-06-07 | Outpatient (CLI) | payer MEDICARE, OTHER ==
--- NOTE | 2020-06-07 12:01 | MM ---
Reason for exam: additional evaluation requested from abnormal screening. Last mammogram was performed less than 1 month ago. History: Patient is postmenopausal. Family history of breast cancer in paternal aunt at age 40 and breast cancer in maternal aunt at age 60. Benign stereotactic core biopsy of the right breast, 2006. Benign excisional biopsy of the right breast, 1994. Benign excisional biopsy of the right breast, 1990. Physical Findings: Nurse did not find any significant physical abnormalities on exam. MG 3D Work Up W/Cad RT Spot compression CC, ML, and CCRL view(s) were taken of the right breast. Prior study comparison: May 27, 2020, bilateral MG 3d screening mammo w/cad. March 19, 2019, bilateral MG 3d screening mammo w/cad. The breast tissue is heterogeneously dense. This may lower the sensitivity of mammography. Far posterior and medial asymmetric density does not clearly persist on additional views. Far posterior and superior asymmetric density on lateral does not clearly persist on 3D. These results were verbally communicated with the patient and result sheet given to the patient on 06/07/20. ASSESSMENT: Probably benign, BI-RAD 3 RECOMMENDATION: Follow-up diagnostic mammogram of the right breast in 6 months.
== END | disposition home or self-care (01) ==
LOC: RADMAMWWP 08:56
PROVIDERS: ATTEND Internal Medicine
DX: R92.8 Other abnormal and inconclusive findings on diagnostic imaging of breast (principal)
CPT/HCPCS: 77065; G0279; 77061

== ENCOUNTER → 2020-07-12 | Outpatient (CLI) | payer MEDICARE, OTHER ==
[2020-07-12 15:41] LABS: Chol/HDL Ratio 4.33
[2020-07-12 15:42] LABS: African American GFR (CKD) 47.5 (60.0-200.0); Albumin 4.6 g/dL (3.80-4.90); Albumin/Globulin Ratio 2.88 (1.60-3.17); Anion Gap 6.5 mmol/L (4.00-12.00); BUN/Creat Ratio 15.38 Ratio (12.00-20.00); Calcium 9.3 mg/dL (8.7-10.3); Carbon Dioxide 30.5 mmol/L (21.6-31.8); Globulin 1.6 g/dL (1.6-3.3); Total Bilirubin 0.6 mg/dL (0.2-1.2); Total Protein 6.2 g/dL (6.2-8.2)
[2020-07-12 16:45] LABS: Hemoglobin A1C 5.9 % (4.0-6.0)
[2020-07-12 18:51] LABS: Urine Creatinine 153.1 mg/dL
== END | disposition home or self-care (01) ==
LOC: LABWHC1 08:28
PROVIDERS: ATTEND Internal Medicine Endocrinology, Diabetes & Metabolism
DX: E03.9 Hypothyroidism, unspecified (principal); E11.9 Type 2 diabetes mellitus without complications
CPT/HCPCS: 36415; 80053; 80061; 82043; 82570; 83036; 84443

== ENCOUNTER → 2020-12-09 | Outpatient (CLI) | payer MEDICARE, OTHER ==
--- NOTE | 2020-12-13 08:52 | MM ---
Reason for exam: follow-up at short interval from prior study. Last mammogram was performed 6 months ago. History: Patient is postmenopausal. Family history of breast cancer in paternal aunt at age 40 and breast cancer in maternal aunt at age 60. Benign stereotactic core biopsy of the right breast, 2006. Benign excisional biopsy of the right breast, 1994. Benign excisional biopsy of the right breast, 1990. Taking estrogen for 10 years beginning at age 64. Physical Findings: Nurse did not find any significant physical abnormalities on exam. MG 3D Diag Mammo W/Cad RT CC, MLO, XCCM, and LM view(s) were taken of the right breast. Prior study comparison: June 07, 2020, right breast MG 3d work up w/cad RT. May 27, 2020, bilateral MG 3d screening mammo w/cad. The breast tissue is heterogeneously dense. This may lower the sensitivity of mammography. Right 7mm nodule 12:30 8cm from nipple. Right ultrasound. These results were verbally communicated with the patient and result sheet given to the patient on 12/09/20. ASSESSMENT: Incomplete: need additional imaging evaluation, BI-RAD 0 RECOMMENDATION: Ultrasound of the right breast.
--- NOTE | 2020-12-13 08:53 | USB ---
Reason for exam: additional evaluation requested from abnormal screening. History: Patient is postmenopausal. Family history of breast cancer in paternal aunt at age 40 and breast cancer in maternal aunt at age 60. Benign stereotactic core biopsy of the right breast, 2006. Benign excisional biopsy of the right breast, 1994. Benign excisional biopsy of the right breast, 1990. Taking estrogen for 10 years beginning at age 64. US Breast Limited RT Right limited breast ultrasound including focal area of concern, retroareolar and axilla demonstrates a 0.6 x 0.3 x 0.7cm cystic lesion at 10 o'clock, benign appearing but does not correspond to nodule on mammogram. Mammographic findings probably benign. These results were verbally communicated with the patient and result sheet given to the patient on 12/09/20. ASSESSMENT: Probably benign, BI-RAD 3 RECOMMENDATION: Follow-up diagnostic mammogram of both breasts in 6 months.
== END | disposition home or self-care (01) ==
LOC: RADMAMWWP 12:48
PROVIDERS: ATTEND Internal Medicine
DX: N63.12 Unspecified lump in the right breast, upper inner quadrant (principal); N60.01 Solitary cyst of right breast; Z78.0 Asymptomatic menopausal state; Z80.3 Family history of malignant neoplasm of breast
CPT/HCPCS: 77065; 76642; G0279; 77061

== ENCOUNTER → 2021-02-10 | Outpatient (CLI) | payer MEDICARE, OTHER ==
[2021-02-11 01:41] LABS: African American GFR (CKD) 43.1 (60.0-200.0); Albumin 4.5 g/dL (3.80-4.90); Albumin/Globulin Ratio 2.05 (1.60-3.17); Anion Gap 9.3 mmol/L (4.00-12.00); BUN/Creat Ratio 14.29 Ratio (12.00-20.00); Calcium 9.6 mg/dL (8.7-10.3); Carbon Dioxide 25.7 mmol/L (21.6-31.8); Chol/HDL Ratio 4.43; Globulin 2.2 g/dL (1.6-3.3); LDL Cholesterol,Calculated 62.2 mg/dL (0.0-131.0); Non-African American GFR(CKD) 37.2 (60.0-200.0); Potassium 4.8 mmol/L (3.5-5.5); Total Bilirubin 0.6 mg/dL (0.2-1.2); Total Protein 6.7 g/dL (6.2-8.2); VLDL Calculation 40.8 mg/dL (5.00-40.00)
[2021-02-11 16:29] LABS: Urine Creatinine 96.9 mg/dL
== END | disposition home or self-care (01) ==
LOC: LABWHC1 10:17
PROVIDERS: ATTEND Internal Medicine Endocrinology, Diabetes & Metabolism
DX: E03.8 Other specified hypothyroidism (principal); E11.9 Type 2 diabetes mellitus without complications
CPT/HCPCS: 36415; 80053; 80061; 82043; 82570; 84443

== ENCOUNTER → 2021-02-21 | Outpatient (CLI) | payer MEDICARE, OTHER ==
--- NOTE | 2021-02-22 10:40 | ECHOF ---
Referral Reason: MEASUREMENTS -------- HEIGHT: 165.1 cm WEIGHT: 77.1 kg BP: RVIDd: 2.6 cm (< 3.3) IVSd: 1.2 cm (0.6 - 1.1) LVIDd: 4.0 cm (3.9 - 5.3) LVPWd: 1.2 cm (0.6 - 1.1) IVSs: 1.7 cm LVIDs: 2.8 cm LVPWs: 2.6 cm Ao Diam: 3.2 cm (2.0 - 3.7) AV Cusp: 1.9 cm (1.5 - 2.6) LA Diam: 2.9 cm (2.7 - 3.8) MV EXCURSION: 20.824 mm (> 18.000) MV EF SLOPE: 100 mm/s (70 - 150) EPSS: 0.5 cm MV E Adama: 0.49 m/s MV DecT: 192 ms MV A Adama: 0.58 m/s MV E/A Ratio: 0.84 RAP: 5.00 mmHg RVSP: 25.39 mmHg FINDINGS -------- Sinus rhythm. This was a technically difficult study with suboptimal views. The left ventricular size is normal. There is mild concentric left ventricular hypertrophy. Overa ll left ventricular systolic function is normal with, an EF between 55 - 60 %. The right ventricle is normal in size. The global wall thickness of the right ventricle is moderate ly enlarged. The left atrial size is normal. The right atrial size is normal. Lumason used The aortic valve was not well visualized. The mitral valve is normal. There is trace mitral regurgitation. The tricuspid valve appears structurally normal. Trace tricuspid regurgitation present. Right sivan tricular systolic pressure is normal at < 35 mmHg. The pulmonic valve was not well visualized. The aortic root size is normal. IVC Not well visulized. Echo free space may represent effusion or a pericardial fat pad. CONCLUSIONS -------- 1. This was a technically difficult study with suboptimal views. 2. There is mild concentric left ventricular hypertrophy. 3. Overall left ventricular systolic function is normal with, an EF between 55 - 60 %. 4. The global wall thickness of the right ventricle is moderately enlarged. 5. The left atrial size is normal. 6. There is trace mitral regurgitation. 7. Trace tricuspid regurgitation present. GUARD ENTRANCE REGISTRAR: Crissy Wilson RDCS
== END | disposition home or self-care (01) ==
LOC: RADECHMAIN 13:35
PROVIDERS: ATTEND Internal Medicine Clinical Cardiac Electrophysiology
DX: I08.1 Rheumatic disorders of both mitral and tricuspid valves (principal)
CPT/HCPCS: C8929; Q9950; 93306

== ENCOUNTER → 2021-04-06 | Outpatient (CLI) | payer MEDICARE, OTHER ==
--- NOTE | 2021-04-07 16:14 | BD ---
EXAMINATION TYPE: Axial Bone Density DATE OF EXAM: 04/06/2021 COMPARISON: 2018 CLINICAL HISTORY: Postmenopausal screening Height: 64 Weight: 173.7 FRAX RISK QUESTIONS: Alcohol (3 or more units per day): no Family History (Parent hip fracture): no Glucocorticoids (More than 3mos): no (Ex: prednisone, prednisolone, methylprednisolone, dexamethasone, and hydrocortisone). History of Fracture in Adulthood: yes Secondary Osteoporosis: 1. Type 1 Diabetes: no 2. Hyperthyroidism: no 3. Menopause before 45: no 4. Malnutrition: no 5. Chronic liver disease: no Rheumatoid Arthritis: no Current Tobacco Use: no RISK FACTORS HISTORY OF: History of Wrist Fracture: right When: 20 years ago Surgery to Spine/Hip(right/left)/Wrist (right/left): right wrist When: 20 years ago Family History of Osteoporosis: no Active: no Diet low in dairy products/other sources of calcium: no Postmenopausal woman: yes Lost more than 2 inches in height since high school: no MEDICATIONS: diabetic meds Thyroid Medications: synthroid How Lon years Additional History: EXAM MEASUREMENTS: Bone mineral densitometry was performed using the Gruvi System. Bone mineral density as measured about the Lumbar spine is: ----- L1-L4(G/cm2): 1.198 T Score Values are as follows: ----- L2: -0.1 ----- L3: 0.2 ----- L4: 0.4 ----- L1-L4: 0.1 Bone mineral density has: increased 1.5 % since study of: 03.18.2018 Bone mineral density about the R hip (g/cm2): 0.817 Bone mineral density about the L hip (g/cm2): 0.783 T Score values are as follows: -----R Neck: -1.6 -----L Neck: -1.8 -----R Total: -1.0 -----L Total: -1.1 Bone mineral density has: increased 4.4 % since study of: 03.18.2018 IMPRESSION: Osteopenia (T Score between -2.5 and -1). There is slightly increased risk of fracture and the patient may be considered for treatment. Re-Screen 2-5 years. NOTE: T-SCORE=SD OF THE YOUNG ADULT MEAN.
== END | disposition home or self-care (01) ==
LOC: RADBDWWP 09:05
PROVIDERS: ATTEND Internal Medicine
DX: Z13.820 Encounter for screening for osteoporosis (principal); M85.89 Other specified disorders of bone density and structure, multiple sites; Z78.0 Asymptomatic menopausal state
CPT/HCPCS: 77080

== ENCOUNTER → 2021-06-16 | Outpatient (CLI) | payer MEDICARE, OTHER ==
--- NOTE | 2021-06-16 10:56 | MM ---
Reason for exam: follow-up at short interval from prior study. Last mammogram was performed 6 months ago. History: Patient is postmenopausal and history of other cancer. Family history of breast cancer in paternal aunt at age 40 and breast cancer in maternal aunt at age 60. Benign stereotactic core biopsy of the right breast, 2006. Benign excisional biopsy of the right breast, 1994. Benign excisional biopsy of the right breast, 1990. Taking estrogen for 10 years beginning at age 64. Physical Findings: Nurse did not find any significant physical abnormalities on exam. MG 3D Diag Mammo W/Cad MILES Bilateral CC, MLO, and XCCL view(s) were taken. Prior study comparison: December 09, 2020, right breast MG 3d diag mammo w/cad RT. June 07, 2020, right breast MG 3d work up w/cad RT. The breast tissue is heterogeneously dense. This may lower the sensitivity of mammography. There is chronic nodularity in the left breast now smaller suggesting a cyst. No significant new findings when compared with previous films. These results were verbally communicated with the patient and result sheet given to the patient on 06/16/21. ASSESSMENT: Benign, BI-RAD 2 RECOMMENDATION: Routine screening mammogram of both breasts in 1 year.
== END | disposition home or self-care (01) ==
LOC: RADMAMWWP 08:47
PROVIDERS: ATTEND Internal Medicine
DX: R92.8 Other abnormal and inconclusive findings on diagnostic imaging of breast (principal); Z78.0 Asymptomatic menopausal state; Z80.3 Family history of malignant neoplasm of breast
CPT/HCPCS: 77066; G0279; 77062

== ENCOUNTER 2021-07-22 08:13 | Day surgery (SDC) | payer MEDICARE, OTHER ==
[2021-07-20 14:57] VITALS: BMI 29.2
[~2021-07-22 08:13] MED LIST changes: -ACETAMINOPHEN TAB 500 MG TAB PO ONE; -DEXAMETHASONE SOD PHOSPHATE 10 MG/ML 1 ML VIAL IV ONE; -HEPARIN SODIUM,PORCINE 5,000 UNIT/ML 1 ML VIAL SQ ONE; -ONDANSETRON 4 MG/2 ML VIAL IVP ONE; -fentaNYL (PF) 50 MCG/ML 2 ML AMP IV PRN
[2021-07-22 08:38] VITALS: TEMP 97.9
[2021-07-22 08:51] LABS: Glucose,Whole Blood 146 mg/dL (75-99)
[2021-07-22] MEDS ORDERED: fentaNYL (PF) 50 MCG/ML 2 ML AMP ONE (09:15)
[2021-07-22] MEDS ORDERED: MIDAZOLAM 2 MG/2 ML VIAL ONE (09:15)
[2021-07-22] MEDS ORDERED: ROPIVACAINE 5MG/ML 20ML VIAL ONE (09:15)
[2021-07-22] MEDS ORDERED: methylPREDNISolone ACETATE 40 MG/ML 1 ML VIAL ONE (09:15)
--- NOTE | 2021-07-22 09:51 | P.PCN ---
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 2-cervical degenerative disc disease POSTOPERATIVE DIAGNOSIS: Same as preoperative diagnosis. PROCEDURES: Diagnostic bilateral C5 , C6,C7 medial branch blocks, with fluo roscopic guidance (fluoroscopy images available in radiology department ) ( to target the facet joint at bilateral , C5- 6 , C6-7)# 1st ANESTHESIA: Monitored anesthesia care as per anesthesia department ,moderate sedation with Versed 2 mg , and fentanyl 50 micrograms EBL: Minimal PROCEDURE INDICATION: The patient with neck pain secondary to cervical arthropathy unresponsive to more conservative treatments. PROCEDURE DESCRIPTION / TECHNIQUE: The patient was seen and identified in the preoperative area. Risks, benefits, complications, and alternatives were discussed with the patient, the patient agreed to proceed with the procedure and signed the consent. IV was started. Vital signs remained stable throughout the procedure. Patient was taken to the OR and time out was completed. The patient was placed in the prone position on the procedure table. A pillow was placed under the patients chest to increase the cervical interlaminar space. The cervical area was prepped and draped in the usual sterile fashion. Critical pause was taken. Vital signs were closely monitored during the procedure. Conscious sedation was used during the procedure to decrease patients anxiety. Using cross-table lateral fluoroscopy, the centroid of the trapezoid of right C5, C6, C7 was identified, marked, and localized with 1% lidocaine 1 ml at each level for skin and Sub Q infiltrations . Subsequently, a 22 G 43spinal needle was advanced guided by fluoroscopy to the centroid of the trapezoid of Right C5, C6, C7 . [place] tip position was confirmed at the centroid of the trapezoids of Right C5 ,C6, C7 with anteroposterior fluoroscopy. Subsequently, 2 ml of preservative-free Ropivacaine 0.5% mixed with Depo- Medrol 20 mg and half ml of the mixture was injected after negative aspiration for blood and CSF. [place] was then removed intact the same procedure was repeated at the left C5, C6,C7 levels. COMPLICATIONS: No acute complications. DISPOSITION / PLANS: The patient was placed in a supine position and transferred to the recovery area in a stable condition for observation and was discharged from the recovery room after meeting discharge criteria. Home discharge instructions given to the patient by the staff. The patient was reexamined prior to discharge. The patient will schedule a follow up in the clinic in 2-4 weeks.
[2021-07-22] MEDS ORDERED: IV FLUID CONTINUATION 600 ML IV ONE (09:52)
--- NOTE | 2021-07-22 10:00 | FL ---
EXAMINATION TYPE: FL guided pain mgmt statistic DATE OF EXAM: 07/22/2021 HISTORY: Fluoroscopy time 25 seconds of fluoroscopy provided. IMPRESSION: 1. Fluoroscopy time.
[2021-07-22 10:18] VITALS: RESP 20
[2021-07-22 10:33] VITALS: BP 97/59; PULSE 59
== END 2021-07-22 10:50 | disposition home or self-care (01) ==
LOC: ORPAIN 08:13
PROVIDERS: ATTEND Specialist
DX: M47.812 Spondylosis without myelopathy or radiculopathy, cervical region (principal); M50.30 Other cervical disc degeneration, unspecified cervical region; M48.00 Spinal stenosis, site unspecified; I48.91 Unspecified atrial fibrillation; J45.909 Unspecified asthma, uncomplicated; E11.9 Type 2 diabetes mellitus without complications; Z87.442 Personal history of urinary calculi; Z96.652 Presence of left artificial knee joint; Z90.49 Acquired absence of other specified parts of digestive tract; Z98.891 History of uterine scar from previous surgery; E89.0 Postprocedural hypothyroidism; Z98.890 Other specified postprocedural states; Z79.84 Long term (current) use of oral hypoglycemic drugs; Z79.82 Long term (current) use of aspirin; Z79.890 Hormone replacement therapy; Z79.899 Other long term (current) drug therapy; Z88.1 Allergy status to other antibiotic agents; Z88.5 Allergy status to narcotic agent; Z88.8 Allergy status to other drugs, medicaments and biological substances; Z91.041 Radiographic dye allergy status
CPT/HCPCS: 64490; 64491; J2250; J1030; J3010; J2795

== ENCOUNTER → 2021-09-19 | Outpatient (CLI) | payer MEDICARE, OTHER ==
--- NOTE | 2021-09-19 10:23 | P.PN ---
Subjective Progress Note Date: 09/19/21 Principal diagnosis: A 75 yr old female with a history of severe and chronic neck pain secondary to cervical degenerative disc diseases and spondylosis with facet arthropathy presents today for evaluation status post facet blocks of the medial branches C5-C6, C6-C7 #2. Patient states she experienced 70% pain relief for 5 days status post procedure. Pain level is currently at 3 out of 10 in intensity, sharp, sore, achy in the lower aspects of her cervical spine with radiation of pain to the left shoulder greater than right. Pain is provoked by turning of the head or extension. Pain is alleviated with indications, injections, heat, physical therapy 10 years ago, use of a soft c-collar and rest. Interventional pain procedures completed include FB/ MBB C5-C6/ C6-C7 x 2 Patient is currently on Tylenol OTC Patient denies any side effects of the medication(s), denies excessive drowsiness or sleepiness, denies suicidal ideation and reports that the current pain medication is helping to control the pain and improve activities of daily living. Patient denies any motor or sensory deficits. Patient denies any fever or night sweats, denies any change in the bowel movements or urination. Physical Examination: -Constitutional: Cooperative. Not in acute distress . -HEENT: Neck is supple. No lymphadenopathy. No thyromegaly. Normal thyroid size. Eyes: No ptosis , no icterus, no photophobia. ENT: No auditory deficits. Normal oropharynx. No Thrush. - Respiratory: Chest clear to auscultations bilaterally. No wheezing. No rhonchi. - Cardiovascular: Regular rate and rhythm. S1 / S2 , no S3 , no S4. - Gastrointestinal: Abdomen soft no tenderness. Bowel sounds positive in all four quadrants. No organomegaly. - Genitourinary: Deferred. - Neurologic: Cranial nerve II to XII intact. No focal neurological deficits. - Psychatric: Alert & oriented x 3. Matching mood & appropriate affect. Judgment and insight intact. - Lymphatic: No Lymphadenopathy. - Musculoskeletal: Cervical spine: Muscle bulk/ tone/ strength in the bilateral upper extremities normal. Facet loading test cervical area positive over C5-C6/ C6-C7 Lumbar spine: Motor bulk/ tone/ strength lower extremities , thigh and legs : 5/5 Deep tendon reflexes : Normal Knee Jerk. Normal Ankle Jerk . Vertebral body tenderness to palpation over Lumbar Facet Loading Test positive Straight Leg Raise: positive at 30 degrees right side/ left side Gaenslen's Test positive Sacral spine : Severe tenderness over the Sacroiliac joint: right side / left side Range of motion: Flexion of the lumbar spine <60 degrees Range of motion: Extension of the lumbar spine <20 degrees Gaenslen's Test positive Leandra test: positive right side / left side Assessment and plan: Chronic neck pain secondary to cervical degenerative disc disease , spondylosis with facet arthropathy without myelopathy Recommendation of RFA BL C5-C6, C6-C7. Risks, benefits of procedure discussed and pt verbalized understanding. Denies anticoagulant use. Admits to a medical history of diabetes. Protocol for discontinuation/ continuation of med ications denice procedure discussed. All patient questions answered MAPS reviewed and it was appropriate. I have spent 31 minutes on patient care today. Dr Ramos was available by [facility] for the evaluation of this patient. The time was used to review the medical records including relevant urine studies and Prescription history (MAPs), review of the available imaging, evaluation and examination of the patient, coordination of care with the medical staff and if applicable referring physicians, as well as creation of the medical record PQRS Measure Charge Sheet PQRS Narrative: Smoking Status Never smoker Hx Alcohol Use (MH) Yes Home Medications: Ambulatory Orders Aspirin 81 mg PO HS 11/03/14 Cholecalciferol [Vitamin D3 (25 Mcg = 1000 Iu)] 5,000 unit PO DAILY 11/03/14 FLUoxetine HCL [PROzac] 20 mg PO QAM 11/03/14 Digoxin [Lanoxin] 125 mcg PO DAILY 07/27/16 Estradiol [Vagifem] 10 mcg VAGINAL Q72H 07/27/16 Levothyroxine Sodium [Synthroid] 112 mcg PO DAILY 07/27/16 Ipratropium/Albuterol Sulfate [Combivent Respimat Inhaler] 1 puff INHALATION DAILY PRN 11/29/17 Magnus Red 500 mg PO DAILY 11/29/17 Mag/Aluminum/Sod Bicarb/Alginc [Gaviscon 80-14.2 mg Tab Chew] 1 tab PO DAILY PRN 02/09/19 Metoprolol Succinate (ER) [Toprol XL] 25 mg PO BID 02/09/19 Pravastatin Sodium [Pravachol] 20 mg PO DAILY 02/09/19 Fran/D3/Mag11/Zinc/Open H[employer]orer/Felipe/Bor [Caltrate 600+D Plus Tablet] 1 tab PO DAILY 05/02/19 Fluticasone/Salmeterol [Advair 500-50 Diskus] 1 inhalation PO BID 11/11/19 Dapagliflozin Propanediol [Farxiga] 5 mg PO 1500 06/09/21 Diltiazem HCl [Diltiazem HCl 24Hr ER (CD)] 120 mg PO DAILY 06/09/21 Famotidine [Pepcid] 20 mg PO HS 06/09/21 Fenofibrate Nanocrystallized [Tricor] 72.5 mg PO BID 06/09/21 busPIRone HCl [Buspar] 15 mg PO BID 07/20/21
[2021-09-19 11:51] VITALS: BP 108/64; PULSE 78; RESP 18; TEMP 96
== END ==
LOC: PNWHC3 09:31
PROVIDERS: ATTEND Specialist
DX: M50.30 Other cervical disc degeneration, unspecified cervical region (principal); M47.812 Spondylosis without myelopathy or radiculopathy, cervical region; G89.29 Other chronic pain; E11.9 Type 2 diabetes mellitus without complications; Z88.5 Allergy status to narcotic agent; Z88.1 Allergy status to other antibiotic agents; Z88.2 Allergy status to sulfonamides; Z91.041 Radiographic dye allergy status; Z91.018 Allergy to other foods; Z88.8 Allergy status to other drugs, medicaments and biological substances
CPT/HCPCS: 99211

== ENCOUNTER 2021-10-14 11:23 | Day surgery (SDC) | payer MEDICARE, OTHER ==
[2021-10-12 15:45] VITALS: BMI 28.3
[~2021-10-14 11:23] MED LIST changes: +LIDOCAINE 1% (10MG/ML) FOR IV START INTRADERMA PRN
[2021-10-14 11:45] VITALS: TEMP 96.6
[2021-10-14 11:57] LABS: Glucose,Whole Blood 127 mg/dL (75-99)
[2021-10-14] MEDS ORDERED: fentaNYL (PF) 50 MCG/ML 2 ML AMP ONE (12:46)
[2021-10-14] MEDS ORDERED: ROPIVACAINE 5MG/ML 20ML VIAL ONE (12:46)
[2021-10-14] MEDS ORDERED: MIDAZOLAM 2 MG/2 ML VIAL ONE (12:46)
[2021-10-14] MEDS ORDERED: methylPREDNISolone ACETATE 40 MG/ML 1 ML VIAL ONE (12:46)
--- NOTE | 2021-10-14 13:20 | P.PCN ---
Date of Procedure: 10/14/21 Procedure(s) Performed: PREOPERATIVE DIAGNOSIS: Cervical spondylosis with Facet Arthropathy without myelopathy. POSTOPERATIVE DIAGNOSIS: Cervical spondylosis with Facet Arthropathy without myelopathy. PROCEDURES: Radiofrequency thermocoagulation, Right C5, C6, C7 medial branch with Fluroscopy [place](fluoroscopy was available in Radiology department ) (to denervate the facet joint at Right C5- 6, C6-7 ) ANESTHESIA: Monitored anesthesia care as per anesthesia department . EBL: Minimal PROCEDURE INDICATION: The patient with neck pain secondary to cervical arthropathy who had more than 50% relief of her pain with previous diagnostic cervical medial branch block. PROCEDURE DESCRIPTION / TECHNIQUE: The patient was seen and identified in the preoperative area. Risks, benefits, complications, and alternatives were discussed with the patient, the patient agreed to proceed with the procedure and signed the consent. IV was started. Vital signs remained stable throughout the procedure. Patient was taken to the OR and time out was completed. The patient was placed in the Lateral position on the procedure table. A pillow was placed under the patients chest to increase the cervical interlaminar space. The cervical area was prepped and draped in the usual sterile fashion. Critical pause was taken. Vital signs were closely monitored during the procedure. Conscious sedation was used during the procedure to decrease patients anxiety. Using cross-table lateral fluoroscopy, the centroid of the trapezoid of Right C5, C6, C7 were identified, marked, and localized with 1% lidocaine. Subsequently, a 20 -xk radiofrequency cannula with a 10-mm active tip was advanced guided by fluoroscopy to the centroid of the trapezoid of Right C5,,C6, C7 . Needle tip position was confirmed at the centroid of the trapezoids of Right C5, and C6, C7 with anteroposterior fluoroscopy. Each site then underwent sensory testing at 50 Hz and 0 to 1 volt and motor testing at 2 Hz and 0 to 3 volt with local stimulation, but no radicular symptoms down the arm. Thereafter each sites underwent radiofrequency thermocoagulation at 80 degrees celsius for 90 seconds after injecting 0.5 ml of PF Ropivacaine 0.5 %. After thermocoagulation, 1 ml of the block solution containing Depo-Medrol 40 mg and 5 mL of preservative-free normal saline was injected at the right C5, C6 ,C7 levels after negative aspiration of CSF and blood and with no paresthesias. Cannulas were retracted while injecting lidocaine 1% until the needle is out. Skin was cleansed and bandages were applied. COMPLICATIONS: No acute complications. DISPOSITION / PLANS: The patient was placed in a supine position and transferred to the recovery area in a stable condition for observation and was discharged from the recovery room after meeting discharge criteria. Home discharge instructions given to the patient by the staff. The patient was reexamined prior to discharge. The patient will schedule a follow up in the clinic in 2-4 weeks. note= patient was positioned in prone position. I was not able to visualize C6 and C7 vertebral, then patient transferred to the supine position, he was not able to visualize C6 and C7 vertebra, then patient placed in lateral position the right side up, I was able to visualize C5, C6 and C7, it was technically very difficult to visualize the targeted area, for this reason we ended up doing only the right side, and patient will be scheduled to have the left side in the near future.
[2021-10-14] MEDS ORDERED: IV FLUID CONTINUATION 1,000 ML IV ONE (13:21)
[2021-10-14 13:30] VITALS: RESP 16
[2021-10-14 14:01] VITALS: BP 101/56; PULSE 65
--- NOTE | 2021-10-14 14:35 | FL ---
EXAMINATION TYPE: FL guided pain mgmt statistic DATE OF EXAM: 10/14/2021 HISTORY: Fluoroscopy time 44 seconds of fluoroscopy provided. IMPRESSION: 1. Fluoroscopy time.
== END 2021-10-14 14:20 | disposition home or self-care (01) ==
LOC: ORPAIN 11:23
PROVIDERS: ATTEND Specialist
DX: M47.812 Spondylosis without myelopathy or radiculopathy, cervical region (principal)
CPT/HCPCS: 64633; 64634; J2250; J1030; J3010; J2795

== ENCOUNTER → 2021-10-19 | Outpatient (CLI) | payer MEDICARE, OTHER ==
[2021-10-19 18:09] LABS: Basophils # (A) 0.04 X 10*3/uL (0.00-0.10); Basophils % (A) 0.5 %; Eosinophils # (A) 0.22 X 10*3/uL (0.04-0.35); Eosinophils % (A) 2.9 %; HGB 15.6 g/dL (12.0-15.0); Immature Grans, Automated 0.3 %; Lymphocytes # (A) 2.35 X 10*3/uL (0.90-5.00); Lymphocytes % (A) 30.9 %; MCH 29.2 pg (27.0-32.0); MCHC 33.2 g/dL (32.0-37.0); Monocytes # (A) 0.67 X 10*3/uL (0.20-1.00); Monocytes % (A) 8.8 %; NRBC Per 100 WBC 0 /100 WBCS (0.0-0.0); Neutrophils % (A) 56.6 %; Platelet Count 233 X 10*3/uL (140-440); RBC 5.34 X 10*6/uL (4.10-5.20); RDW 13.2 % (11.5-14.5)
[2021-10-19 18:27] LABS: ALT 27 U/L (8-44); AST 19 U/L (13-35); African American GFR (CKD) 66.7 (60.0-200.0); Albumin 4.5 g/dL (3.8-4.9); Alkaline Phosphatase 76 U/L (41-126); BUN/Creat Ratio 21.72 Ratio (12.00-20.00); Blood Urea Nitrogen 21.2 mg/dL (9.0-27.0); Calcium 9.6 mg/dL (8.7-10.3); Carbon Dioxide 27.4 mmol/L (20.0-27.5); Chloride 102 mmol/L (96-109); Chol/HDL Ratio 4.08 Ratio; Globulin 2.1 g/dL (1.6-3.3); Glucose 111 mg/dL (70-110); LDL Cholesterol,Calculated 77.1 mg/dL (0.0-131.0); Non-African American GFR(CKD) 57.5 (60.0-200.0); Potassium 4.4 mmol/L (3.5-5.5); Sodium 141 mmol/L (135-145); Total Protein 6.6 g/dL (6.2-8.2)
== END | disposition home or self-care (01) ==
LOC: LABWHC1 11:39
PROVIDERS: ATTEND Internal Medicine
DX: I10 Essential (primary) hypertension (principal); E78.2 Mixed hyperlipidemia; E03.9 Hypothyroidism, unspecified
CPT/HCPCS: 36415; 80053; 80061; 84439; 84443; 85025

== ENCOUNTER → 2021-11-11 | Day surgery (SDC) | payer MEDICARE, OTHER ==
[2021-11-10 08:43] VITALS: BMI 29.2
[~2021-11-11] MED LIST changes: +IV FLUID CONTINUATION 1,000 ML IV ONE; +MIDAZOLAM 2 MG/2 ML VIAL ONE; +ROPIVACAINE 5MG/ML 20ML VIAL ONE; +fentaNYL (PF) 50 MCG/ML 2 ML AMP ONE; +methylPREDNISolone ACETATE 40 MG/ML 1 ML VIAL ONE
[2021-11-11 09:39] VITALS: TEMP 98.7
[2021-11-11 09:49] LABS: Glucose,Whole Blood 139 mg/dL (75-99)
--- NOTE | 2021-11-11 10:35 | P.PCN ---
Date of Procedure: 11/11/21 Procedure(s) Performed: PREOPERATIVE DIAGNOSIS: Cervical spondylosis with Facet Arthropathy without myelopathy. POSTOPERATIVE DIAGNOSIS: Cervical spondylosis with Facet Arthropathy without myelopathy. PROCEDURES: Radiofrequency thermocoagulation, left C3, C4, C5, medial branch with Fluroscopy [place](fluoroscopy was available in Radiology department ) (to denervate the facet joint at left C3- 4 , C4- 5 ) ANESTHESIA: Monitored anesthesia care as per anesthesia department . EBL: Minimal PROCEDURE INDICATION: The patient with neck pain secondary to cervical arthropathy who had more than 50% relief of her pain with previous diagnostic cervical medial branch block. PROCEDURE DESCRIPTION / TECHNIQUE: The patient was seen and identified in the preoperative area. Risks, benefits, complications, and alternatives were discussed with the patient, the patient agreed to proceed with the procedure and signed the consent. IV was started. Vital signs remained stable throughout the procedure. Patient was taken to the OR and time out was completed. The patient was placed in the lateral position on the procedure table. A pillow was placed under the patients chest to increase the cervical interlaminar space. The cervical area was prepped and draped in the usual sterile fashion. Critical pause was taken. Vital signs were closely monitored during the procedure. Conscious sedation was used during the procedure to decrease patients anxiety. Using cross-table lateral fluoroscopy, the centroid of the trapezoid of left C3, C4, C5, were identified, marked, and localized with 1% lidocaine. Subsequently, a 20 -rh radiofrequency cannula with a 10-mm active tip was advanced guided by fluoroscopy to the centroid of the trapezoid of C3, C4, C5. Needle tip position was confirmed at the centroid of the trapezoids of C3, C4, C5, with anteroposterior fluoroscopy. Each site then underwent sensory testing at 50 Hz and 0 to 1 volt and motor testing at 2 Hz and 0 to 3 volt with local stimulation, but no radicular symptoms down the arm. Thereafter each sites underwent radiofrequency thermocoagulation at 80 degrees celsius for 90 seconds after injecting 0.5 ml of PF Ropivacaine 0.5 %. After thermocoagulation, 1 ml of the block solution containing Depo-Medrol 40 mg and 5 mL of preservative-free normal saline was injected at the C3, C4, C5 levels after negative aspiration of CSF and blood and with no paresthesias. Cannulas were retracted while injecting lidocaine 1% until the needle is out. Skin was cleansed and bandages were applied. COMPLICATIONS: No acute complications. DISPOSITION / PLANS: The patient was placed in a supine position and transferred to the recovery area in a stable condition for observation and was discharged from the recovery room after meeting discharge criteria. Home discharge instructions given to the patient by the staff. The patient was reexamined prior to discharge. The patient will schedule a follow up in the clinic in 2-4 weeks. note= previously we have done diagnostic medial branch block cervical area at C5 ,C6 ,C7 , last procedure we did RFA of the right side C5 6 and C6 7 , and she was here to have RFA on the left side at C5 6 and C6 7 , today in the preop holding area ,the patient reported ,that she had RFA done by Dr. Waite previously and she had better pain relief , and she had RFA done at the higher level at C3 4 , C4 5 , for this reason I discussed with the patient, the option of doing the RFA on the left side at the C3-C4 and C4-C5 hopefully patient will have better pain relief
[2021-11-11 10:39] VITALS: RESP 16
[2021-11-11 10:50] VITALS: BP 97/57; PULSE 68
--- NOTE | 2021-11-12 14:01 | FL ---
Intraoperative fluoroscopic services were provided for surgery of the spine. Total fluoroscopy time i s 15.5 seconds with a total of 2 submitted images to PACS. Please see the operative note for further details.
== END ==
LOC: ORPAIN 09:11
PROVIDERS: ATTEND Specialist
DX: M47.812 Spondylosis without myelopathy or radiculopathy, cervical region (principal); I48.91 Unspecified atrial fibrillation; E78.5 Hyperlipidemia, unspecified; E06.3 Autoimmune thyroiditis; E11.9 Type 2 diabetes mellitus without complications; F41.9 Anxiety disorder, unspecified; F32.A Depression, unspecified; K21.9 Gastro-esophageal reflux disease without esophagitis; Z79.899 Other long term (current) drug therapy; Z79.890 Hormone replacement therapy; Z79.84 Long term (current) use of oral hypoglycemic drugs; Z88.5 Allergy status to narcotic agent; Z88.2 Allergy status to sulfonamides; Z88.8 Allergy status to other drugs, medicaments and biological substances; Z91.018 Allergy to other foods
CPT/HCPCS: 64633; 64634; J2250; J1030; J3010; J2795

== ENCOUNTER → 2021-11-22 | Outpatient (CLI) | payer MEDICARE, OTHER ==
[2021-11-22 15:01] LABS: ALT 30 U/L (8-44); AST 21 U/L (13-35); African American GFR (CKD) 68.8 (60.0-200.0); Albumin 4.4 g/dL (3.8-4.9); Albumin/Globulin Ratio 1.96 (1.60-3.17); Alkaline Phosphatase 84 U/L (41-126); Blood Urea Nitrogen 15.5 mg/dL (9.0-27.0); Calcium 9.4 mg/dL (8.7-10.3); Carbon Dioxide 24.8 mmol/L (20.0-27.5); Chloride 105 mmol/L (96-109); Chol/HDL Ratio 4.33 Ratio; Globulin 2.2 g/dL (1.6-3.3); Glucose 137 mg/dL (70-110); LDL Cholesterol,Calculated 61.1 mg/dL (0.0-131.0); Non-African American GFR(CKD) 59.3 (60.0-200.0); Potassium 4.2 mmol/L (3.5-5.5); Sodium 142 mmol/L (135-145); Total Protein 6.6 g/dL (6.2-8.2)
== END | disposition home or self-care (01) ==
LOC: LABWHC1 10:29
PROVIDERS: ATTEND Internal Medicine Endocrinology, Diabetes & Metabolism
DX: E11.65 Type 2 diabetes mellitus with hyperglycemia (principal)
CPT/HCPCS: 36415; 80053; 80061; 82043; 82570; 83036; 84443

== ENCOUNTER → 2021-11-30 | Outpatient (CLI) | payer MEDICARE, OTHER ==
[2021-11-30 10:26] VITALS: BP 120/72; PULSE 95; RESP 18; TEMP 98.7
--- NOTE | 2021-11-30 11:19 | P.PAINPG ---
Objective - Vital Signs Vital signs: Vital Signs Temp 98.7 F 11/30/21 10:15 Pulse 95 11/30/21 10:15 Resp 18 11/30/21 10:15 BP 120/72 11/30/21 10:15 Pulse Ox 95 11/30/21 10:15 FiO2 Intake & Output 11/29/21 11/30/21 11/30/21 18:59 06:59 18:59 Weight 77.111 kg PQRS Measure Charge Sheet Mode of Arrival: Ambulatory Comment: A 75 yr old female with a history of severe and chronic neck pain secondary to degenerative disc diseases and spondylosis with facet arthropathy presents today for evaluation s/p RFA. 0% pain relief s/p procedure. Pain level is currently at 6/10 in intensity, constant, sharp pain which is provoked with rotation and hyperextension. Pain is alleviated with PT 10 yrs ago, medications, topicals, home based guided stretching, heat, use of a soft C collar. Interventional pain procedures completed include R RFA C5-C6, C6-C7, L RFA C3-C5 Patient is currently on OTC meds Patient denies any side effects of the medication(s), denies excessive drowsiness or sleepiness, denies suicidal ideation and reports that the current pain medication is helping to control the pain and improve activities of daily living. Patient denies any motor or sensory deficits. Patient denies any fever or night sweats, denies any change in the bowel movements or urination. Physical Examination: -Constitutional: Cooperative. Not in acute distress . - Neurologic: Cranial nerve II to XII intact. No focal neurological deficits. - Psychatric: Alert & oriented x 3. Matching mood & appropriate affect. Judgment and insight intact. - Musculoskeletal: Cervical spine: Muscle bulk/ tone/ strength in the bilateral upper extremities normal Vertebral body tenderness to palpation over [place] test positive Distraction test positive Facet loading test positive on the L Thoracic spine Muscle bulk / tone/ strength in the bilateral paraspinal muscles normal Vertebral body tender to palpation over Facet loading test positive Lumbar spine: Motor bulk/ tone/ strength lower extremities , thigh and legs : 5/5 Deep tendon reflexes : Normal Knee Jerk. Normal Ankle Jerk . Vertebral body tenderness to palpation over Lumbar Facet Loading Test positive Straight Leg Raise: positive at 30 degrees right side/ left side Gaenslen's Test positive Sacral spine : Severe tenderness over the Sacroiliac joint: right side / left side Range of motion: Flexion of the lumbar spine <60 degrees Range of motion: Extension of the lumbar spine <20 degrees Gaenslen's Test positive Tyrone's Test positive Leandra test: positive right side / left side Thigh Thrust Test Sacral Thrust Test Assessment and plan: Chronic neck pain secondary to degenerative disc disease , spondylosis with facet arthropathy without myelopathy Recommendation of L RFA C5-C6, C6-C7. Patient exhibited substantial and sufficient pain relief with the prior facet blocks of the medial branches. Risks, benefits of procedure discussed and pt verbalized understanding. Denies anticoagulant use or medical history of diabetes. All patient questions answered MAPS reviewed and it was appropriate. I have spent less than 30 minutes on patient care today. Dr Ramos was available by phone for the evaluation of this patient. The time was used to review the medical records including relevant urine studies and Prescription history (MAPs), review of the available imaging, evaluation and examination of the patient, coordination of care with the medical staff and if applicable referring physicians, as well as creation of the medical record - Pain Location Left Lower Neck Non-Pharmacological Interventions: Heat, Physical Therapy, Position/Reposition Pharmacological Interventions: Block, Epidural, PRN Medication, Topical Medication PQRS Narrative: Smoking Status Never smoker Blood Pressure 120/72 Pain Intensity [Left Lower 6 Neck] Scale Used Numeric (1 - 10) Hx Alcohol Use (MH) Yes Home Medications: Ambulatory Orders Aspirin 81 mg PO HS 11/03/14 Cholecalciferol [Vitamin D3 (25 Mcg = 1000 Iu)] 5,000 unit PO DAILY 11/03/14 FLUoxetine HCL [PROzac] 20 mg PO QAM 11/03/14 Digoxin [Lanoxin] 125 mcg PO DAILY 07/27/16 Levothyroxine Sodium [Synthroid] 112 mcg PO DAILY 07/27/16 estradioL [Vagifem] 10 mcg VAGINAL Q72H 07/27/16 Ipratropium/Albuterol Sulfate [Combivent Respimat Inhaler] 1 puff INHALATION DAILY PRN 11/29/17 Magnus Red 500 mg PO DAILY 11/29/17 Mag/Aluminum/Sod Bicarb/Alginc [Gaviscon 80-14.2 mg Tab Chew] 1 tab PO DAILY PRN 02/09/19 Metoprolol Succinate (ER) [Toprol XL] 25 mg PO BID 02/09/19 Pravastatin Sodium [Pravachol] 40 mg PO DAILY 02/09/19 Fran/D3/Mag11/Zinc/Staffing Branch Manager/Felipe/Bor [Caltrate 600+D Plus Tablet] 1 tab PO DAILY 05/02/19 Fluticasone Propion/Salmeterol [Advair 500-50 Diskus] 1 inhalation PO BID 11/11/19 Dapagliflozin Propanediol [Farxiga] 5 mg PO 1500 06/09/21 Famotidine [Pepcid] 20 mg PO HS 06/09/21 dilTIAZem HCL [Diltiazem HCl 24Hr ER (CD)] 120 mg PO DAILY 06/09/21 Controlled Substance Measures - Controlled Substance Measures Is patient prescribed a controlled substance at discharge?: No
== END ==
LOC: PNWHC3 09:34
PROVIDERS: ATTEND Specialist
DX: M50.30 Other cervical disc degeneration, unspecified cervical region (principal); M47.812 Spondylosis without myelopathy or radiculopathy, cervical region; G89.29 Other chronic pain; Z88.5 Allergy status to narcotic agent; Z88.1 Allergy status to other antibiotic agents; Z88.8 Allergy status to other drugs, medicaments and biological substances; Z91.041 Radiographic dye allergy status; Z88.2 Allergy status to sulfonamides; Z91.09 Other allergy status, other than to drugs and biological substances
CPT/HCPCS: 99211

== ENCOUNTER → 2022-02-27 | Outpatient (CLI) | payer MEDICARE, OTHER ==
[2022-02-27 15:50] LABS: ALT 28 U/L (8-44); AST 18 U/L (13-35); African American GFR (CKD) 64.3 (60.0-200.0); Albumin 4.2 g/dL (3.8-4.9); Albumin/Globulin Ratio 2.21 (1.60-3.17); Alkaline Phosphatase 83 U/L (41-126); Blood Urea Nitrogen 15.6 mg/dL (9.0-27.0); Calcium 9.2 mg/dL (8.7-10.3); Carbon Dioxide 26.9 mmol/L (20.0-27.5); Chloride 104 mmol/L (96-109); Chol/HDL Ratio 4.52 Ratio; Globulin 1.9 g/dL (1.6-3.3); Glucose 151 mg/dL (70-110); LDL Cholesterol,Calculated 74.2 mg/dL (0.0-131.0); Non-African American GFR(CKD) 55.5 (60.0-200.0); Potassium 4.8 mmol/L (3.5-5.5); Sodium 141 mmol/L (135-145); Total Protein 6.1 g/dL (6.2-8.2)
[2022-02-27 18:42] LABS: Microalbumin Creatinine Ratio <30 mg/g Creat (0-30)
== END | disposition home or self-care (01) ==
LOC: LABWHC1 10:22
PROVIDERS: ATTEND Internal Medicine Endocrinology, Diabetes & Metabolism
DX: E11.65 Type 2 diabetes mellitus with hyperglycemia (principal)
CPT/HCPCS: 36415; 80053; 80061; 82043; 82570; 83036

== ENCOUNTER → 2022-06-13 | Outpatient (CLI) | payer MEDICARE, OTHER ==
[2022-06-13 14:47] LABS: ALT 29 U/L (8-44); AST 21 U/L (13-35); African American GFR (CKD) 64.3 (60.0-200.0); Albumin 4.4 g/dL (3.8-4.9); Albumin/Globulin Ratio 2.32 (1.60-3.17); Alkaline Phosphatase 85 U/L (41-126); Blood Urea Nitrogen 16.7 mg/dL (9.0-27.0); Calcium 9.4 mg/dL (8.7-10.3); Carbon Dioxide 28.1 mmol/L (20.0-27.5); Chloride 106 mmol/L (96-109); Chol/HDL Ratio 4.78 Ratio; Globulin 1.9 g/dL (1.6-3.3); Glucose 126 mg/dL (70-110); LDL Cholesterol,Calculated 82.9 mg/dL (0.0-131.0); Non-African American GFR(CKD) 55.5 (60.0-200.0); Potassium 4.6 mmol/L (3.5-5.5); Sodium 143 mmol/L (135-145); Total Protein 6.3 g/dL (6.2-8.2)
== END | disposition home or self-care (01) ==
LOC: LABWHC1 09:12
PROVIDERS: ATTEND Internal Medicine Endocrinology, Diabetes & Metabolism
DX: E11.65 Type 2 diabetes mellitus with hyperglycemia (principal); E03.8 Other specified hypothyroidism
CPT/HCPCS: 36415; 80053; 80061; 82043; 82570; 83036; 84443

== ENCOUNTER → 2022-06-21 | Outpatient (CLI) | payer MEDICARE, OTHER ==
--- NOTE | 2022-06-22 17:38 | MM ---
Reason for Exam: Screening (asymptomatic). Last screening mammogram was performed 12 month(s) ago. Patient History: Menarche at age 12. First Full-Term at age 32. Late child-bearing (after 32). Postmenopausal. Other cancer. Estrogen, starting at age 64 for 10 years. 2006, Benign Stereotactic Core Biopsy on the right side. 1994, Benign Excisional Biopsy on the right side. 1990, Benign Excisional Biopsy on the right side. Paternal aunt had breast cancer, age 40. Maternal aunt had breast cancer, age 60. Risk Values: Sadie 5 year model risk: 4.0%. NCI Lifetime model risk: 9.1%. Prior Study Comparison: 06/07/2020 Right Diagnostic Mammogram, [facility]. 12/09/2020 Right Diagnostic Mammogram, [facility]. 06/16/2021 Bilateral Diagnostic Mammogram, [facility]. Tissue Density: The breast tissue is heterogeneously dense. This may lower the sensitivity of mammography. Findings: Analyzed By CAD. And appears symmetrical and stable. No significant interval changes. A few scattered calcifications are present. There is a group of calcifications in the craniocaudal projection slightly right of midline posteriorly. Additional workup is recommended. Overall Assessment: Incomplete: need additional imaging evaluation, BI-RAD 0 Management: Diagnostic Mammogram of the right breast. A negative mammogram report should not preclude additional follow up of suspicious palpable abnormalities. Patient should continue monthly self breast exam. A clinical breast exam by your physician is recommended on an annual basis and results should be correlated with mammographic findings. Electronically signed and approved by: Shaheed Read D.O. Radiologis
== END | disposition home or self-care (01) ==
LOC: RADMAMWWP 15:07
PROVIDERS: ATTEND Internal Medicine
DX: Z12.31 Encounter for screening mammogram for malignant neoplasm of breast (principal); Z78.0 Asymptomatic menopausal state; Z80.3 Family history of malignant neoplasm of breast; Z98.890 Other specified postprocedural states
CPT/HCPCS: 77063; 77067

== ENCOUNTER → 2022-06-28 | Outpatient (CLI) | payer MEDICARE, OTHER ==
--- NOTE | 2022-06-28 10:10 | MM ---
Reason for Exam: Additional evaluation requested from abnormal screening. Last screening mammogram was performed less than 1 month ago. Patient History: Menarche at age 12. First Full-Term at age 32. Late child-bearing (after 32). Postmenopausal. Patient used Hormonal Contraceptives for 1 year. 2006, Benign Stereotactic Core Biopsy on the right side. 1994, Benign Excisional Biopsy on the right side. 1990, Benign Excisional Biopsy on the right side. Paternal aunt had breast cancer, age 40. Maternal aunt had breast cancer, age 60. Risk Values: Sadie 5 year model risk: 4.0%. NCI Lifetime model risk: 9.1%. Prior Study Comparison: 10/31/2016 Bilateral Screening Mammogram, [facility]. 11/06/2017 Bilateral Screening Mammogram, [facility]. 03/19/2019 Bilateral Screening Mammogram, [facility]. 05/27/2020 Bilateral Screening Mammogram, [facility]. 06/07/2020 Right Diagnostic Mammogram, [facility]. 12/09/2020 Right Diagnostic Mammogram, [facility]. 12/09/2020 Right Diagnostic Ultrasound, [facility]. 06/16/2021 Bilateral Diagnostic Mammogram, [facility]. 06/21/2022 Bilateral MG 3D screening mammo w/cad, [facility]. Tissue Density: Right: The breast tissue is heterogeneously dense. This may lower the sensitivity of mammography. Findings: Analyzed By CAD. No suspicious mass within the right breast. The grouped calcifications within the central right breast only on the cc view posteriorly appear round in morphology. Overall Assessment: Probably benign, BI-RAD 3 Management: Diagnostic Mammogram of the right breast in 6 months. A clinical breast exam by your physician is recommended on an annual basis and results should be correlated with mammographic findings. This exam should not preclude additional follow-up of suspicious palpable abnormalities. Results were given to the patient verbally at the time of exam. Electronically signed and approved by: James Anderson D.O.
== END | disposition home or self-care (01) ==
LOC: RADMAMWWP 09:14
PROVIDERS: ATTEND Internal Medicine
DX: R92.8 Other abnormal and inconclusive findings on diagnostic imaging of breast (principal); Z78.0 Asymptomatic menopausal state; Z80.3 Family history of malignant neoplasm of breast; Z98.890 Other specified postprocedural states
CPT/HCPCS: 77065; G0279; 77061

== ENCOUNTER → 2022-09-15 | Outpatient (CLI) | payer MEDICARE, OTHER ==
[2022-09-15 15:56] LABS: ALT 35 U/L (8-44); AST 23 U/L (13-35); African American GFR (CKD) 57.3 (60.0-200.0); Albumin 4.2 g/dL (3.8-4.9); Alkaline Phosphatase 88 U/L (41-126); BUN/Creat Ratio 13.91 Ratio (12.00-20.00); Blood Urea Nitrogen 15.3 mg/dL (9.0-27.0); Calcium 9.5 mg/dL (8.7-10.3); Chloride 104 mmol/L (96-109); Chol/HDL Ratio 5.07 Ratio; Glucose 146 mg/dL (70-110); LDL Cholesterol,Calculated 63.4 mg/dL (0.0-131.0); Non-African American GFR(CKD) 49.4 (60.0-200.0); Potassium 4.4 mmol/L (3.5-5.5); Sodium 142 mmol/L (135-145); Total Protein 6.2 g/dL (6.2-8.2)
[2022-09-15 21:50] LABS: Microalbumin Creatinine Ratio <30 mg/g Creat (0-30); Urine Creatinine 81.8 mg/dL (28.0-217.0)
== END | disposition home or self-care (01) ==
LOC: LABWHC1 07:49
PROVIDERS: ATTEND Internal Medicine Endocrinology, Diabetes & Metabolism
DX: E11.65 Type 2 diabetes mellitus with hyperglycemia (principal)
CPT/HCPCS: 36415; 80053; 80061; 82043; 82570; 83036; 84443

== ENCOUNTER → 2023-02-15 | Outpatient (CLI) | payer MEDICARE, OTHER ==
--- NOTE | 2023-02-15 22:23 | BD ---
EXAMINATION TYPE: Axial Bone Density DATE OF EXAM: 02/15/2023 CLINICAL HISTORY: 77 years old Female. ICD-10 CODE: M85.851 osteopenia R hip Height: 64in Weight: 191lb FRAX RISK QUESTIONS: Glucocorticoids (More than 3mos): yes, inhaler (Ex: prednisone, prednisolone, methylprednisolone, dexamethasone, and hydrocortisone). History of Fracture in Adulthood: yes Secondary Osteoporosis: RISK FACTORS HISTORY OF: History of Wrist Fracture: yes When: 20+ years Surgery to Spine/Hip(right/left)/Wrist (right/left): wrist surgery Active: no Postmenopausal woman: yes MEDICATIONS: Prednisone or other steroids: yes How Long: Additional Medications: Diabetic meds, cholesterol med, calcium with vitamin d, reflux med Additional History: Type II diabetic, lo disease, type III kidney disease EXAM MEASUREMENTS: Bone mineral densitometry was performed using the [employer] System. Bone mineral density as measured about the Lumbar spine is: ----- L1-L4(G/cm2): 1.232 T Score Values are as follows: ----- L1: 0.0 ----- L2: 0.1 ----- L3: 0.7 ----- L4: 0.7 ----- L1-L4: 0.4 Z Score Values are as follows: ----- L1: 1.0 ----- L2: 1.2 ----- L3: 1.7 ----- L4: 1.7 ----- L1-L4: 1.5 Bone mineral density has: Increased 2.8% since study of: 04-06-2021 Bone mineral density about the R hip (g/cm2): 0.830 Bone mineral density about the L hip (g/cm2): 0.867 T Score values are as follows: -----R Neck: -1.7 -----L Neck: -2.0 -----R Total: -1.4 -----L Total: -1.1 Z Score values are as follows: -----R Neck: -0.3 -----L Neck: -0.6 -----R Total: -0.2 -----L Total: 0.1 Bone mineral density has: Decreased -2.6% since study of: 04-06-2021 FRAX%s: The graph provided illustrates a 19% chance for a major osteoporotic fx and a 4.5% chance for the hips probability for fx in 10 years time. IMPRESSION: Osteopenia (T Score between -2.5 and -1). There is slightly increased risk of fracture and the patient may be considered for treatment. Re-Screen 2-5 years. NOTE: T-SCORE=SD OF THE YOUNG ADULT MEAN.
== END | disposition home or self-care (01) ==
LOC: RADBDWWP 11:01
PROVIDERS: ATTEND Internal Medicine
DX: M85.851 Other specified disorders of bone density and structure, right thigh (principal); M85.852 Other specified disorders of bone density and structure, left thigh; Z78.0 Asymptomatic menopausal state
CPT/HCPCS: 77080

== ENCOUNTER 2023-08-15 10:19 | Inpatient (IN) | payer MEDICARE, OTHER ==
[2023-08-09 11:54] VITALS: BMI 32.5
[~2023-08-15 10:19] MED LIST changes: -IV FLUID CONTINUATION 1,000 ML IV ONE; -LACTATED RINGERS 1,000 ML IV SCH; -MIDAZOLAM 2 MG/2 ML VIAL ONE; -ROPIVACAINE 5MG/ML 20ML VIAL ONE; +ceFAZolin 1,000 MG in SODIUM CHLORIDE 0.9% IRRIGATIO 1,000 ML IRRIGATION PRN; +fentaNYL (PF) 50 MCG/ML 2 ML AMP IV PRN; -fentaNYL (PF) 50 MCG/ML 2 ML AMP ONE; -methylPREDNISolone ACETATE 40 MG/ML 1 ML VIAL ONE
[2023-08-15 11:02] LABS: Glucose,Whole Blood 141 mg/dL (70-110)
[2023-08-15] MEDS: LACTATED RINGERS 1,000 ML IV SCH (11:05)
[2023-08-15] MEDS: ONDANSETRON 4 MG/2 ML VIAL IVP ONE ×2 (11:08→17:50)
[2023-08-15] MEDS ORDERED: LIDOCAINE 1% INJ 10MG/ML (20 ML MDV) ONE (12:03)
[2023-08-15] MEDS ORDERED: ROCURONIUM 10 MG/ML (5 ML VIAL) IV ONE (12:03)
[2023-08-15] MEDS ORDERED: MIDAZOLAM 2 MG/2 ML VIAL ONE (12:03)
[2023-08-15] MEDS ORDERED: NEOSTIGMINE 1 MG/ML 10 ML VIAL ONE (12:03)
[2023-08-15] MEDS ORDERED: PHENYLEPHRINE 10 MG/ML VIAL ONE (12:03)
[2023-08-15] MEDS ORDERED: GLYCOPYRROLATE 0.2 MG/ML 2 ML VIAL ONE (12:03)
[2023-08-15] MEDS ORDERED: KETAMINE HCL IN 0.9 % NACL 50 MG/5 ML SYRINGE ONE (12:03)
[2023-08-15] MEDS ORDERED: fentaNYL (PF) 50 MCG/ML 2 ML AMP ONE (12:03)
[2023-08-15] MEDS ORDERED: PROPOFOL 10 MG/ML 20 ML VIAL IV ONE (12:03)
[2023-08-15] MEDS ORDERED: HYDROmorphone (PF) 1 MG/ML ONE (12:03)
[2023-08-15] MEDS ORDERED: SUCCINYLCHOLINE CHLORIDE 200 MG/10 ML VIAL IV ONE (12:03)
[2023-08-15] MEDS: ceFAZolin 1,000 MG in SODIUM CHLORIDE 0.9% IRRIGATIO 1,000 ML IRRIGATION PRN (12:08)
[2023-08-15] MEDS: BUPIVACAIN-EPI 0.5%-1:200,000 30 ML VIAL SQ ONE (12:49)
[2023-08-15] MEDS: LIDOCAINE 2%-EPI 1:100,000 20 ML VIAL SQ ONE (12:49)
[2023-08-15] MEDS: GELATIN SPONGE,ABSORB (LARGE) 1 EACH SPONGE TOPICAL ONE (12:49)
[2023-08-15] MEDS: THROMBIN (BOVINE) 5,000 UNIT VIAL TOPICAL ONE (12:49)
[2023-08-15] MEDS: LACTATED RINGERS 1,000 ML IV ONE ×3 (13:45→16:47)
[2023-08-15] MEDS ORDERED: BENZOCAINE/MENTHOL LOZENG 1 EACH LOZENGE MUCOUS MEM PRN (17:10)
[2023-08-15] MEDS ORDERED: MAGNESIUM HYDROXIDE 2,400 MG/30 ML CUP PO PRN (17:10)
[2023-08-15] MEDS ORDERED: [UNRECOGNIZED DRUG - OTHER] PO PRN (17:12)
[2023-08-15] MEDS ORDERED: SOD BICARB PO PRN (17:12)
[2023-08-15] MEDS ORDERED: ALGINC PO PRN (17:12)
[2023-08-15] MEDS ORDERED: MAG PO PRN (17:12)
[2023-08-15] MEDS ORDERED: IPRATROPIUM-ALBUTEROL 3 ML NEB INHALATION PRN (17:12)
[2023-08-15] MEDS ORDERED: ALUMINUM PO PRN (17:12)
--- NOTE | 2023-08-15 17:15 | FL ---
EXAMINATION TYPE: FL guidance operating room, XR lumbar spine 2 or 3V Intraoperative/procedural fluor oscopic services were provided. Total fluoroscopy time is 22 seconds with a total of 5 submitted imag es to PACS. Please see the operative/procedural note for further details. DAP: [id number] mGym2
--- NOTE | 2023-08-15 17:24 | P.OP ---
Date of Procedure: 08/15/23 Preoperative Diagnosis: Degenerative scoliosis, degenerative disc disease, spinal stenosis, lower extremity radiculopathy, low back pain, facet arthrosis, neurogenic claudication Postoperative Diagnosis: Same Anesthesia: GETA Pathology: none sent Condition: stable Disposition: PACU Description of Procedure: DESCRIPTION OF PROCEDURE(S): BRIEF OPERATIVE NOTE Preoperative Diagnosis: Degenerative scoliosis, degenerative disc disease, spinal stenosis, lower extremity radiculopathy, low back pain, facet arthrosis, neurogenic claudication Postoperative Diagnosis: Same Procedure: Laminectomy and decompression L2-3 L3-4 L4-[address] navigation aided Minimally invasive Posterior lateral decompression and facet fusion L2-3 L3-4 L4-5 Minimally invasive Transforaminal lumbar interbody fusion for a 360 fusion L2-3 L3-4 L4-5 Discectomy for decompression L2-3 L3-4 L4-5 Placement of interbody graft L2-3 L3-4 L4-5 Use of computer navigation for fusion L2-3-4 and 5 Local autogenous bone grafting Aspiration of bone marrow from the vertebral body pedicle at L2 on the right Use of bone graft extenders Surgeon: Dr. Metzger Fiction And Nonfiction Prose Writer: Atilio HERRERA who is present throughout the entire the case persistence during positioning, dissection, exposure, visualization, and all crucial elements of the case as well as closure. Anesthesia: General anesthesia per Dr. Moya Estimated blood loss: Approximately 350 mL, with 250 given back through [employer] Complications: None apparent Components implanted: K2M minimally invasive [place] pedicle screw system withscrews measuring 6.5 mm in diameter to rods to [place] Anchorage interbody cages and one expandable interbody cage with 10 mL of osteo amp bio4 bone graft substitute and 30 mL of the BX bone fibers to supplement the local autogenous bone graft and bone marrow aspirate Disposition: To recovery room in good stable condition. OPERATIVE INDICATIONS The patient has had severe issues at their lower extremity in her lower back over the past several years with significant worsening over the past several months. Over the past few months the patient had pain at their back and their lower extremities. The patient is having severe radicular symptoms at their lower extremity with weakness. Patient demonstrates issues with neurogenic claudication and is limited walking as well. The patient is having significant pain in their back. They are unable to obtain any comfort. She was found to have degenerative scoliosis as well as foraminal stenosis and symptoms correlated with her imaging findings. We did aggressive conservative treatment with medications therapy and interventional pain management however thery were not having any relief. The patient has been through conservative treatment. We discussed various treatment options including surgery, and the patient wishes to proceed with surgery We discussed the risk, patient's alternatives and benefits of surgery including but not limited to, risk of bleeding risk of infection, risk of need for further surgery, risk of decreased, loss of motion, muscle function, malunion nonunion, hardware failure, nerve damage, paralysis, heart attack, blindness and . They understood issues with the current pandemic and the possibility of exposure. OPERATIVE SUMMARY After discussing all the risks, patient alternatives and benefits at length, the patient elected to proceed with surgical intervention, signed informed consent, and presented for their procedure. The patient was seen and examined in the preoperative holding area and the surgical site was marked. The patient was given antibiotics and brought to the operating room. The patient was sedated and intubated by anesthesia in standard fashion. The patient was positioned on to the operating room table in a prone position on the appropriate frame which was well-padded and well molded. We were careful to pad any bony prominences and pressure points. We were careful to maintain the patient's cervical spine and good neutral alignment and position throughout. The patient was prepped and draped in a normal standard fashion. An appropriate timeout and keystone protocol performed. We were able to proceed with the surgery. The local wound area was infiltrated with local anesthetic. Over the right iliac crest I was able to make small stab incisions and establish a guidepin screw fixation to the iliac crest 2. I was able place the computer referencing device over the guidepins to establish an appropriate reference point for the Ziem CT navigation. We then were able to place patient in an appropriate drape and do a navigation spin for visualization and 3-D reconstruction of the lumbar spine. I was able utilize C-arm guidance and navigation to establish appropriate position over the pedicles bilaterally at the appropriate levels . With the appropriate levels confirmed was able to make small incisions over the appropriate pedicle sites bilaterally at L2-L3-L4 and L5. Utilizing the computer navigation device I was able to establish bony landmarks at the right iliac crest for a bony reference point for the navigation device. I was able to establish a Jamshidi needle over the lateral aspect of the pedicle and advanced the trocar into the pedicle being careful not to breech superiorly inferiorly medially or laterally using computer navigation device. Position was confirmed regularly with AP and lateral images on C-arm and with the computer navigation device at the appropriate levels bilaterally at L2-L3-L4 and L5. I was able to establish the trocar into the pedicle appropriately into the posterior aspect of the vertebral body bilaterally at the appropriate levels. This was done at each of the pedicle positions and each of the vertebrae. At the superior vertebrae I was able to take approximately 1 at L2 on the right 5 mL of bone aspiration for use later in the case to supplement the allograft and autograft bone. I was able place the guidewire into the trocar and into the vertebral body appropriately under C-arm guidance. Dissection was taken down over the wire to the appropriate starting position for the screw placed. The appropriate length screw was chosen, threaded over the guidewire and screwed appropriately into the pedicle and vertebral body under C-arm guidance in excellent alignment and position with good bony purchase. This is done at each of the screw sites at the appropriate levels at L2-L3-L4 and L5. With the screws intact I extended the incision to connect the screw hole sites on the most symptomatic side on the left. I dissected down to establish access over the pars and lamina to the base of the spinous process. I was able to expose the facet joint. The capsule the facet was taken down and showed some facet arthrosis at the joint. I was able to use a combination of curettes and Kerrison rongeurs and a high-speed drill to take down the facet joint and do a facetectomy. I was able get excellent foraminal decompression and central decompression with undermining across midline to perform a laminectomy centrally and contralaterally. I was able get good central decompression at each of the levels. The ligamentum flavum was taken down to further decompress centrally and at bilateral neural foramen. At L2-3 and L3-4 there is some cystic material and some confluence of fatty tissue along the midline dorsally which was removed to provide further decompression. I was able to expose the disc space and visualize the traversing nerve root. Note was made of some disc protrusion and disc herniation that was abutting the traversing nerve root at the level causing further compression of the nerve root. I was able to establish a annulotomy at the appropriate level protecting soft tissue and neural structures. Note was made of some disc desiccation at the disc. I performed a complete discectomy with accommodation of curettes and rasps and scrapers. I was able get good endplate preparation at the disc space. I sized for the appropriate size interbody spacer protecting the soft tissue and neural structures. The wound was copiously irrigated and suctioned dry. There is no evidence of any dural tear or leak. I was able to pack the disc space with local autogenous bone graft as well as a small amount of bone graft which was also placed into the interbody cage itself. Protecting the soft tissue structures and neural structures I was able place the interbody cage in good alignment and good position with good fit and fill at the interbody space. At L2-3 and L3-4 I used a [place] titanium cage and at L4-5 I used an expandable cage. Position was confirmed with C-arm guidance. Good hemostasis maintained. There is no evidence of any dural tear or leak. The wound was irrigated and suctioned dry. With the hardware intact, intraoperative C-arm imaging was again taken which showed good alignment and position of the hardware at the appropriate levels at L2-3 L3-4 and L4-5. We were then able to measure, contour and place the rods and appropriate hardware bilaterally. I was able to place capcrews, tighten them down, and torque them with the torque screwdriver appropriately. With this intact I was able to place the local autogenous bone graft with additional bone graft enhancer as necessary into the posterior lateral gutters over the decorticated transverse processes and facet joints on the contralateral side on the right. The remainder of the bone graft was placed over the facet joint on the contralateral side after taking down the facet joint capsule. With the bone graft intact, a stable construct, and good decompression at the appropriate levels, we were able to proceed with closure. Good hemostasis was maintained. There is no evidence of dural tear or leak. The fascia was closed for a water tight closure. he subcuticular tissue was closed with absorbable suture. The wound was cleaned and dried and dressed with the appropriate dressing. The drapes were broken down. The patient was gently rolled back onto their hospital bed being careful to maintain their cervical spine and good neutral alignment and position. They were woken up by anesthesia, extubated, and brought to the recovery room in good stable condition. The patient will be admitted to the hospital for appropriate postoperative care, medical management and monitoring. We will continue to follow them closely about the postoperative course.
[2023-08-15 17:36] LABS: Glucose,Whole Blood 162 mg/dL (70-110)
[2023-08-15 21:02] LABS: Glucose,Whole Blood 156 mg/dL (70-110)
[2023-08-15] MEDS: DILTIAZEM CD 120 MG CAP.ER.24H PO SCH (21:10)
[2023-08-15] MEDS: FAMOTIDINE 20 MG TAB PO SCH (21:10)
[2023-08-15] MEDS: MONTELUKAST 10 MG TAB PO SCH (21:11)
[2023-08-15] MEDS: ASPIRIN 81 MG PO SCH (21:11)
[2023-08-15] MEDS: METOPROLOL SUCCINATE (ER) 25 MG TAB.ER.24H PO SCH (21:11)
[2023-08-15] MEDS: FLECAINIDE 50 MG TAB PO SCH (21:11)
[2023-08-15] MEDS: ONDANSETRON 4 MG/2 ML VIAL IVP PRN (21:16)
[2023-08-15] MEDS: SYMBICORT 160-4.5 MCG INHALER INHALATION SCH (21:23)
[2023-08-15] MEDS: PATIENT'S OWN (Rosuvastatin 10 MG Tablet) PO SCH (21:31)
[2023-08-15] MEDS: HYDROcodone/APAP 5-325MG 1 EACH TAB PO PRN (22:47)
[2023-08-15] MEDS: HYDROmorphone 1 MG/ML 1 ML SYRINGE IVP PRN (23:50)
[2023-08-16] MEDS: METOCLOPRAMIDE 5 MG/ML 2 ML VIAL IVP PRN (00:09)
[2023-08-16] MEDS: SODIUM CHLORIDE 0.9% 1,000 ML IV SCH (00:35)
[2023-08-16 06:20] LABS: Glucose,Whole Blood 147 mg/dL (70-110)
[2023-08-16] MEDS: LEVOTHYROXINE 112 MCG TAB PO SCH (06:25)
[2023-08-16] MEDS: CYCLOBENZAPRINE 10 MG TAB PO PRN (07:59)
[2023-08-16] MEDS: SENNOSIDES-DOCUSATE SODIUM 1 EACH TAB PO SCH (07:59)
[2023-08-16] MEDS: CHOLECALCIFEROL 125 MCG (5000 IU) TABLET PO SCH (07:59)
[2023-08-16] MEDS: FLUoxetine HCL 20 MG CAP PO SCH (07:59)
[2023-08-16] MEDS: PIOGLITAZONE 15 MG TAB PO SCH (08:00)
--- NOTE | 2023-08-16 10:20 | P.PN ---
Progress Note - Text Progress Note Date: 08/16/23 Postoperative day #1 Patient is seen and examined today at bedside. The patient has some pain around the surgical site as expected. Pain is being controlled with medication. She has some nausea with oral medications but is tolerating the Dilaudid well. She has been able to have breakfast without nausea or vomiting today Physical Exam Afebrile with stable vital signs Abdomen is soft nontender. Chest has good excursion deep and space expiration The incision site is clean dry and intact. No erythema there is no purulence. Extremities have not had neurologic change from prior to surgery. She has sustained dorsiflexion plantarflexion EHL intact Calves and thighs were soft nontender without evidence of DVT. Assessment/Plan Postoperative day #1 status post minimally invasive decompression fusion for her degenerative scoliosis with spinal stenosis and lower extremity radiculopathy Patient is progressing as expected from the surgery. She will have her Garza discontinued later today. We will continue to increase the patient's mobilization with therapy. She is interested in the possibility of longterm placement post hospitalization and I think that is reasonable for her. We have case management see her as well. We will continue pain control with oral or IV medications. We'll continue to follow patient closely.
[2023-08-16 11:26] LABS: Basophils # (A) 0.01 X 10*3/uL (0.00-0.10); Basophils % (A) 0.1 %; Eosinophils # (A) 0 X 10*3/uL (0.04-0.35); Eosinophils % (A) 0 %; HCT 36.9 % (37.2-46.3); HGB 12.5 g/dL (12.0-15.0); Lymphocytes # (A) 1.05 X 10*3/uL (0.90-5.00); Lymphocytes % (A) 10.9 %; MCH 29.7 pg (27.0-32.0); MCHC 33.9 g/dL (32.0-37.0); MCV 87.6 FL (80.0-97.0); Mean Platelet Volume 10.3 FL (9.5-12.2); Monocytes # (A) 1.09 X 10*3/uL (0.20-1.00); Monocytes % (A) 11.3 %; NRBC Per 100 WBC 0 X 10*3/uL (0.00-0.01); Neutrophils # (A) 7.43 X 10*3/uL (1.80-7.70); Neutrophils % (A) 77.4 %; Platelet Count 160 X 10*3/uL (140-440); RBC 4.21 X 10*6/uL (4.10-5.20); RDW 12.4 % (11.5-14.5); WBC 9.61 X 10*3/uL (4.50-10.00)
[2023-08-16 11:51] LABS: Glucose,Whole Blood 157 mg/dL (70-110)
[2023-08-16 11:52] LABS: Blood Urea Nitrogen 14.8 mg/dL (9.0-27.0); Chloride 105 mmol/L (96-109); Glucose 151 mg/dL (70-110); Potassium 4.4 mmol/L (3.5-5.5); Sodium 140 mmol/L (135-145)
[2023-08-16 11:53] LABS: Calcium 8.5 mg/dL (8.7-10.3); Carbon Dioxide 24.8 mmol/L (21.6-31.8)
[2023-08-16 17:04] LABS: Glucose,Whole Blood 133 mg/dL (70-110)
--- NOTE | 2023-08-16 18:10 | P.CONS ---
History of Present Illness - Reason for Consult Consult date: 08/16/23 Medical management Requesting physician: Zachary Metzger - Chief Complaint Status post laminectomy with decompression of L2-L3 L3-L4 L4-L5 with fusion - History of Present Illness HISTORY OF PRESENT ILLNESS: This is a 77-year-old female 1 DC patient with a previous medical history significant for hypertension and hypertensive cardiovascular disease, hyperlipidemia, diabetes mellitus type 2, history of atrial fibrillation, hypothyroidism, GERD with esophagitis, history of degenerative disc disease of the lumbar spine with spinal stenosis and radiculopathy and chronic low back pain, patient underwent decompression and laminectomy of L2-L3 L3-L4 L4-L5 with fusion that was done successfully by Dr. Metzger and I was asked to see the patient for postoperative medical management. Patient is lying down in her recliner chair she is complaining of significant amount of pain in the lumbar spine, she denies any chest pain at this time, she has no shortness of breath, she has no abdominal pain, she had multiple episode of nausea and vomiting yesterday despite using Zofran, she was given a prescription of metoclopramide 5 mg IV push every 6 hours, she seems to be tolerating diet very well, she has not gone to the bathroom yet, she has a Garza catheter in place, we will continue to monitor the patient very closely. REVIEW OF SYSTEMS: Constitutional: No documented fever, no chills, no night sweats. No weight change. No weakness, fatigue or lethargy. No daytime sleepiness. EENT: No headache. No blurred vision or double vision, no loss of vision. No loss of Hearing, no ringing in the ears, no dizziness. No nasal drainage or congestion. No epistaxis. No sore throat. Lungs: No shortness of breath, no cough, no sputum production. No wheezing. R eports dyspnea with activity. Cardiovascular: No chest pain, no lower extremity edema. No palpitations. No paroxysmal nocturnal dyspnea. No orthopnea. No lightheadedness or dizziness. No syncopal episodes. Abdominal: Reports no abdominal pain. positive for nausea, vomiting. No diarrhea. No constipation. No bloody or tarry stools reports loss of appetite. Genitourinary: No dysuria, increased frequency, urgency. No urinary retention.Garza catheter in place Musculoskeletal: No myalgias. No muscle weakness, no gait dysfunction, no frequent falls. No back pain. No neck pain. Integumentary: Back wound with dressing no lesions. No rash or pruritus. No unusual bruising. No change in hair or nails. Neurologic: No aphasia. No facial droop. No change in mentation. No head injury. No headache. No paralysis. No paresthesia. Psychiatric: No depression. No anxiety. No mood swings. Endocrine: No abnormal blood sugars. No weight change. PAST MEDICAL HISTORY: Hypertension and hypertensive cardiovascular disease. Hyperlipidemia. Diabetes mellitus type 2. Hypothyroidism. Atrial fibrillation. 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 Osteoarthritis. GERD with esophagitis. PAST SURGICAL HISTORY: Tonsillectomy and adenoidectomy Cholecystectomy 2016 3 right breast biopsy and lumpectomy Left knee arthroscopic meniscal tear repair Left knee septic arthritis Left total knee arthroplasty Left heart catheterization 2014 and was normal Cold knife conization Bilateral cataract surgery Colonoscopy Right big toe spur removal Inguinal lymph node excision SOCIAL HISTORY: Patient is a lifelong non-smoker, she denies any alcohol ingestion, she uses CBD Gummies as well as THC. FAMILY HISTORY: Father at age of 60 from suicide and had a long history of depression mother at the age of 83 from renal failure due to sepsis and had history of hypertension, patient has 1 brother with CAD post PCI and history of hypertension, and schizophrenia 1 sister at the age of 80 from CVA patient has 2 sons alive and well. PHYSICAL EXAMINATION: General: 77-year-old female laying down in her recliner in no apparent distress. HEENT: Head is atraumatic, normocephalic, pupils were equal round reactive to light and recommendation, extraocular muscle movement were intact, sclera nonicteric, conjunctivae were pale, mucous membranes of the mouth are somewhat dry. Neck: Supple, no JVP, normal carotid upstroke bilaterally, no lymphadenopathy. Chest: Decreased breath sounds at the bases, few rhonchi, no expiratory wheezes, no chest wall tenderness, no intercostal retractions. Heart: First heart sound is normal, second heart sound is normal there is systolic ejection murmur 2/6 located in the left sternal border. Abdomen: Soft, nontender, nondistended, positive bowel sounds. Extremities: There is no edema no calf tenderness DP +2 bilaterally. Neurologic examination: Patient is awake alert and oriented x3, cranial nerves II-12 appear grossly intact, muscle power were 5 out of 5 in upper extremities and 5 out of 5 in bilateral lower extremities, deep tendon reflexes normal bilaterally. ASSESSMENT AND PLAN: 1. Postoperative day #1 status post laminectomy with decompression of L2-L3 L3- L4 and L4-L5 with fusion along with bone graft. Continue current pain management as outlined by spine surgery, patient was instructed to use the incentive spirometer to reduce the incidence of atelectasis and healthcare associated pneumonia, early ambulation, discontinue Garza catheter in the next 24 hours, monitor the patient input and output and daily weight, we will monitor the patient very closely, patient has been started on cyclobenzaprine as well as hydrocodone and Dilaudid for breakthrough pain. 2. Hypertension and hypertensive cardiovascular disease. Continue metoprolol 25 mg orally twice every day as well as Cardizem CD1 20 mg once every day monitor the patient blood pressure very closely. 3. Mixed hyperlipidemia. Continue patient on rosuvastatin 10 mg once every day. 4. Hypothyroidism. Continue Synthroid 112 mcg orally once every day, monitor the patient TSH and free T4. 5. Diabetes mellitus type 2. Continue patient on Actos 15 mg once every day, we will continue with the sliding scale insulin as well, monitor Accu-Chek before each meal and at bedtime. 6. Intractable nausea and vomiting likely related to a combination of anesthesia as well as pain management. Continue metoclopramide 5 mg IV push every 6 hours as needed, continue Zofran as needed. 7. Paroxysmal atrial fibrillation. Continue patient on flecainide 50 mg orally twice every day. Patient has been off Eliquis for now. 8. Anxiety disorder. Continue fluoxetine 20 mg orally once every day. 9. GERD with esophagitis. Continue Pepcid 20 mg orally once every day. 10. History of asthma. Continue patient on montelukast 10 mg once every day, Symbicort 160/4.5 mcg 2 puffs inhalation twice every day continue nebulized treatment in the form of DuoNeb 3 mm nebulization 4 times every day. 11. DVT prophylaxis. Early ambulation as well as bilateral knee-high KATE hose and bilateral SCDs. 12. GI prophylaxis. Continue with famotidine 20 mg once every day. 13. Thank you for the consult we will follow the patient with you. Past Medical History Past Medical History: Atrial Fibrillation, Asthma, Cancer, Diabetes Mellitus, GERD/Reflux, Hyperlipidemia, Osteoarthritis (OA), Renal Disease, Thyroid Disorder Additional Past Medical History / Comment(s): Hashimotos, back/neck pain- DDD, SPINAL STENOSIS, KIDNEY STONES, UTI, vertigo, pinched nerve, elevated triglycerides, stage 3 kidney disease, skin cancer. History of Any Multi-Drug Resistant Organisms: None Reported Past Surgical History: Adenoidectomy, Breast Surgery, Section, Cholecystectomy, Heart Catheterization, Joint Replacement, Orthopedic Surgery, Tonsillectomy Additional Past Surgical History / Comment(s): Thyroidectomy, LT KNEE REPLACEMENT(HAD SEVERAL SX ON THAT KNEE), ONE HAD A TORN MENISCUS Lt knee-HAD SX THEN GOT INFECTION /SEPTIC HAD TO REOPEN left knee) MILES CARPAL TUNNEL, Cold Knife Conization, 3 RT BREAST LUMPECTOMY, miles cataracts. Past Anesthesia/Blood Transfusion Reactions: Motion Sickness, Postoperative Nausea & Vomiting (PONV) Additional Past Anesthesia/Blood Transfusion Reaction / Comm: No hx blood transfusion. Past Psychological History: Anxiety, Depression Additional Psychological History / Comment(s): . Smoking Status: Never smoker Past Alcohol Use History: Occasional Past Drug Use History: Marijuana Additional Drug Use History / Comment(s): cbd oil/gummies. Pt instructed no Marijuana 24hrs prior to procedure. - Past Family History Daughter(s) Additional Family Medical History / Comment(s): has 2 sons, daughter is Mother Family Medical History: No Reported History Additional Family Medical History / Comment(s): . Medications and Allergies Home Medications Medication Instructions Recorded Confirmed Type Aspirin 81 mg PO HS 11/03/14 08/09/23 History Cholecalciferol [Vitamin D3 (25 5,000 unit PO QAM 11/03/14 08/09/23 History Mcg = 1000 Iu)] FLUoxetine HCL [PROzac] 20 mg PO QAM 11/03/14 08/09/23 History Levothyroxine Sodium [Synthroid] 112 mcg PO QAM 07/27/16 08/09/23 History estradioL [Vagifem] 10 mcg VAGINAL Q72H 07/27/16 08/09/23 History Ipratropium/Albuterol Sulfate 1 puff INHALATION DAILY PRN 11/29/17 08/09/23 History [Combivent Respimat Inhaler] Magnus Red 500 mg PO DAILY 11/29/17 08/09/23 History Mag/Aluminum/Sod Bicarb/Alginc 1 tab PO DAILY PRN 02/09/19 08/09/23 History [Gaviscon 80-14.2 mg Tab Chew] Metoprolol Succinate (ER) [Toprol 25 mg PO BID 02/09/19 08/09/23 History XL] Famotidine [Pepcid] 20 mg PO HS 06/09/21 08/09/23 History dilTIAZem HCL [Diltiazem HCl 24Hr 120 mg PO HS 06/09/21 08/09/23 History ER (CD)] Acetaminophen Tab [Tylenol Tab] 1,000 mg PO Q6HR PRN 08/09/23 08/09/23 History Flecainide [Tambocor] 50 mg PO BID 08/09/23 08/09/23 History Fluticasone Propion/Salmeterol 1 puff INHALATION BID 08/09/23 08/09/23 History [Fluticasone-Salmeterol 230-21] Montelukast [Singulair] 10 mg PO HS 08/09/23 08/09/23 History Pioglitazone [Actos] 15 mg PO QAM 08/09/23 08/09/23 History Rosuvastatin [Crestor] 10 mg PO HS 08/09/23 08/09/23 History Allergies Allergy/AdvReac Type Severity Reaction Status Date / Time atorvastatin calcium Allergy Itching Verified 08/15/23 11:01 [From Lipitor] codeine AdvReac Nausea Verified 08/15/23 11:01 erythromycin base AdvReac Abdominal Verified 08/15/23 11:01 Pain Iodinated Contrast Media AdvReac KIDNEY Verified 08/15/23 11:01 [Iodinated Contrast Media - ISSUES--nephro Oral and] does not want morphine AdvReac Nausea Verified 08/15/23 11:01 sulfamethoxazole AdvReac kidney Verified 08/15/23 11:01 [From Bactrim] issues--nephro does not want trimethoprim [From Bactrim] AdvReac kidney Verified 08/15/23 11:01 issues--nephro does not want yeast, dried [yeast] AdvReac sinus Verified 08/15/23 11:01 issues Physical Exam Vitals: Vital Signs Temp Pulse Resp BP Pulse Ox 08/16/23 16:09 99.5 F 104 H 17 103/57 97 08/16/23 08:00 18 08/16/23 07:19 98.6 F 89 17 100/61 95 08/16/23 03:10 98.6 F 90 18 106/63 95 08/16/23 01:37 98.9 F 93 20 92/51 95 08/15/23 21:00 84 111/64 94 L 08/15/23 20:45 87 109/69 95 08/15/23 20:30 83 110/65 93 L 08/15/23 20:15 83 107/63 94 L 08/15/23 20:00 83 109/65 94 L 08/15/23 19:45 83 109/65 95 08/15/23 19:30 80 96/60 94 L 08/15/23 19:15 80 105/63 94 L 08/15/23 19:00 79 109/61 94 L 08/15/23 18:08 80 11 L 109/56 95 08/15/23 17:53 81 13 102/58 96 Intake and Output 08/16/23 08/16/23 08/16/23 06:59 14:59 22:59 Intake Total 250 Output Total 475 200 Balance -475 250 -200 Intake: Oral 250 Output: Urine 475 200 Other: Voiding Method Indwelling Catheter Weight 87.5 kg Results CBC & Chem 7: 08/16/23 06:54 08/16/23 06:54 Labs: Abnormal Lab Results - Last 24 Hours (Table) 08/15/23 08/16/23 08/16/23 Range/Units 20:43 06:17 06:54 Hct 36.9 L (37.2-46.3) % Monocytes # 1.09 H (0.20-1.00) X 10*3/uL Eosinophils # 0 L (0.04-0.35) X 10*3/uL Glucose (70-110) mg/dL POC Glucose (mg/dL) 156 H 147 H (70-110) mg/dL Calcium (8.7-10.3) mg/dL 08/16/23 08/16/23 08/16/23 Range/Units 06:54 11:50 17:03 Hct (37.2-46.3) % Monocytes # (0.20-1.00) X 10*3/uL Eosinophils # (0.04-0.35) X 10*3/uL Glucose 151 H (70-110) mg/dL POC Glucose (mg/dL) 157 H 133 H (70-110) mg/dL Calcium 8.5 L (8.7-10.3) mg/dL
[2023-08-16 20:37] LABS: Glucose,Whole Blood 190 mg/dL (70-110)
[2023-08-16] MEDS: INSULIN ASPART (NovoLOG) 100 UNIT/ML VIAL SQ SCH (21:31)
[2023-08-16] MEDS: ESTRADIOL 10 MCG VAGINAL SCH (21:33)
[2023-08-17 05:26] LABS: Glucose,Whole Blood 156 mg/dL (70-110)
[2023-08-17] MEDS: LACTULOSE 20 GM/30 ML CUP PO SCH (09:17)
[2023-08-17 10:28] LABS: Basophils # (A) 0.01 X 10*3/uL (0.00-0.10); Basophils % (A) 0.1 %; Eosinophils # (A) 0.04 X 10*3/uL (0.04-0.35); Eosinophils % (A) 0.4 %; HCT 32.6 % (37.2-46.3); HGB 10.9 g/dL (12.0-15.0); Lymphocytes # (A) 1.01 X 10*3/uL (0.90-5.00); Lymphocytes % (A) 11.2 %; MCH 29.1 pg (27.0-32.0); MCHC 33.4 g/dL (32.0-37.0); MCV 86.9 FL (80.0-97.0); Mean Platelet Volume 9.9 FL (9.5-12.2); Monocytes # (A) 0.94 X 10*3/uL (0.20-1.00); Monocytes % (A) 10.4 %; NRBC Per 100 WBC 0 X 10*3/uL (0.00-0.01); Neutrophils # (A) 6.94 X 10*3/uL (1.80-7.70); Neutrophils % (A) 77.2 %; Platelet Count 122 X 10*3/uL (140-440); RBC 3.75 X 10*6/uL (4.10-5.20); RDW 12.5 % (11.5-14.5)
[2023-08-17 10:38] LABS: ALT 20 U/L (8-44); AST 73 U/L (13-35); Albumin 3.5 g/dL (3.8-4.9); Albumin/Globulin Ratio 2.19 Ratio (1.60-3.17); Alkaline Phosphatase 69 U/L (41-126); BUN/Creat Ratio 14.57 Ratio (12.00-20.00); Blood Urea Nitrogen 10.2 mg/dL (9.0-27.0); Calcium 8.5 mg/dL (8.7-10.3); Carbon Dioxide 27.2 mmol/L (21.6-31.8); Chloride 103 mmol/L (96-109); Globulin 1.6 g/dL (1.6-3.3); Glucose 162 mg/dL (70-110); Potassium 4.3 mmol/L (3.5-5.5); Sodium 138 mmol/L (135-145); Total Bilirubin 1.5 mg/dL (0.3-1.2); Total Protein 5.1 g/dL (6.2-8.2)
[2023-08-17] MEDS ORDERED: SENNOSIDES-DOCUSATE SODIUM 1 EACH TAB PO PRN (10:54)
--- NOTE | 2023-08-17 10:56 | P.PN ---
Progress Note - Text Progress Note Date: 08/17/23 Orthopedic Spine History of present illness: Patient is a pleasant 77-year-old female who is seen and examined at the bedside following posterior lateral decompression and fusion performed Sunday. Patient states they are doing well post operatively. She has continued to improve postoperatively. She has been working with physical therapy. She is currently planning for discharge to a rehabilitation facility at time of discharge. Case management states patient will not be able to discharge to rehab due to insurance authorization until this coming 08/20/2023. If the patient continues to improve, we could consider discharge home over the weekend. Currently does not complain of nausea, vomiting, fever, or chills. Patient states pain has been adequately controlled. Patient is eating and voiding freely without difficulty. Her Garza catheter has been discontinued. She has not had a bowel movement and is not passing much gas but does not have any abdominal pain. We will continue with medications to help facilitate a bowel movement. She is being seen and examined by medicine for her multiple other medical diagnoses. Physical Exam Lumbar Fusion: Status post surgical day number 2 Patient is awake, alert, and oriented 3 Vital signs stable Good chest excursion with deep inspiration and expiration Abdomen slightly firm but nontender Dorsiflexion, plantarflexion, and extensor hallucis longus positive sustained bilaterally No signs or symptoms of DVT; no calf pain; pneumatic cuffs intact bilateral lower extremities Optifoam dressings are dry and intact over the lumbar spine and right iliac cre st; no erythema, purulence, or signs of infection Evidence of some blood at the surgical dressing over the left lumbar surgical incision site Patient is able to roll over in bed independently without difficulty Neurovascularly intact bilaterally lower extremities Assessment: Status post L2-3, L3-4, and L4-5 minimally invasive posterior lateral decompression and fusion with transforaminal lumbar interbody fusion Lumbar degenerative scoliosis Lumbar degenerative disc disease Lumbar spinal stenosis Neurogenic claudication Low back pain with lower extremity radiculopathy Facet arthrosis Hyperlipidemia Hypertension Hypothyroidism Diabetes mellitus type 2 Paroxysmal atrial fibrillation Anxiety GERD Plan: 1. Ambulate as tolerated; work with Physical Therapy to increase mobilization 2. Continue pain control with IV and oral medications; will plan to begin weaning the patient off of IV narcotic medication in anticipation for discharge home in the next 1-2 days 3. Dressings to remain intact with Optifoam; patient may shower with dressings intact 4. Medical management can continue to manage patient for patient's other medical diagnoses 5. Patient does not have any significant abdominal pain but she is not passing gas and has not had a bowel movement. She is currently receiving Senokot-S, 1 tab daily, and milk of magnesia. Will plan to increase Senokot-S to twice daily and add MiraLAX to help facilitate a bowel movement. 6. We will continue to follow the patient closely. She is currently planning for discharge to a rehabilitation facility at time of discharge. Case management states patient will not be able to discharge to rehab due to insurance authorization until this coming 08/20/2023. If the patient continues to improve, we could consider discharge home over the weekend. 7. Patient can follow-up with Atilio Yen PA-C or Dr. Erich Metzger at [facility] in 2-3 weeks following discharge
[2023-08-17 11:52] LABS: Glucose,Whole Blood 139 mg/dL (70-110)
[2023-08-17] MEDS: HYDROcodone/APAP 7.5-325MG 1 EACH TAB PO PRN (12:25)
[2023-08-17] MEDS: polyethylene glycoL 3350 17 GM POWD.PACK PO SCH (12:27)
--- NOTE | 2023-08-17 14:10 | P.PN ---
Subjective Progress Note Date: 08/17/23 HISTORY OF PRESENT ILLNESS: This is a 77-year-old female 1 [place] patient with a previous medical h istory significant for hypertension and hypertensive cardiovascular disease, hyperlipidemia, diabetes mellitus type 2, history of atrial fibrillation, hypothyroidism, GERD with esophagitis, history of degenerative disc disease of the lumbar spine with spinal stenosis and radiculopathy and chronic low back pain, patient underwent decompression and laminectomy of L2-L3 L3-L4 L4-L5 with fusion that was done successfully by Dr. Metzger and I was asked to see the patient for postoperative medical management. Patient is lying down in her recliner chair she is complaining of significant amount of pain in the lumbar spine, she denies any chest pain at this time, she has no shortness of breath, she has no abdominal pain, she had multiple episode of nausea and vomiting yesterday despite using Zofran, she was given a prescription of metoclopramide 5 mg IV push every 6 hours, she seems to be tolerating diet very well, she has not gone to the bathroom yet, she has a Garza catheter in place, we will continue to monitor the patient very closely. 08/16: Patient is laying down in bed her was at the bedside, she is not eating much, she is about 25% of her diet, patient was instructed about in creasing her activity level, Garza catheter is removed, continue physical therapy evaluation, continue current pain management, continue the usage of incentive spirometer she was instructed to use it 10 times an hour, patient's pain management will be optimized we will increase the [place] to 7.5/325 mg 1 tablet every 4 hours as needed, also she has not had a bowel movement, will start her on lactulose 20 g orally twice every day as well as Senokot twice every day, monitor the patient very closely. REVIEW OF SYSTEMS: Constitutional: No documented fever, no chills, no night sweats. No weight c hange. No weakness, fatigue or lethargy. No daytime sleepiness. EENT: No headache. No blurred vision or double vision, no loss of vision. No loss of Hearing, no ringing in the ears, no dizziness. No nasal drainage or congestion. No epistaxis. No sore throat. Lungs: No shortness of breath, no cough, no sputum production. No wheezing. Reports dyspnea with activity. Cardiovascular: No chest pain, no lower extremity edema. No palpitations. No paroxysmal nocturnal dyspnea. No orthopnea. No lightheadedness or dizziness. No syncopal episodes. Abdominal: Reports no abdominal pain. positive for nausea, vomiting. No diarrhea. No constipation. No bloody or tarry stools reports loss of appetite. Genitourinary: No dysuria, increased frequency, urgency. No urinary retention.Garza catheter in place Musculoskeletal: No myalgias. No muscle weakness, no gait dysfunction, no frequent falls. No back pain. No neck pain. Integumentary: Back wound with dressing no lesions. No rash or pruritus. No unusual bruising. No change in hair or nails. Neurologic: No aphasia. No facial droop. No change in mentation. No head injury. No headache. No paralysis. No paresthesia. Psychiatric: No depression. No anxiety. No mood swings. Endocrine: No abnormal blood sugars. No weight change. PHYSICAL EXAMINATION: General: 77-year-old female laying down in her recliner in no apparent distress. HEENT: Head is atraumatic, normocephalic, pupils were equal round reactive to light and recommendation, extraocular muscle movement were intact, sclera nonicteric, conjunctivae were pale, mucous membranes of the mouth are somewhat dry. Neck: Supple, no JVP, normal carotid upstroke bilaterally, no lymphadenopathy. Chest: Decreased breath sounds at the bases, few rhonchi, no expiratory wheezes, no chest wall tenderness, no intercostal retractions. Heart: First heart sound is normal, second heart sound is normal there is systolic ejection murmur 2/6 located in the left sternal border. Abdomen: Soft, nontender, nondistended, positive bowel sounds. Extremities: There is no edema no calf tenderness DP +2 bilaterally. Neurologic examination: Patient is awake alert and oriented x3, cranial nerves II-12 appear grossly intact, muscle power were 5 out of 5 in upper extremities and 5 out of 5 in bilateral lower extremities, deep tendon reflexes normal bilaterally. ASSESSMENT AND PLAN: 1. Postoperative day #2 status post laminectomy with decompression of L2-L3 L3- L4 and L4-L5 with fusion along with bone graft. Continue current pain management as outlined by spine surgery, patient was instructed to use the incentive spirometer to reduce the incidence of atelectasis and healthcare associated pneumonia, early ambulation, Garza catheter is removed, increase activity, continue physical therapy, continue to monitor the patient very closely. 2. Hypertension and hypertensive cardiovascular disease. Continue metoprolol 25 mg orally twice every day as well as Cardizem CD1 20 mg once every day monitor the patient blood pressure very closely. 3. Mixed hyperlipidemia. Continue patient on rosuvastatin 10 mg once every day. 4. Hypothyroidism. Continue Synthroid 112 mcg orally once every day, monitor the patient TSH and free T4. 5. Diabetes mellitus type 2. Continue patient on Actos 15 mg once every day, we will continue with the sliding scale insulin as well, monitor Accu-Chek before each meal and at bedtime. 6. Intractable nausea and vomiting likely related to a combination of anesthesia as well as pain management. Continue metoclopramide 5 mg IV push every 6 hours as needed, continue Zofran as needed. 7. Paroxysmal atrial fibrillation. Continue patient on flecainide 50 mg orally twice every day. Patient has been off Eliquis for now. 8. Anxiety disorder. Continue fluoxetine 20 mg orally once every day. 9. GERD with esophagitis. Continue Pepcid 20 mg orally once every day. 10. History of asthma. Continue patient on montelukast 10 mg once every day, Symbicort 160/4.5 mcg 2 puffs inhalation twice every day continue nebulized treatment in the form of DuoNeb 3 mm nebulization 4 times every day. 11. DVT prophylaxis. Early ambulation as well as bilateral knee-high KATE hose and bilateral SCDs. 12. GI prophylaxis. Continue with famotidine 20 mg once every day. 13. Constipation. Start the patient on lactulose 20 g orally twice every day as well as Senokot twice every day. 14. We will continue to follow the patient with you. Objective - Vital Signs Vital signs: Vital Signs Temp 97.8 F 08/17/23 07:06 Pulse 82 08/17/23 07:06 Resp 20 08/17/23 11:53 BP 106/57 08/17/23 07:06 Pulse Ox 93 L 08/17/23 07:51 FiO2 Intake & Output 08/16/23 08/17/23 08/17/23 18:59 06:59 18:59 Intake Total 250 480 550 Output Total 400 Balance -150 480 550 Intake: Oral 250 480 550 Output: Urine 400 Other: Voiding Method Indwelling Catheter Toilet Toilet # Voids 3 - Labs CBC & Chem 7: 08/17/23 07:16 08/17/23 07:16 Labs: Abnormal Lab Results - Last 24 Hours (Table) 08/16/23 08/16/23 08/17/23 Range/Units 17:03 20:35 05:23 RBC (4.10-5.20) X 10*6/uL Hgb (12.0-15.0) g/dL Hct (37.2-46.3) % Plt Count (140-440) X 10*3/uL Immature Gran # (0.00-0.04) X 10*3/uL Glucose (70-110) mg/dL POC Glucose (mg/dL) 133 H 190 H 156 H (70-110) mg/dL Calcium (8.7-10.3) mg/dL Total Bilirubin (0.3-1.2) mg/dL AST (13-35) U/L Total Protein (6.2-8.2) g/dL Albumin (3.8-4.9) g/dL 08/17/23 08/17/23 08/17/23 Range/Units 07:16 07:16 11:50 RBC 3.75 L (4.10-5.20) X 10*6/uL Hgb 10.9 L (12.0-15.0) g/dL Hct 32.6 L (37.2-46.3) % Plt Count 122 L (140-440) X 10*3/uL Immature Gran # 0.06 H (0.00-0.04) X 10*3/uL Glucose 162 H (70-110) mg/dL POC Glucose (mg/dL) 139 H (70-110) mg/dL Calcium 8.5 L (8.7-10.3) mg/dL Total Bilirubin 1.5 H (0.3-1.2) mg/dL AST 73 H (13-35) U/L Total Protein 5.1 L (6.2-8.2) g/dL Albumin 3.5 L (3.8-4.9) g/dL
[2023-08-17 17:06] LABS: Glucose,Whole Blood 144 mg/dL (70-110)
[2023-08-17 20:46] LABS: Glucose,Whole Blood 179 mg/dL (70-110)
[2023-08-18 05:52] LABS: Glucose,Whole Blood 176 mg/dL (70-110)
--- NOTE | 2023-08-18 10:42 | P.PN ---
Progress Note - Text Progress Note Date: 08/18/23 Postoperative day #3 Patient is seen and examined today at bedside. She is having a bit more trouble this morning with her mobility and pain control than she was yesterday. the patient has some pain around the surgical site as expected. Pain is being controlled with medication. She is alternating Dilaudid and [place] every 3 hours still. She is still requiring the IV medication. Physical Exam Afebrile with stable vital signs Abdomen is soft nontender. Chest has good excursion deep and space expiration The incision site is clean dry and intact. No erythema there is no purulence. Extremities have not had neurologic change from prior to surgery. She is able to lift her legs above the bed independently. But she is unable to sit up on her own at the side of her bed Calves and thighs were soft nontender without evidence of DVT. Assessment/Plan Postoperative day #3 status post minimally invasive decompression fusion L2-3 L3-4 L4-5 for her degenerative scoliosis with spinal stenosis and lower extreme radiculopathy Patient is progressing as expected from the surgery. She is mobilizing somewhat slowly. She is a little bit of a downturn this morning compared to yesterday and we will try to arrange her pain control to coordinate better with her therapy sessions. We will continue to increase the patient's mobilization with therapy. She still needs a bit of work to try to mobilize more independently and she will continue to work on this. It is very likely that she will need placement post hospitalization possibly on Sunday We will continue pain control with oral or IV medications. I was able to see the patient along with Dr. Medina at bedside. She had some lactulose yesterday for constipation and she will try again today. We'll continue to follow patient closely.
[2023-08-18] MEDS: HYDROcodone/APAP 7.5-325MG 1 EACH TAB PO PRN (10:54)
--- NOTE | 2023-08-18 11:03 | P.PN ---
Subjective Progress Note Date: 08/18/23 HISTORY OF PRESENT ILLNESS: This is a 77-year-old female 1 [place] patient with a previous medical h istory significant for hypertension and hypertensive cardiovascular disease, hyperlipidemia, diabetes mellitus type 2, history of atrial fibrillation, hypothyroidism, GERD with esophagitis, history of degenerative disc disease of the lumbar spine with spinal stenosis and radiculopathy and chronic low back pain, patient underwent decompression and laminectomy of L2-L3 L3-L4 L4-L5 with fusion that was done successfully by Dr. Metzger and I was asked to see the patient for postoperative medical management. Patient is lying down in her recliner chair she is complaining of significant amount of pain in the lumbar spine, she denies any chest pain at this time, she has no shortness of breath, she has no abdominal pain, she had multiple episode of nausea and vomiting yesterday despite using Zofran, she was given a prescription of metoclopramide 5 mg IV push every 6 hours, she seems to be tolerating diet very well, she has not gone to the bathroom yet, she has a Garza catheter in place, we will continue to monitor the patient very closely. 08/16: Patient is laying down in bed her was at the bedside, she is not eating much, she is about 25% of her diet, patient was instructed about in creasing her activity level, Garza catheter is removed, continue physical therapy evaluation, continue current pain management, continue the usage of incentive spirometer she was instructed to use it 10 times an hour, patient's pain management will be optimized we will increase the [place] to 7.5/325 mg 1 tablet every 4 hours as needed, also she has not had a bowel movement, will start her on lactulose 20 g orally twice every day as well as Senokot twice every day, monitor the patient very closely. 08/17: Patient is lying down in bed she is in a lot of pain today, she rated her pain at 10 out of 10 in intensity, she did receive [place] 7.5/325 mg I spoke with the nursing staff about increasing to 2 tablets every 4 hours as needed, continue Flexeril, continue Dilaudid for breakthrough pain, physical therapy to evaluate the patient and get the patient up in the chair, increase activity, increase oral intake of fluid, we will monitor the patient very closely. REVIEW OF SYSTEMS: Constitutional: No documented fever, no chills, no night sweats. No weight change. No weakness, fatigue or lethargy. No daytime sleepiness. EENT: No headache. No blurred vision or double vision, no loss of vision. No loss of Hearing, no ringing in the ears, no dizziness. No nasal drainage or congestion. No epistaxis. No sore throat. Lungs: No shortness of breath, no cough, no sputum production. No wheezing. Reports dyspnea with activity. Cardiovascular: No chest pain, no lower extremity edema. No palpitations. No paroxysmal nocturnal dyspnea. No orthopnea. No lightheadedness or dizziness. No syncopal episodes. Abdominal: Reports no abdominal pain. positive for nausea, vomiting. No diarr hea. No constipation. No bloody or tarry stools reports loss of appetite. Genitourinary: No dysuria, increased frequency, urgency. No urinary retention.Garza catheter in place Musculoskeletal: No myalgias. No muscle weakness, no gait dysfunction, no frequent falls. No back pain. No neck pain. Integumentary: Back wound with dressing no lesions. No rash or pruritus. No unusual bruising. No change in hair or nails. Neurologic: No aphasia. No facial droop. No change in mentation. No head injury. No headache. No paralysis. No paresthesia. Psychiatric: No depression. No anxiety. No mood swings. Endocrine: No abnormal blood sugars. No weight change. PHYSICAL EXAMINATION: General: 77-year-old female laying down in her recliner in no apparent distress. HEENT: Head is atraumatic, normocephalic, pupils were equal round reactive to light and recommendation, extraocular muscle movement were intact, sclera nonicteric, conjunctivae were pale, mucous membranes of the mouth are somewhat dry. Neck: Supple, no JVP, normal carotid upstroke bilaterally, no lymphadenopathy. Chest: Decreased breath sounds at the bases, few rhonchi, no expiratory wheezes, no chest wall tenderness, no intercostal retractions. Heart: First heart sound is normal, second heart sound is normal there is systolic ejection murmur 2/6 located in the left sternal border. Abdomen: Soft, nontender, nondistended, positive bowel sounds. Extremities: There is no edema no calf tenderness DP +2 bilaterally. Neurologic examination: Patient is awake alert and oriented x3, cranial nerves II-12 appear grossly intact, muscle power were 5 out of 5 in upper extremities and 5 out of 5 in bilateral lower extremities, deep tendon reflexes normal bilaterally. ASSESSMENT AND PLAN: 1. Postoperative day #3 status post laminectomy with decompression of L2-L3 L3- L4 and L4-L5 with fusion along with bone graft. Continue current pain management as outlined by spine surgery, patient was instructed to use the incentive spirometer to reduce the incidence of atelectasis and healthcare associated pneumonia, early ambulation, increase activity with physical therapy, increase her pain management to hydrocodone 7.5/325 mg 2 tablets orally every 4 hours as needed, keep Dilaudid for breakthrough pain, continue Flexeril 10 mg orally 3 times every day. 2. Hypertension and hypertensive cardiovascular disease. Continue metoprolol 25 mg orally twice every day as well as Cardizem CD1 20 mg once every day monito r the patient blood pressure very closely. 3. Mixed hyperlipidemia. Continue patient on rosuvastatin 10 mg once every day. 4. Hypothyroidism. Continue Synthroid 112 mcg orally once every day, monitor the patient TSH and free T4. 5. Diabetes mellitus type 2. Continue patient on Actos 15 mg once every day, we will continue with the sliding scale insulin as well, monitor Accu-Chek before each meal and at bedtime. 6. Intractable nausea and vomiting likely related to a combination of anest hesia as well as pain management. Continue metoclopramide 5 mg IV push every 6 hours as needed, continue Zofran as needed. 7. Paroxysmal atrial fibrillation. Continue patient on flecainide 50 mg orally twice every day. Patient has been off Eliquis for now. 8. Anxiety disorder. Continue fluoxetine 20 mg orally once every day. 9. GERD with esophagitis. Continue Pepcid 20 mg orally once every day. 10. History of asthma. Continue patient on montelukast 10 mg once every day, Symbicort 160/4.5 mcg 2 puffs inhalation twice every day continue nebulized treatment in the form of DuoNeb 3 mm nebulization 4 times every day. 11. DVT prophylaxis. Early ambulation as well as bilateral knee-high KATE hose and bilateral SCDs. 12. GI prophylaxis. Continue with famotidine 20 mg once every day. 13. Constipation. continue patient on lactulose 20 g orally twice every day as well as Senokot twice every day. 14. We will continue to follow the patient with you. 15. Hopefully will restart Eliquis tomorrow morning. Objective - Vital Signs Vital signs: Vital Signs Temp 97.4 F L 08/18/23 07:15 Pulse 84 08/18/23 07:15 Resp 18 08/18/23 07:15 BP 96/56 08/18/23 07:15 Pulse Ox 97 08/18/23 07:15 FiO2 Intake & Output 08/17/23 08/18/23 08/18/23 18:59 06:59 18:59 Intake Total 550 10 Output Total 200 200 Balance 350 -190 Intake: IV 10 Invasive Line 2 10 Oral 550 Output: Urine 200 200 Other: Voiding Method Toilet # Voids 4 1 # Bowel Movements 0 0 # Emeses 0 0 - Labs CBC & Chem 7: 08/17/23 07:16 08/17/23 07:16 Labs: Abnormal Lab Results - Last 24 Hours (Table) 08/17/23 08/17/23 08/17/23 Range/Units 07:16 07:16 11:50 RBC 3.75 L (4.10-5.20) X 10*6/uL Hgb 10.9 L (12.0-15.0) g/dL Hct 32.6 L (37.2-46.3) % Plt Count 122 L (140-440) X 10*3/uL Immature Gran # 0.06 H (0.00-0.04) X 10*3/uL Glucose 162 H (70-110) mg/dL POC Glucose (mg/dL) 139 H (70-110) mg/dL Calcium 8.5 L (8.7-10.3) mg/dL Total Bilirubin 1.5 H (0.3-1.2) mg/dL AST 73 H (13-35) U/L Total Protein 5.1 L (6.2-8.2) g/dL Albumin 3.5 L (3.8-4.9) g/dL 08/17/23 08/17/23 08/18/23 Range/Units 17:04 20:45 05:50 RBC (4.10-5.20) X 10*6/uL Hgb (12.0-15.0) g/dL Hct (37.2-46.3) % Plt Count (140-440) X 10*3/uL Immature Gran # (0.00-0.04) X 10*3/uL Glucose (70-110) mg/dL POC Glucose (mg/dL) 144 H 179 H 176 H (70-110) mg/dL Calcium (8.7-10.3) mg/dL Total Bilirubin (0.3-1.2) mg/dL AST (13-35) U/L Total Protein (6.2-8.2) g/dL Albumin (3.8-4.9) g/dL
[2023-08-18 11:54] LABS: Glucose,Whole Blood 152 mg/dL (70-110)
[2023-08-18 17:00] LABS: Glucose,Whole Blood 135 mg/dL (70-110)
[2023-08-18 21:03] LABS: Glucose,Whole Blood 142 mg/dL (70-110)
[2023-08-18] MEDS: ACETAMINOPHEN TAB 500 MG TAB PO PRN (21:16)
[2023-08-18] MEDS: LACTULOSE 20 GM/30 ML CUP PO SCH (22:24)
[2023-08-19 06:08] LABS: Glucose,Whole Blood 148 mg/dL (70-110)
[2023-08-19] MEDS: HEPARIN SODIUM,PORCINE 5,000 UNIT/ML 1 ML VIAL SQ SCH (08:14)
--- NOTE | 2023-08-19 08:54 | P.PN ---
Subjective Progress Note Date: 08/19/23 HISTORY OF PRESENT ILLNESS: This is a 77-year-old female 1 [place] patient with a previous medical h istory significant for hypertension and hypertensive cardiovascular disease, hyperlipidemia, diabetes mellitus type 2, history of atrial fibrillation, hypothyroidism, GERD with esophagitis, history of degenerative disc disease of the lumbar spine with spinal stenosis and radiculopathy and chronic low back pain, patient underwent decompression and laminectomy of L2-L3 L3-L4 L4-L5 with fusion that was done successfully by Dr. Metzger and I was asked to see the patient for postoperative medical management. Patient is lying down in her recliner chair she is complaining of significant amount of pain in the lumbar spine, she denies any chest pain at this time, she has no shortness of breath, she has no abdominal pain, she had multiple episode of nausea and vomiting yesterday despite using Zofran, she was given a prescription of metoclopramide 5 mg IV push every 6 hours, she seems to be tolerating diet very well, she has not gone to the bathroom yet, she has a Garza catheter in place, we will continue to monitor the patient very closely. 08/16: Patient is laying down in bed her was at the bedside, she is not eating much, she is about 25% of her diet, patient was instructed about in creasing her activity level, Garza catheter is removed, continue physical therapy evaluation, continue current pain management, continue the usage of incentive spirometer she was instructed to use it 10 times an hour, patient's pain management will be optimized we will increase the [place] to 7.5/325 mg 1 tablet every 4 hours as needed, also she has not had a bowel movement, will start her on lactulose 20 g orally twice every day as well as Senokot twice every day, monitor the patient very closely. 08/17: Patient is lying down in bed she is in a lot of pain today, she rated her pain at 10 out of 10 in intensity, she did receive [place] 7.5/325 mg I spoke with the nursing staff about increasing to 2 tablets every 4 hours as needed, continue Flexeril, continue Dilaudid for breakthrough pain, physical therapy to evaluate the patient and get the patient up in the chair, increase activity, increase oral intake of fluid, we will monitor the patient very closely. 08/18: Patient is sitting up in bed in no apparent distress, she stated that the pain is better today, she continues to have some limitation in the movement, she continues to work with physical therapy, continue current pain management, continue current bowel regimen, continue to use the incentive spirometer to reduce the incidence of atelectasis and healthcare associated pneumonia, monitor the patient very closely will follow the patient along with orthopedic service. REVIEW OF SYSTEMS: Constitutional: No documented fever, no chills, no night sweats. No weight change. No weakness, fatigue or lethargy. No daytime sleepiness. EENT: No headache. No blurred vision or double vision, no loss of vision. No loss of Hearing, no ringing in the ears, no dizziness. No nasal drainage or congestion. No epistaxis. No sore throat. Lungs: No shortness of breath, no cough, no sputum production. No wheezing. Reports dyspnea with activity. Cardiovascular: No chest pain, no lower extremity edema. No palpitations. No paroxysmal nocturnal dyspnea. No orthopnea. No lightheadedness or dizziness. No syncopal episodes. Abdominal: Reports no abdominal pain. positive for nausea, vomiting. No diarrhea. No constipation. No bloody or tarry stools reports loss of appetite. Genitourinary: No dysuria, increased frequency, urgency. No urinary retention.Garza catheter in place Musculoskeletal: No myalgias. No muscle weakness, no gait dysfunction, no frequent falls. No back pain. No neck pain. Integumentary: Back wound with dressing no lesions. No rash or pruritus. No unusual bruising. No change in hair or nails. Neurologic: No aphasia. No facial droop. No change in mentation. No head injury. No headache. No paralysis. No paresthesia. Psychiatric: No depression. No anxiety. No mood swings. Endocrine: No abnormal blood sugars. No weight change. PHYSICAL EXAMINATION: General: 77-year-old female laying down in her recliner in no apparent distress. HEENT: Head is atraumatic, normocephalic, pupils were equal round reactive to light and recommendation, extraocular muscle movement were intact, sclera nonicteric, conjunctivae were pale, mucous membranes of the mouth are somewhat dry. Neck: Supple, no JVP, normal carotid upstroke bilaterally, no lymphadenopathy. Chest: Decreased breath sounds at the bases, few rhonchi, no expiratory wheezes, no chest wall tenderness, no intercostal retractions. Heart: First heart sound is normal, second heart sound is normal there is systolic ejection murmur 2/6 located in the left sternal border. Abdomen: Soft, nontender, nondistended, positive bowel sounds. Extremities: There is no edema no calf tenderness DP +2 bilaterally. Neurologic examination: Patient is awake alert and oriented x3, cranial nerves II-12 appear grossly intact, muscle power were 5 out of 5 in upper extremities and 5 out of 5 in bilateral lower extremities, deep tendon reflexes normal bilaterally. ASSESSMENT AND PLAN: 1. Postoperative day #4 status post laminectomy with decompression of L2-L3 L3- L4 and L4-L5 with fusion along with bone graft. Continue current pain m anagement as outlined by spine surgery, patient was instructed to use the incentive spirometer to reduce the incidence of atelectasis and healthcare associated pneumonia, early ambulation, increase activity with physical therapy, continue hydrocodone 7.5/325 mg 2 tablets orally every 4 hours as needed, keep Dilaudid for breakthrough pain, continue Flexeril 10 mg orally 3 times every day. 2. Hypertension and hypertensive cardiovascular disease. Continue metoprolol 25 mg orally twice every day as well as Cardizem CD1 20 mg once every day monitor the patient blood pressure very closely. 3. Mixed hyperlipidemia. Continue patient on rosuvastatin 10 mg once every day. 4. Hypothyroidism. Continue Synthroid 112 mcg orally once every day, monitor the patient TSH and free T4. 5. Diabetes mellitus type 2. Continue patient on Actos 15 mg once every day, we will continue with the sliding scale insulin as well, monitor Accu-Chek before each meal and at bedtime. 6. Intractable nausea and vomiting likely related to a combination of anesthesia as well as pain management. Continue metoclopramide 5 mg IV push every 6 hours as needed, continue Zofran as needed. 7. Paroxysmal atrial fibrillation. Continue patient on flecainide 50 mg orally twice every day. Patient has been off Eliquis for now. 8. Anxiety disorder. Continue fluoxetine 20 mg orally once every day. 9. GERD with esophagitis. Continue Pepcid 20 mg orally once every day. 10. History of asthma. Continue patient on montelukast 10 mg once every day, Symbicort 160/4.5 mcg 2 puffs inhalation twice every day continue nebulized treatment in the form of DuoNeb 3 mm nebulization 4 times every day. 11. DVT prophylaxis. Early ambulation as well as bilateral knee-high KATE hose and bilateral SCDs. Start the patient on heparin 5000 units subcutaneous every 12 hours. 12. GI prophylaxis. Continue with famotidine 20 mg once every day. 13. Constipation. continue patient on lactulose 20 g orally three times every day as well as Senokot twice every day. 14. We will continue to follow the patient with you. 15. sill worker consultation for discharge planning she may require subacute rehabilitation. Objective - Vital Signs Vital signs: Vital Signs Temp 98.7 F 08/19/23 07:55 Pulse 85 08/19/23 07:55 Resp 18 08/19/23 07:55 BP 96/57 08/19/23 07:55 Pulse Ox 91 L 08/19/23 07:55 FiO2 Intake & Output 08/18/23 08/19/23 08/19/23 18:59 06:59 18:59 Other: # Voids 0 2 - Labs CBC & Chem 7: 08/17/23 07:16 08/17/23 07:16 Labs: Abnormal Lab Results - Last 24 Hours (Table) 08/18/23 08/18/23 08/18/23 Range/Units 11:52 16:57 21:01 POC Glucose (mg/dL) 152 H 135 H 142 H (70-110) mg/dL 08/19/23 Range/Units 06:04 POC Glucose (mg/dL) 148 H (70-110) mg/dL
--- NOTE | 2023-08-19 09:23 | P.PN ---
Subjective Progress Note Date: 08/19/23 Principal diagnosis: Status post minimally invasive decompression fusion L2-3, L3-4, L4-5 This is a 77 year-old female post minimally invasive decompression fusion L2-3, L3-4, L4-5. This is post-op day 4. The patient was evaluated at the bedside today. The patient denies nausea, vomiting, abdominal pain, shortness of breath, and chest pain this morning. She states her pain is controlled at this time with the [place] 7.5mg and last had Dilaudid yesterday evening. The patient has been up with physical therapy. We are awaiting discharge to skilled rehab, likely tomorrow. Objective - Vital Signs Vital signs: Vital Signs Temp 98.7 F 08/19/23 07:55 Pulse 85 08/19/23 07:55 Resp 18 08/19/23 07:55 BP 96/57 08/19/23 07:55 Pulse Ox 91 L 08/19/23 07:55 FiO2 Intake & Output 08/18/23 08/19/23 08/19/23 18:59 06:59 18:59 Other: # Voids 0 2 - Exam The patient is a 77-year-old female who is in no acute distress. She is alert and oriented 3. Abdomen is soft and nontender. Chest has good excursion with deep inspiration. Incision site is clean dry and intact. No erythema or purulent drainage. Extremities has had a mild neurological change from prior to surgery, she can feel her toes more today. She sustained dorsiflexion and plantar flexion and EHL function. She has good foot and ankle motion. Bilateral calves are soft and nontender. Neurological and circulatory status is intact. - Labs CBC & Chem 7: 08/17/23 07:16 08/17/23 07:16 Labs: Abnormal Lab Results - Last 24 Hours (Table) 08/18/23 08/18/23 08/18/23 Range/Units 11:52 16:57 21:01 POC Glucose (mg/dL) 152 H 135 H 142 H (70-110) mg/dL 08/19/23 Range/Units 06:04 POC Glucose (mg/dL) 148 H (70-110) mg/dL Assessment and Plan (1) Status post lumbar spinal fusion Current Visit: Yes Status: Acute Code(s): Z98.1 - ARTHRODESIS STATUS SNOMED Code(s): 10162154774910 Plan: 1. Continue pain control with [place] 7.5mg 1-2 tablets, wean off Dilaudid. 2. Anticoagulation with Heparin 3. Continue physical therapy and ambulation 4. Anticipate discharge likely to skilled rehab in the next 1-2 days.
[2023-08-19 10:18] LABS: Basophils # (A) 0.02 X 10*3/uL (0.00-0.10); Basophils % (A) 0.2 %; Eosinophils # (A) 0.21 X 10*3/uL (0.04-0.35); Eosinophils % (A) 2.5 %; HCT 29.8 % (37.2-46.3); HGB 10.1 g/dL (12.0-15.0); Lymphocytes # (A) 1.16 X 10*3/uL (0.90-5.00); MCH 29.7 pg (27.0-32.0); MCHC 33.9 g/dL (32.0-37.0); MCV 87.6 FL (80.0-97.0); Mean Platelet Volume 9.8 FL (9.5-12.2); Monocytes # (A) 0.59 X 10*3/uL (0.20-1.00); Monocytes % (A) 7.1 %; NRBC Per 100 WBC 0 X 10*3/uL (0.00-0.01); Neutrophils # (A) 6.25 X 10*3/uL (1.80-7.70); Neutrophils % (A) 75.7 %; Platelet Count 153 X 10*3/uL (140-440); RDW 12.7 % (11.5-14.5); WBC 8.27 X 10*3/uL (4.50-10.00)
[2023-08-19 11:47] LABS: Glucose,Whole Blood 152 mg/dL (70-110)
[2023-08-19 12:19] LABS: ALT 21 U/L (8-44); AST 35 U/L (13-35); Albumin 3.4 g/dL (3.8-4.9); Alkaline Phosphatase 72 U/L (41-126); BUN/Creat Ratio 18.86 Ratio (12.00-20.00); Blood Urea Nitrogen 13.2 mg/dL (9.0-27.0); Calcium 8.7 mg/dL (8.7-10.3); Carbon Dioxide 29.5 mmol/L (21.6-31.8); Chloride 101 mmol/L (96-109); Globulin 1.7 g/dL (1.6-3.3); Glucose 157 mg/dL (70-110); Potassium 3.9 mmol/L (3.5-5.5); Sodium 140 mmol/L (135-145); Total Protein 5.1 g/dL (6.2-8.2)
[2023-08-19 16:38] LABS: Glucose,Whole Blood 120 mg/dL (70-110)
[2023-08-19 20:36] LABS: Glucose,Whole Blood 151 mg/dL (70-110)
[2023-08-20] MEDS: HYDROmorphone 0.5 MG/0.5 ML SYRINGE IVP PRN (00:03)
[2023-08-20 06:16] LABS: Glucose,Whole Blood 133 mg/dL (70-110)
[2023-08-20 08:16] VITALS: BP 108/58; PULSE 79; RESP 18; TEMP 98.8
--- NOTE | 2023-08-20 09:07 | P.PN ---
Subjective Progress Note Date: 08/20/23 HISTORY OF PRESENT ILLNESS: This is a 77-year-old female 1 OR patient with a previous medical h istory significant for hypertension and hypertensive cardiovascular disease, hyperlipidemia, diabetes mellitus type 2, history of atrial fibrillation, hypothyroidism, GERD with esophagitis, history of degenerative disc disease of the lumbar spine with spinal stenosis and radiculopathy and chronic low back pain, patient underwent decompression and laminectomy of L2-L3 L3-L4 L4-L5 with fusion that was done successfully by Dr. Metzger and I was asked to see the patient for postoperative medical management. Patient is lying down in her recliner chair she is complaining of significant amount of pain in the lumbar spine, she denies any chest pain at this time, she has no shortness of breath, she has no abdominal pain, she had multiple episode of nausea and vomiting yesterday despite using Zofran, she was given a prescription of metoclopramide 5 mg IV push every 6 hours, she seems to be tolerating diet very well, she has not gone to the bathroom yet, she has a Garza catheter in place, we will continue to monitor the patient very closely. 08/16: Patient is laying down in bed her was at the bedside, she is not eating much, she is about 25% of her diet, patient was instructed about in creasing her activity level, Garza catheter is removed, continue physical therapy evaluation, continue current pain management, continue the usage of incentive spirometer she was instructed to use it 10 times an hour, patient's pain management will be optimized we will increase the [place] to 7.5/325 mg 1 tablet every 4 hours as needed, also she has not had a bowel movement, will start her on lactulose 20 g orally twice every day as well as Senokot twice every day, monitor the patient very closely. 08/17: Patient is lying down in bed she is in a lot of pain today, she rated her pain at 10 out of 10 in intensity, she did receive [place] 7.5/325 mg I spoke with the nursing staff about increasing to 2 tablets every 4 hours as needed, continue Flexeril, continue Dilaudid for breakthrough pain, physical therapy to evaluate the patient and get the patient up in the chair, increase activity, increase oral intake of fluid, we will monitor the patient very closely. 08/18: Patient is sitting up in bed in no apparent distress, she stated that the pain is better today, she continues to have some limitation in the movement, she continues to work with physical therapy, continue current pain management, continue current bowel regimen, continue to use the incentive spirometer to reduce the incidence of atelectasis and healthcare associated pneumonia, monitor the patient very closely will follow the patient along with orthopedic service. 08/19: Patient sitting up in the chair today she is feeling much better, her pain is well-controlled, she has not had a bowel movement, she is passing gas, she is currently on lactulose 3 times every day as well as Senokot, will increase her activity level, patient is scheduled to be transferred to [facility] later on today for physical therapy and rehabilitation she continues to use the incentive spirometer to reduce the incidence of atelectasis and healthcare associated pneumonia, increase physical activity, patient is medically stable to be discharged to [facility] today. REVIEW OF SYSTEMS: Constitutional: No documented fever, no chills, no night sweats. No weight change. No weakness, fatigue or lethargy. No daytime sleepiness. EENT: No headache. No blurred vision or double vision, no loss of vision. No loss of Hearing, no ringing in the ears, no dizziness. No nasal drainage or congestion. No epistaxis. No sore throat. Lungs: No shortness of breath, no cough, no sputum production. No wheezing. Reports dyspnea with activity. Cardiovascular: No chest pain, no lower extremity edema. No palpitations. No paroxysmal nocturnal dyspnea. No orthopnea. No lightheadedness or dizziness. No syncopal episodes. Abdominal: Reports no abdominal pain. positive for nausea, vomiting. No diarrhea. No constipation. No bloody or tarry stools reports loss of appetite. Genitourinary: No dysuria, increased frequency, urgency. No urinary rete ntion.Garza catheter in place Musculoskeletal: No myalgias. No muscle weakness, no gait dysfunction, no frequent falls. No back pain. No neck pain. Integumentary: Back wound with dressing no lesions. No rash or pruritus. No unusual bruising. No change in hair or nails. Neurologic: No aphasia. No facial droop. No change in mentation. No head injury. No headache. No paralysis. No paresthesia. Psychiatric: No depression. No anxiety. No mood swings. Endocrine: No abnormal blood sugars. No weight change. PHYSICAL EXAMINATION: General: 77-year-old female laying down in her recliner in no apparent distress. HEENT: Head is atraumatic, normocephalic, pupils were equal round reactive to light and recommendation, extraocular muscle movement were intact, sclera nonicteric, conjunctivae were pale, mucous membranes of the mouth are somewhat dry. Neck: Supple, no JVP, normal carotid upstroke bilaterally, no lymphadenopathy. Chest: Decreased breath sounds at the bases, few rhonchi, no expiratory wheezes, no chest wall tenderness, no intercostal retractions. Heart: First heart sound is normal, second heart sound is normal there is systolic ejection murmur 2/6 located in the left sternal border. Abdomen: Soft, nontender, nondistended, positive bowel sounds. Extremities: There is no edema no calf tenderness DP +2 bilaterally. Neurologic examination: Patient is awake alert and oriented x3, cranial nerves II-12 appear grossly intact, muscle power were 5 out of 5 in upper extremities and 5 out of 5 in bilateral lower extremities, deep tendon reflexes normal bilaterally. ASSESSMENT AND PLAN: 1. Postoperative day #5 status post laminectomy with decompression of L2-L3 L3- L4 and L4-L5 with fusion along with bone graft. Continue current pain management as outlined by spine surgery, patient was instructed to use the incentive spirometer to reduce the incidence of atelectasis and healthcare associated pneumonia, early ambulation, increase activity with physical therapy, continue hydrocodone 7.5/325 mg 2 tablets orally every 4 hours as needed, keep Dilaudid for breakthrough pain, continue Flexeril 10 mg orally 3 times every day. 2. Hypertension and hypertensive cardiovascular disease. Continue metoprolol 25 mg orally twice every day as well as Cardizem CD1 20 mg once every day monitor the patient blood pressure very closely. 3. Mixed hyperlipidemia. Continue patient on rosuvastatin 10 mg once every day. 4. Hypothyroidism. Continue Synthroid 112 mcg orally once every day, monitor the patient TSH and free T4. 5. Diabetes mellitus type 2. Continue patient on Actos 15 mg once every day, we will continue with the sliding scale insulin as well, monitor Accu-Chek before each meal and at bedtime. 6. Intractable nausea and vomiting likely related to a combination of anesthesia as well as pain management. Continue metoclopramide 5 mg IV push every 6 hours as needed, continue Zofran as needed. 7. Paroxysmal atrial fibrillation. Continue patient on flecainide 50 mg orally twice every day. Patient has been off Eliquis for now. 8. Anxiety disorder. Continue fluoxetine 20 mg orally once every day. 9. GERD with esophagitis. Continue Pepcid 20 mg orally once every day. 10. History of asthma. Continue patient on montelukast 10 mg once every day, Symbicort 160/4.5 mcg 2 puffs inhalation twice every day continue nebulized treatment in the form of DuoNeb 3 mm nebulization 4 times every day. 11. DVT prophylaxis. Early ambulation as well as bilateral knee-high KATE hose and bilateral SCDs. Start the patient on heparin 5000 units subcutaneous every 12 hours. 12. GI prophylaxis. Continue with famotidine 20 mg once every day. 13. Constipation. continue patient on lactulose 20 g orally three times every day as well as Senokot twice every day. 14. Patient is medically stable to be discharged to [facility] today Objective - Vital Signs Vital signs: Vital Signs Temp 98.8 F 08/20/23 07:27 Pulse 79 08/20/23 07:27 Resp 18 08/20/23 07:27 BP 108/58 08/20/23 07:27 Pulse Ox 92 L 08/20/23 07:27 FiO2 Intake & Output 08/19/23 08/20/23 08/20/23 18:59 06:59 18:59 Other: # Voids 3 1 - Labs CBC & Chem 7: 08/19/23 06:08 08/19/23 06:08 Labs: Abnormal Lab Results - Last 24 Hours (Table) 08/19/23 08/19/23 08/19/23 Range/Units 06:08 06:08 11:46 RBC 3.40 L (4.10-5.20) X 10*6/uL Hgb 10.1 L (12.0-15.0) g/dL Hct 29.8 L (37.2-46.3) % Glucose 157 H (70-110) mg/dL POC Glucose (mg/dL) 152 H (70-110) mg/dL Total Protein 5.1 L (6.2-8.2) g/dL Albumin 3.4 L (3.8-4.9) g/dL 08/19/23 08/19/23 08/20/23 Range/Units 16:37 20:34 06:15 RBC (4.10-5.20) X 10*6/uL Hgb (12.0-15.0) g/dL Hct (37.2-46.3) % Glucose (70-110) mg/dL POC Glucose (mg/dL) 120 H 151 H 133 H (70-110) mg/dL Total Protein (6.2-8.2) g/dL Albumin (3.8-4.9) g/dL
--- NOTE | 2023-08-20 09:19 | P.DS ---
Providers Date of admission: 08/16/23 14:45 Expected date of discharge: 08/20/23 Attending physician: Zachary Metzger Consults: 08/15/23 17:10 Consult Physician Routine Consulting Provider: Twila Medina Consult Reason/Comments: Medical management Do you want consulting provider notified?: Yes Primary care physician: Twila Medina - Discharge Diagnosis(es) (1) Lumbar spinal stenosis Current Visit: Yes Status: Acute (2) Lumbar facet arthropathy Current Visit: Yes Status: Acute (3) Lumbar degenerative disc disease Current Visit: Yes Status: Acute (4) Neurogenic claudication Current Visit: Yes Status: Acute (5) Radiculopathy with lower extremity symptoms Current Visit: Yes Status: Acute (6) Degenerative scoliosis Current Visit: Yes Status: Acute (7) Hyperlipidemia Current Visit: Yes Status: Acute (8) Hypertension Current Visit: Yes Status: Acute (9) Hypothyroidism Current Visit: Yes Status: Acute (10) Type 2 diabetes mellitus Current Visit: Yes Status: Acute (11) Paroxysmal atrial fibrillation Current Visit: Yes Status: Acute (12) Anxiety Current Visit: No Status: Acute Hospital Course: This is a pleasant 77-year-old female who presented with L2-3, L3-4, and L4-5 lumbar spinal stenosis, lumbar degenerative disc disease, lumbar degenerative scoliosis, neurogenic claudication, lumbar facet arthrosis, and low back pain with lower extremity radiculopathy who failed outpatient conservative therapy. She was admitted for an L2-3, L3-4, and L4-5 minimally invasive posterior lateral decompression and fusion with transforaminal lumbar interbody fusion. She has been progressing slowly but has had some progress over the weekend. She does continue to have difficulty with mobilization. She is requiring a walker to aid in ambulation. She does feel she has improved and she is ready for discharge to rehabilitation facility today. Her back pain is better controlled. She is not currently complaining of lower extremity weakness or radiculopathy. Patient has been discussed with case management and they are planning for insurance authorization to be obtained today so that she can be discharged to rehab. The patient tolerated the procedure and has been improving postoperatively. Condition on day of discharge stable. Patient was cleared preoperatively for surgery by Dr. Medina. Patient currently denies any nausea, vomiting, fever, or chills. Patient is eating and voiding freely without difficulty. Surgical dressings have been removed. Patient may shower without a dressing intact. Patient should refrain from driving until at least after their first follow-up appointment in the office. She is encouraged to continue utilizing a walker to aid in ambulation as needed. Patient should avoid excessive bending, lifting, and twisting; no lifting greater than 10 pounds. MAPS has been reviewed. An "Opiod Start Talking" Form has been signed and placed in the patient's chart. A prescription has been written for hydrocodone 7.5 mg / 325 mg, 1-2 tabs every 6 hours as needed for acute pain, dispense #56. She is also given a prescription for baclofen 10 mg, 1 tab, 3 times daily, as needed for muscle spasm, dispense #60. And a prescription for Senokot-S, 1 tab, twice daily, as needed for constipation, dispense #60. Patient's other medical diagnoses include hyperlipidemia, hypertension, hypothyroidism, type 2 diabetes mellitus, paroxysmal atrial fibrillation, and anxiety. Patient must be cleared by medicine prior to discharge to rehab today. We will plan for medicine to complete the med rec prior to discharge. Patient has also not had a bowel movement postoperatively. She has had multiple medications including Senokot, milk of magnesia, and MiraLAX. She is passing gas. We will currently plan to add Fleet enema. Patient should have a bowel movement prior to discharge today. Physical Exam on day of discharge: Patient is awake, alert, and oriented 3 Vital signs stable Good chest excursion with deep inspiration and expiration Abdomen soft nontender No signs or symptoms of DVT; no calf pain Extensor hallucis longus, plantarflexion, and dorsiflexion positive sustained bilateral lower extremities Patient is able to perform good active range of motion of her bilateral lower extremities independently without difficulty Surgical incision sites are clean, dry, and intact; no erythema, purulence, or signs of infection No pain with palpation over the surgical sites of the lumbar spine. Optifoam dressings have been removed from the surgical site; no active drainage Procedures: L2-3, L3-4, and L4-5 minimally invasive posterior lateral decompression and fusion with transforaminal lumbar interbody fusion Patient Condition at Discharge: Stable Plan - Discharge Summary Discharge Rx Participant: No New Discharge Prescriptions: New HYDROcodone/APAP 7.5-325MG [[place] 7.5-325] 1 - 2 each PO Q6HR PRN #56 tab PRN Reason: Pain Baclofen 10 mg PO TID PRN #60 tab PRN Reason: Spasms Sennosides-Docusate Sodium [Senokot-S] 1 tab PO BID PRN #60 tablet PRN Reason: Constipation No Action Aspirin 81 mg PO HS FLUoxetine HCL [PROzac] 20 mg PO QAM Cholecalciferol [Vitamin D3 (25 Mcg = 1000 Iu)] 5,000 unit PO QAM Levothyroxine Sodium [Synthroid] 112 mcg PO QAM estradioL [Vagifem] 10 mcg VAGINAL Q72H Magnus Red 500 mg PO DAILY Ipratropium/Albuterol Sulfate [Combivent Respimat Inhaler] 1 puff INHALATION DAILY PRN PRN Reason: Shortness Of Breath Metoprolol Succinate (ER) [Toprol XL] 25 mg PO BID Mag/Aluminum/Sod Bicarb/Alginc [Gaviscon 80-14.2 mg Tab Chew] 1 tab PO DAILY PRN PRN Reason: Gi Upset dilTIAZem HCL [Diltiazem HCl 24Hr ER (CD)] 120 mg PO HS Famotidine [Pepcid] 20 mg PO HS Pioglitazone [Actos] 15 mg PO QAM Montelukast [Singulair] 10 mg PO HS Fluticasone Propion/Salmeterol [Fluticasone-Salmeterol 230-21] 1 puff INHALATION BID Acetaminophen Tab [Tylenol Tab] 1,000 mg PO Q6HR PRN PRN Reason: Pain Rosuvastatin [Crestor] 10 mg PO HS Flecainide [Tambocor] 50 mg PO BID Discharge Medication List Aspirin 81 mg PO HS 11/03/14 [History] Cholecalciferol [Vitamin D3 (25 Mcg = 1000 Iu)] 5,000 unit PO QAM 11/03/14 [History] FLUoxetine HCL [PROzac] 20 mg PO QAM 11/03/14 [History] Levothyroxine Sodium [Synthroid] 112 mcg PO QAM 07/27/16 [History] estradioL [Vagifem] 10 mcg VAGINAL Q72H 07/27/16 [History] Ipratropium/Albuterol Sulfate [Combivent Respimat Inhaler] 1 puff INHALATION DAILY PRN 11/29/17 [History] Magnus Red 500 mg PO DAILY 11/29/17 [History] Mag/Aluminum/Sod Bicarb/Alginc [Gaviscon 80-14.2 mg Tab Chew] 1 tab PO DAILY PRN 02/09/19 [History] Metoprolol Succinate (ER) [Toprol XL] 25 mg PO BID 02/09/19 [History] Famotidine [Pepcid] 20 mg PO HS 06/09/21 [History] dilTIAZem HCL [Diltiazem HCl 24Hr ER (CD)] 120 mg PO HS 06/09/21 [History] Acetaminophen Tab [Tylenol Tab] 1,000 mg PO Q6HR PRN 08/09/23 [History] Flecainide [Tambocor] 50 mg PO BID 08/09/23 [History] Fluticasone Propion/Salmeterol [Fluticasone-Salmeterol 230-21] 1 puff INHALATION BID 08/09/23 [History] Montelukast [Singulair] 10 mg PO HS 08/09/23 [History] Pioglitazone [Actos] 15 mg PO QAM 08/09/23 [History] Rosuvastatin [Crestor] 10 mg PO HS 08/09/23 [History] Baclofen 10 mg PO TID PRN #60 tab 08/20/23 [Rx] HYDROcodone/APAP 7.5-325MG [[place] 7.5-325] 1 - 2 each PO Q6HR PRN #56 tab 08/20/23 [Rx] Sennosides-Docusate Sodium [Senokot-S] 1 tab PO BID PRN #60 tablet 08/20/23 [Rx] Follow up Appointment(s)/Referral(s): Atilio Yen, ANAMIKA [PHYSICIAN CUSTOMER ACQUISITION MANAGER] - 2 Weeks (Patient may follow-up with Atilio Yen PA-C or Dr. Erich Metzger at [facility] in 2-3 weeks following discharge. ) [facility] [place], [NON-STAFF] - As Needed Activity/Diet/Wound Care/Special Instructions: 1. Patient may shower without a dressing intact. 2. Patient should refrain from driving until at least after their first follow- up appointment in the office. 3. Patient should avoid excessive bending, twisting, lifting; avoid overhead lifting; no lifting greater than 10 pounds 4. Patient may utilize walker to aid in ambulation as needed 5. Take medications as prescribed 6. Patient should avoid anti-inflammatory medications over the next 6 weeks postoperatively 7. Do not soak in tub Discharge Disposition: TRANSFER TO SNF/ECF
[2023-08-20 10:13] LABS: HCT 32.4 % (34.0-46.0); HGB 10.8 gm/dL (11.4-16.0); MCH 29.6 pg (25.0-35.0); MCHC 33.3 g/dL (31.0-37.0); MCV 88.9 fL (80.0-100.0); Mean Platelet Volume 7.3; Platelet Count 201 k/uL (150-450); RBC 3.64 m/uL (3.80-5.40); RDW 12.8 % (11.5-15.5)
[2023-08-20 10:21] LABS: ALT 28 U/L (4-34); AST 37 U/L (14-36); African American GFR (CKD) >90 (>60 ml/min/1.73 sqM); Albumin 3.1 g/dL (3.5-5.0); Albumin/Globulin Ratio 1.3; Alkaline Phosphatase 82 U/L (38-126); Anion Gap 6 mmol/L; Blood Urea Nitrogen 12 mg/dL (7-17); Calcium 8.7 mg/dL (8.4-10.2); Carbon Dioxide 31 mmol/L (22-30); Chloride 101 mmol/L (98-107); Globulin 2.3 g/dL; Glucose 136 mg/dL (74-99); Non-African American GFR(CKD) >90 (>60 ml/min/1.73 sqM); Potassium 3.5 mmol/L (3.5-5.1); Sodium 138 mmol/L (137-145); Total Protein 5.4 g/dL (6.3-8.2)
[2023-08-20 11:29] LABS: Glucose,Whole Blood 131 mg/dL (70-110)
[2023-08-20] MEDS: NA PHOS,M-B/NA PHOS,DI-BA 133 ML ENEMA RECTAL ONE (12:08)
[2023-08-20] MEDS: HYDROcodone/APAP 7.5-325MG 1 EACH TAB PO PRN (12:21)
== END 2023-08-20 13:16 | DRG 454 ==
LOC: OR 10:19 → 4SSUR 17:00 → OR 08-16 14:45 → 4SSUR 08-16 14:45
PROVIDERS: ADMIT Orthopaedic Surgery Orthopaedic Surgery of the Spine; ATTEND Orthopaedic Surgery Orthopaedic Surgery of the Spine
PROC: 0SG1071 Fusion of 2 or more Lumbar Vertebral Joints with Autologous Tissue Substitute, Posterior Approach, Posterior Column, Open Approach (ICD-10-PCS; 2023-08-15)
PROC: 0ST20ZZ Resection of Lumbar Vertebral Disc, Open Approach (ICD-10-PCS; 2023-08-15)
PROC: 01NB0ZZ Release Lumbar Nerve, Open Approach (ICD-10-PCS; 2023-08-15)
PROC: 30233H0 Transfusion of Autologous Whole Blood into Peripheral Vein, Percutaneous Approach (ICD-10-PCS; 2023-08-15)
PROC: 0SG10AJ Fusion of 2 or more Lumbar Vertebral Joints with Interbody Fusion Device, Posterior Approach, Anterior Column, Open Approach (ICD-10-PCS; principal; 2023-08-15 12:00)
DX: M48.062 Spinal stenosis, lumbar region with neurogenic claudication (principal); M51.06 Intervertebral disc disorders with myelopathy, lumbar region; M41.56 Other secondary scoliosis, lumbar region; I13.10 Hypertensive heart and chronic kidney disease without heart failure, with stage 1 through stage 4 chronic kidney disease, or unspecified chronic kidney disease; E11.22 Type 2 diabetes mellitus with diabetic chronic kidney disease; N18.30 Chronic kidney disease, stage 3 unspecified; I48.0 Paroxysmal atrial fibrillation; J45.909 Unspecified asthma, uncomplicated; E89.0 Postprocedural hypothyroidism; E66.9 Obesity, unspecified; M51.16 Intervertebral disc disorders with radiculopathy, lumbar region; F41.9 Anxiety disorder, unspecified; E78.2 Mixed hyperlipidemia; K21.00 Gastro-esophageal reflux disease with esophagitis, without bleeding; K59.00 Constipation, unspecified; G89.29 Other chronic pain; R11.2 Nausea with vomiting, unspecified; I25.10 Atherosclerotic heart disease of native coronary artery without angina pectoris; M43.16 Spondylolisthesis, lumbar region; Z68.33 Body mass index [BMI] 33.0-33.9, adult; T41.205A Adverse effect of unspecified general anesthetics, initial encounter; Z96.652 Presence of left artificial knee joint; Z79.51 Long term (current) use of inhaled steroids; Z79.82 Long term (current) use of aspirin; Z79.890 Hormone replacement therapy; Z79.84 Long term (current) use of oral hypoglycemic drugs; Z79.899 Other long term (current) drug therapy; Z88.8 Allergy status to other drugs, medicaments and biological substances; Z85.828 Personal history of other malignant neoplasm of skin; Z88.5 Allergy status to narcotic agent; Z88.1 Allergy status to other antibiotic agents; Z91.041 Radiographic dye allergy status; Z91.018 Allergy to other foods
CPT/HCPCS: 72100; 80048; 80053; 85025; 85027; 86891; 94640; 94760

== ENCOUNTER → 2023-10-23 | Outpatient (CLI) | payer MEDICARE, OTHER ==
[2023-10-23 16:10] LABS: ALT 18 U/L (8-44); AST 17 U/L (13-35); Albumin 4.5 g/dL (3.8-4.9); Albumin/Globulin Ratio 2.05 Ratio (1.60-3.17); Alkaline Phosphatase 115 U/L (41-126); BUN/Creat Ratio 20.33 Ratio (12.00-20.00); Blood Urea Nitrogen 18.3 mg/dL (9.0-27.0); Calcium 9.6 mg/dL (8.7-10.3); Carbon Dioxide 25.9 mmol/L (21.6-31.8); Chloride 104 mmol/L (96-109); Globulin 2.2 g/dL (1.6-3.3); Glucose 121 mg/dL (70-110); LDL Cholesterol,Calculated 62.6 mg/dL (0.0-131.0); Potassium 4.6 mmol/L (3.5-5.5); Sodium 141 mmol/L (135-145); Total Bilirubin 0.8 mg/dL (0.3-1.2); Total Protein 6.7 g/dL (6.2-8.2)
[2023-10-23 18:03] LABS: Microalbumin Creatinine Ratio <6 mg/g Cr (0-30)
== END | disposition home or self-care (01) ==
LOC: LABWHC1 09:59
PROVIDERS: ATTEND Internal Medicine Endocrinology, Diabetes & Metabolism
DX: E11.9 Type 2 diabetes mellitus without complications (principal); E03.8 Other specified hypothyroidism
CPT/HCPCS: 36415; 80053; 80061; 82043; 82570; 84443

== ENCOUNTER 2024-01-28 19:32 | Emergency (ER) | payer MEDICARE, OTHER ==
[2024-01-28 21:11] LABS: Basophils % (A) 1 %; Eosinophils # (A) 0.2 k/uL (0-0.7); Eosinophils % (A) 3 %; HCT 39.4 % (34.0-46.0); HGB 13.2 gm/dL (11.4-16.0); Lymphocytes # (A) 2.6 k/uL (1.0-4.8); Lymphocytes % (A) 44 %; MCH 28.5 pg (25.0-35.0); MCHC 33.6 g/dL (31.0-37.0); MCV 84.7 fL (80.0-100.0); Mean Platelet Volume 7.4; Monocytes # (A) 0.3 k/uL (0-1.0); Monocytes % (A) 6 %; Neutrophils # (A) 2.5 k/uL (1.3-7.7); Neutrophils % (A) 44 %; Platelet Count 201 k/uL (150-450); RBC 4.64 m/uL (3.80-5.40); RDW 14.2 % (11.5-15.5); WBC 5.8 k/uL (3.8-10.6)
[2024-01-28 21:17] LABS: ALT 20 U/L (4-34); AST 24 U/L (14-36); African American GFR (CKD) 70 (>60 ml/min/1.73 sqM); Albumin 4.1 g/dL (3.5-5.0); Alkaline Phosphatase 78 U/L (38-126); Anion Gap 6 mmol/L; Blood Urea Nitrogen 20 mg/dL (7-17); Calcium 9.6 mg/dL (8.4-10.2); Carbon Dioxide 32 mmol/L (22-30); Chloride 102 mmol/L (98-107); Glucose 106 mg/dL (74-99); Non-African American GFR(CKD) 60 (>60 ml/min/1.73 sqM); Potassium 4.4 mmol/L (3.5-5.1); Sodium 140 mmol/L (137-145); Total Bilirubin 0.7 mg/dL (0.2-1.3); Total Protein 6.6 g/dL (6.3-8.2)
[2024-01-28 21:21] LABS: Partial Thromboplastin Time 27.8 sec (22.0-30.0); Prothrombin Time 11.3 sec (10.0-12.5)
[2024-01-28 21:27] VITALS: TEMP 98.1
--- NOTE | 2024-01-28 22:35 | XR ---
EXAMINATION TYPE: XR chest 2V DATE OF EXAM: 01/28/2024 9:55 PM CLINICAL INDICATION:Female, 78 years old with history of palpitations; [facility] COMPARISON: Chest radiographs from 08/06/2023 TECHNIQUE: XR chest 2V Frontal view of the chest. FINDINGS: Lungs/Pleura: There is hazy patchy airspace opacity in the right lower lung. No pleural effusions or pneumothorax. Pulmonary vascularity: Unremarkable. Heart/mediastinum: Cardiac silhouette is mildly enlarged but similar to prior radiograph. Musculoskeletal: No acute osseous pathology. Other findings: None IMPRESSION: Patchy airspace opacity seen in the right lower lung may relate to airspace disease versus atelectasi s. Mild but stable cardiomegaly.
--- NOTE | 2024-01-29 00:04 | ED ---
Arrhythmia/Palpitations HPI - General Chief Complaint: Arrhythmia/Palpitations Stated Complaint: Chest Pressure Time Seen by Provider: 01/28/24 21:28 Source: patient Mode of arrival: ambulatory Limitations: no limitations - History of Present Illness Initial Comments: 78-year-old female presenting with chief complaint of palpitations. Patient states that starting around 3:00 today she had the sensation that her heart was skipping a beat. She has had issues with palpitations for many years and has had extensive testing done by her side gluer in [place]. She states that she was experiencing some chest heaviness. No shortness of breath. No cough, co ngestion, sore throat, fever, chills. No nausea vomiting or abdominal pain. She does have some lower extremity edema. - Related Data Home Medications Medication Instructions Recorded Confirmed Aspirin 81 mg PO HS 11/03/14 08/09/23 Cholecalciferol [Vitamin D3 (25 5,000 unit PO QAM 11/03/14 08/09/23 Mcg = 1000 Iu)] FLUoxetine HCL [PROzac] 20 mg PO QAM 11/03/14 08/09/23 Levothyroxine Sodium [Synthroid] 112 mcg PO QAM 07/27/16 08/09/23 estradioL [Vagifem] 10 mcg VAGINAL Q72H 07/27/16 08/09/23 Ipratropium/Albuterol Sulfate 1 puff INHALATION DAILY PRN 11/29/17 08/09/23 [Combivent Respimat Inhaler] Magnus Red 500 mg PO DAILY 11/29/17 08/09/23 Mag/Aluminum/Sod Bicarb/Alginc 1 tab PO DAILY PRN 02/09/19 08/09/23 [Gaviscon 80-14.2 mg Tab Chew] Metoprolol Succinate (ER) [Toprol 25 mg PO BID 02/09/19 08/09/23 XL] Famotidine [Pepcid] 20 mg PO HS 06/09/21 08/09/23 dilTIAZem HCL [dilTIAZem HCL 24Hr 120 mg PO HS 06/09/21 08/09/23 ER (CD)] Acetaminophen Tab [Tylenol] 1,000 mg PO Q6HR PRN 08/09/23 08/09/23 Flecainide [Tambocor] 50 mg PO BID 08/09/23 08/09/23 Fluticasone Propion/Salmeterol 1 puff INHALATION BID 08/09/23 08/09/23 [Fluticasone-Salmeterol 230-21] Montelukast [Singulair] 10 mg PO HS 08/09/23 08/09/23 Pioglitazone [Actos] 15 mg PO QAM 08/09/23 08/09/23 Rosuvastatin [Crestor] 10 mg PO HS 08/09/23 08/09/23 Previous Rx's Medication Instructions Recorded Baclofen 10 mg PO TID PRN #60 tab 08/20/23 HYDROcodone/APAP 7.5-325MG [[place] 1 - 2 each PO Q6HR PRN #56 tab 08/20/23 7.5-325] Lactulose [Cephulac] 20 gm PO TID #1800 ml 08/20/23 Sennosides-Docusate Sodium 1 tab PO BID PRN #60 tablet 08/20/23 [Senokot-S] polyethylene glycoL 3350 [Miralax] 17 gm PO DAILY packet 08/20/23 Azithromycin [Zithromax Z Pack] 1 tab PO DIRECTED #6 tab 01/29/24 Allergies Allergy/AdvReac Type Severity Reaction Status Date / Time atorvastatin calcium Allergy Itching Verified 01/28/24 19:39 [From Lipitor] codeine AdvReac Nausea Verified 01/28/24 19:39 erythromycin base AdvReac Abdominal Verified 01/28/24 19:39 Pain Iodinated Contrast Media AdvReac KIDNEY Verified 01/28/24 19:39 [Iodinated Contrast Media - ISSUES--nephro Oral and] does not want morphine AdvReac Nausea Verified 01/28/24 19:39 sulfamethoxazole AdvReac kidney Verified 01/28/24 19:39 [From Bactrim] issues--nephro does not want trimethoprim [From Bactrim] AdvReac kidney Verified 01/28/24 19:39 issues--nephro does not want yeast, dried [yeast] AdvReac sinus Verified 01/28/24 19:39 issues Review of Systems ROS Statement: Those systems with pertinent positive or pertinent negative responses have been documented in the HPI. ROS Other: All systems not noted in ROS Statement are negative. Past Medical History Past Medical History: Atrial Fibrillation, Asthma, Cancer, Diabetes Mellitus, GERD/Reflux, Hyperlipidemia, Osteoarthritis (OA), Renal Disease, Thyroid Disorder Additional Past Medical History / Comment(s): Hashimotos, back/neck pain- DDD, SPINAL STENOSIS, KIDNEY STONES, UTI, vertigo, pinched nerve, elevated t riglycerides, stage 3 kidney stones, skin cancer, sinus infection 1 month ago, resolved now. History of Any Multi-Drug Resistant Organisms: None Reported Past Surgical History: Adenoidectomy, Breast Surgery, Section, Cholecystectomy, Heart Catheterization, Joint Replacement, Orthopedic Surgery, Tonsillectomy Additional Past Surgical History / Comment(s): Thyroidectomy, LT KNEE REPLACEMENT(HAD SEVERAL SX ON THAT KNEE), ONE HAD A TORN MENISCUS-HAD SX THEN GOT INFECTION /SEPTIC HAD TO REOPEN left knee) MILES CARPAL TUNNEL, Cold Knife Conization, 3 RT BREAST LUMPECTOMY, miles cataracts. Past Anesthesia/Blood Transfusion Reactions: Motion Sickness, Postoperative Nausea & Vomiting (PONV) Additional Past Anesthesia/Blood Transfusion Reaction / Comment(s): No hx blood transfusion. Past Psychological History: Anxiety, Depression Smoking Status: Never smoker Past Alcohol Use History: Occasional Past Drug Use History: Marijuana - Past Family History Daughter(s) Additional Family Medical History / Comment(s): has 2 sons, daughter is Mother Family Medical History: No Reported History Additional Family Medical History / Comment(s): . General Exam Limitations: no limitations General appearance: alert, in no apparent distress Head exam: Present: atraumatic, normocephalic Eye exam: Present: normal appearance, EOMI Neck exam: Present: normal inspection. Absent: meningismus Respiratory exam: Present: normal lung sounds bilaterally. Absent: respiratory distress, wheezes, rales, rhonchi, stridor Cardiovascular Exam: Present: regular rate, normal rhythm, normal heart sounds. Absent: systolic murmur, diastolic murmur, rubs, gallop, clicks Extremities exam: Present: pedal edema Neurological exam: Present: alert, oriented X3 Psychiatric exam: Present: normal affect, normal mood Skin exam: Present: warm, dry Course Vital Signs 01/28/24 01/28/24 01/28/24 19:39 21:25 23:00 Temperature 97.7 F 98.1 F Pulse Rate 81 70 62 Respiratory 18 18 18 Rate Blood Pressure 111/66 133/63 110/53 O2 Sat by Pulse 70 L 99 98 Oximetry 01/29/24 01/29/24 00:27 00:48 Temperature 98.1 F Pulse Rate 60 62 Respiratory 17 18 Rate Blood Pressure 112/55 118/65 O2 Sat by Pulse 98 98 Oximetry Medical Decision Making - Medical Decision Making Was pt. sent in by a medical professional or institution (, PA, [employer], urgent care, hospital, or retirement...) When possible be specific @ -No Did you speak to anyone other than the patient for history (EMS, parent, family, police, friend...)? What history was obtained from this source @ -No Did you review nursing and triage notes (agree or disagree)? Why? @ -I reviewed and agree with nursing and triage notes Were old charts reviewed (outside hosp., previous admission, EMS record, old EKG, old radiological studies, urgent care reports/EKG's, retirement records)? Report findings @ -No old charts were reviewed Differential Diagnosis (chest pain, altered mental status, abdominal pain women, abdominal pain men, vaginal bleeding, weakness, fever, dyspnea, syncope, hea dache, dizziness, GI bleed, back pain, seizure, CVA, palpatations, mental health, musculoskeletal)? @ -Differential Palpitations Ventricular arrhythmias, atrial arrhythmias, myocardial infarction, anemia, thyrotoxicosis, electrolyte imbalance, hypokalemia, pulmonary embolism, pulmonary disease, drugs, alcohol, anxiety, stress.... This is not meant to be an all-inclusive list. EKG interpreted by me (3pts min.). @ -EKG shows sinus rhythm with first-degree AV block with occasional ectopic premature complexes. Ventricular rate 68. IL interval 232. QRS 74. QT 431. QTc 448 X-rays interpreted by me (1pt min.). @ -Chest x-ray shows patchy airspace opacity seen in the right lower lung may r elate to airspace disease versus atelectasis. Mild but stable cardiomegaly CT interpreted by me (1pt min.). @ -None done U/S interpreted by me (1pt. min.). @ -None done What testing was considered but not performed or refused? (CT, X-rays, U/S, labs)? Why? @ -None What meds were considered but not given or refused? Why? @ -None Did you discuss the management of the patient with other professionals (professionals i.e. Dr., PA, [employer], lab, RT, psych nurse, social work professor, specialty foods cook, teacher, environmental compliance officer, case assembler)? Give summary @ -No Was smoking cessation discussed for >3mins.? @ -No Was critical care preformed (if so, how long)? @ -No Were there social determinants of health that impacted care today? How? (Homelessness, low income, unemployed, alcoholism, drug addiction, transportat ion, low edu. Level, literacy, decrease access to med. care, alf, rehab)? @ -No Was there de-escalation of care discussed even if they declined (Discuss DNR or withdrawal of care, Hospice)? DNR status @ -No What co-morbidities impacted this encounter? (DM, HTN, Smoking, COPD, CAD, Cancer, CVA, ARF, Chemo, Hep., AIDS, mental health diagnosis, sleep apnea, morbid obesity)? @ -None Was patient admitted / discharged? Hospital course, mention meds given and route, prescriptions, significant lab abnormalities, going to OR and other pertinent info. @ -78-year-old female presenting chief complaint of palpitations. History and physical exam were conducted. No leukocytosis or anemia. Negative troponin. Chest x-ray shows mild with stable cardiomegaly with possible patchy infiltrate. BNP 416, no history of CHF. EKG is showing sinus rhythm. Patient is educated on today's findings. I offered the patient admission, she would prefer to try outpatient therapy and follow-up with her PCP this week, I believe this is reasonable, shared decision making is utilized. She will be treated for her infiltrate azithromycin. She is agreeable with this plan. I discussed this case with my attending Dr. Beltran Undiagnosed new problem with uncertain prognosis? @ -No Drug Therapy requiring intensive monitoring for toxicity (Heparin, Nitro, Insulin, Cardizem)? @ -No Were any procedures done? @ -No Diagnosis/symptom? @ -Pneumonia Acute, or Chronic, or Acute on Chronic? @ -Acute Uncomplicated (without systemic symptoms) or Complicated (systemic symptoms)? @ -Uncomplicated Side effects of treatment? @ -No Exacerbation, Progression, or Severe Exacerbation? @ -No Poses a threat to life or bodily function? How? (Chest pain, [place], [place], pneumonia, PE, COPD, DKA, ARF, appy, cholecystitis, CVA, Diverticulitis, Homicidal, Suicidal, threat to staff... and all critical care pts) @ -Potential if not treated properly - Lab Data Result diagrams: 01/28/24 19:56 01/28/24 19:56 Lab Results 01/28/24 01/28/24 01/28/24 Range/Units 19:56 19:56 19:56 WBC 5.8 (3.8-10.6) k/uL RBC 4.64 (3.80-5.40) m/uL Hgb 13.2 (11.4-16.0) gm/dL Hct 39.4 (34.0-46.0) % MCV 84.7 (80.0-100.0) fL MCH 28.5 (25.0-35.0) pg MCHC 33.6 (31.0-37.0) g/dL RDW 14.2 (11.5-15.5) % Plt Count 201 (150-450) k/uL MPV 7.4 Neutrophils % 44 % Lymphocytes % 44 % Monocytes % 6 % Eosinophils % 3 % Basophils % 1 % Neutrophils # 2.5 (1.3-7.7) k/uL Lymphocytes # 2.6 (1.0-4.8) k/uL Monocytes # 0.3 (0-1.0) k/uL Eosinophils # 0.2 (0-0.7) k/uL Basophils # 0.0 (0-0.2) k/uL PT 11.3 (10.0-12.5) sec INR 1.0 (<1.2) APTT 27.8 (22.0-30.0) sec Sodium 140 (137-145) mmol/L Potassium 4.4 (3.5-5.1) mmol/L Chloride 102 (98-107) mmol/L Carbon Dioxide 32 H (22-30) mmol/L Anion Gap 6 mmol/L BUN 20 H (7-17) mg/dL Creatinine 0.93 (0.52-1.04) mg/dL Est GFR (CKD-EPI)AfAm 70 (>60 ml/min/1.73 sqM) Est GFR (CKD-EPI)NonAf 60 (>60 ml/min/1.73 sqM) Glucose 106 H (74-99) mg/dL Calcium 9.6 (8.4-10.2) mg/dL Total Bilirubin 0.7 (0.2-1.3) mg/dL AST 24 (14-36) U/L ALT 20 (4-34) U/L Alkaline Phosphatase 78 (38-126) U/L Troponin I (0.000-0.034) ng/mL NT-Pro-B Natriuret Pep pg/mL Total Protein 6.6 (6.3-8.2) g/dL Albumin 4.1 (3.5-5.0) g/dL TSH (0.465-4.680) mIU/L 01/28/24 01/28/24 01/28/24 Range/Units 19:56 19:56 19:56 WBC (3.8-10.6) k/uL RBC (3.80-5.40) m/uL Hgb (11.4-16.0) gm/dL Hct (34.0-46.0) % MCV (80.0-100.0) fL MCH (25.0-35.0) pg MCHC (31.0-37.0) g/dL RDW (11.5-15.5) % Plt Count (150-450) k/uL MPV Neutrophils % % Lymphocytes % % Monocytes % % Eosinophils % % Basophils % % Neutrophils # (1.3-7.7) k/uL Lymphocytes # (1.0-4.8) k/uL Monocytes # (0-1.0) k/uL Eosinophils # (0-0.7) k/uL Basophils # (0-0.2) k/uL PT (10.0-12.5) sec INR (<1.2) APTT (22.0-30.0) sec Sodium (137-145) mmol/L Potassium (3.5-5.1) mmol/L Chloride (98-107) mmol/L Carbon Dioxide (22-30) mmol/L Anion Gap mmol/L BUN (7-17) mg/dL Creatinine (0.52-1.04) mg/dL Est GFR (CKD-EPI)AfAm (>60 ml/min/1.73 sqM) Est GFR (CKD-EPI)NonAf (>60 ml/min/1.73 sqM) Glucose (74-99) mg/dL Calcium (8.4-10.2) mg/dL Total Bilirubin (0.2-1.3) mg/dL AST (14-36) U/L ALT (4-34) U/L Alkaline Phosphatase (38-126) U/L Troponin I <0.012 (0.000-0.034) ng/mL NT-Pro-B Natriuret Pep 416 pg/mL Total Protein (6.3-8.2) g/dL Albumin (3.5-5.0) g/dL TSH 2.400 (0.465-4.680) mIU/L Disposition Clinical Impression: Pneumonia Disposition: HOME SELF-CARE Condition: Good Instructions (If sedation given, give patient instructions): Heart Palpitations (ED), Community Acquired Pneumonia (ED) Additional Instructions: Follow-up with your PCP in 1 to 3 days. Report back to ER with any new or worsening symptoms. Prescriptions: Azithromycin [Zithromax Z Pack] 1 tab PO DIRECTED #6 tab Is patient prescribed a controlled substance at d/c from ED?: No Referrals: Twila Medina MD [Primary Care Provider] - 1-2 days Time of Disposition: 00:29
[2024-01-29 00:50] VITALS: BP 118/65; PULSE 62; RESP 18
== END 2024-01-29 00:49 | disposition home or self-care (01) ==
LOC: EC 19:32
DX: J18.9 Pneumonia, unspecified organism (principal); Z88.6 Allergy status to analgesic agent; Z88.5 Allergy status to narcotic agent; Z88.2 Allergy status to sulfonamides; Z91.041 Radiographic dye allergy status; Z88.1 Allergy status to other antibiotic agents; Z91.018 Allergy to other foods
CPT/HCPCS: 36415; 71046; 80053; 83880; 84443; 84484; 85025; 85610; 85730; 93005; 99285

== ENCOUNTER → 2024-03-18 | Outpatient (CLI) | payer MEDICARE, OTHER ==
--- NOTE | 2024-03-20 09:58 | US ---
EXAMINATION TYPE: US carotid duplex BILAT DATE OF EXAM: 03/18/2024 COMPARISON: NONE CLINICAL INDICATION: Female, 78 years old with history of Z13.6 ENCOUNTER FOR SCREENING FOR CARDIOVAS CULAR D; No HTN, No hx tia or stroke TECHNIQUE: Grayscale, color Doppler and spectral Doppler evaluation of the bilateral carotid systems and vertebral arteries.Indirect Doppler criteria was utilized. FINDINGS: EXAM MEASUREMENTS: RIGHT: Peak Systolic Velocity (PSV) cm/sec ----- Right CCA: 78.7 ----- Right ICA: 117.7 ----- Right ECA: 110.8 ICA/CCA ratio: 1.5 RIGHT: End Diastole cm/sec ----- Right CCA: 18.2 ----- Right ICA: 19.2 ----- Right ECA: 0.0 LEFT: Peak Systolic Velocity (PSV) cm/sec ----- Left CCA: 131.8 ----- Left ICA: 84.5 ----- Left ECA: 82.3 ICA/CCA ratio: 0.6 LEFT: End Diastole cm/sec ----- Left CCA: 20.4 ----- Left ICA: 27.4 ----- Left ECA: 0.0 VERTEBRALS (direction of flow): Right Vertebral: Antegrade Left Vertebral: Antegrade Rhythm: Normal SEPTIC CLEANER NOTES: Slightly elevated left proximal CCA. Left CCA / bulb wall thickening. IMPRESSION: Right: Less than 50% stenosis of the carotid bifurcation. Normal (no stenosis)=ICA PSV < 125 cm/s: ra chito < 2.0: ICA EDV<40 cm/s. Left: Less than 50% stenosis of the carotid bifurcation. Normal (no stenosis)=ICA PSV < 125 cm/s: rat io < 2.0: ICA EDV<40 cm/s. Criteria for Assigning % of Stenosis / Diameter reduction (Estimation based on the indirect measurements of the internal carotid artery velocities (ICA PSV). 1. Normal (no stenosis)=ICA PSV < 125 cm/s: ratio < 2.0: ICA EDV<40 cm/s. 2. Less than 50% stenosis=ICA PSV < 125 cm/s: ratio < 2.0: ICA EDV<40 cm/s. 3. 50 to 69% stenosis=ICA PSV of 125 to 230 cm/s: ration 2.0 ? 4.0: ICA EDV 40-100 cm/s. 4. Greater than 70% stenosis to near occlusion= ICA PSV > 230 cm/s: ratio > 4.0: ICA EDV > 100 cm/s. 5. Near occlusion= ICA PSV velocities may be low or undetectable: variable ratio and ICA EDV. 6. Total occlusion=unable to detect flow. [facility], , 03/20/2024 9:56 AM
== END | disposition home or self-care (01) ==
LOC: RADUSWWP 12:58
PROVIDERS: ATTEND Internal Medicine
CPT/HCPCS: 93880